=== PATIENT | male | born 1975 | race Caucasian/White ===

== ENCOUNTER → 2018-06-08 14:05 | Outpatient (CLI) | payer BC, SELFPAY ==
[2018-06-08 15:46] LABS: Absolute Lymphocyte Count 1.01 X10^3/ul (0.83-4.51); Absolute Neutrophil Count 5.2 X10^3/uL (2.0-7.7); Basophil# 0.02 X10^3/uL; Basophil% 0.3 % (0-1); Eosinophil# 0.12 X10^3/uL; Eosinophils% 1.7 % (0-5); Hemoglobin 14.5 g/dl (13.0-16.5); Lymphocyte # 1.01 X10^3/ul (4.0); Lymphocyte % 14.7 % (19-41); Mean Corp Hgb Conc 33.7 g/gl (32-36); Mean Corpuscular Hgb 30.4 pg (27.0-32.0); Mean Corpuscular Volume 90.1 fL (80-94); Mean Platelet Vol. 10.1 fl (6.2-12.0); Monocyte# 0.46 X10^3/uL; Monocyte% 6.7 % (0-10); Neutrophil # 5.24 X10^3/uL (2.7-7.7); Neutrophil % 76.5 % (47-70); Platelet Count 159 K/mm3 (150-450); RBC Distribution Width CV 13.2 % (11.6-14.6); Red Blood Count 4.77 M/mm3 (4.6-6.2); White Blood Count 6.9 K/mm3 (4.4-11.0)
[2018-06-08 15:47] LABS: POSITIVE COUNT NO; POSITIVE DIFFERENTIAL NO; POSITIVE MORPHOLOGY NO
[2018-06-08 15:56] LABS: ALB/GLOB Ratio 0.9 RATIO (0.9-2.4); AST(SGOT) 29 U/L (15-37); Alanine Aminotransfer ALT/SGPT 55 U/L (16-61); Albumin, Serum 3.7 g/dL (3.2-5.0); Alkaline Phosphatase 58 U/L (45-117); Anion Gap 12 (5-15); BUN 18 mg/dL (7-18); BUN/Creat Ratio 14.1 RATIO (10-20); CPK Total, Creatine Kinase 98 U/L (39-308); Calcium,Total 8.7 mg/dL (8.5-10.1); Chloride 102 mmol/L (98-107); Creatinine, Serum 1.28 mg/dL (0.70-1.30); EST Glomerular Filtration Rate 65 mL/min (>60); Est Glom Filt Rate - Afr Amer 78 mL/min (>60); Globulin 4.1 g/dL (2.2-4.2); Glucose 107 mg/dL (74-106); Potassium 3.8 mmol/L (3.5-5.1); Protein, Total 7.8 g/dL (6.4-8.2); Sodium Level 140 mmol/L (136-145)
== END ==
PROVIDERS: Family Provider Family Medicine; PCP Family Medicine; Visit Provider Family Medicine
DX: M79.1 Myalgia (principal)
CPT/HCPCS: 36415; 80053; 82550; 85025; 86140

== ENCOUNTER 2018-09-09 10:59 | Emergency (ER) | payer BC, SELFPAY ==
[2018-09-09] VITALS (10 sets, daily range): BP systolic 115–150; BP diastolic 72–123; PULSE 59–148; RESP 11–20; TEMP 36.5; O2SAT 96–100; BMI 33.7; BMI 34.2
[2018-09-09] MEDS: dilTIAZem 25 MG/5 ML Vial IV BOLUS (11:13)
[2018-09-09 11:42] LABS: Absolute Lymphocyte Count 2.47 X10^3/ul (0.83-4.51); Absolute Neutrophil Count 3.2 X10^3/uL (2.0-7.7); Basophil# 0.03 X10^3/uL; Basophil% 0.5 % (0-1); Eosinophil# 0.42 X10^3/uL; Eosinophils% 6.3 % (0-5); Hematocrit 44.4 % (40-54); Hemoglobin 14.7 g/dl (13.0-16.5); Lymphocyte # 2.47 X10^3/ul (4.0); Lymphocyte % 37.2 % (19-41); Mean Corp Hgb Conc 33.1 g/gl (32-36); Mean Corpuscular Volume 90.6 fL (80-94); Mean Platelet Vol. 9.6 fl (6.2-12.0); Monocyte# 0.49 X10^3/uL; Monocyte% 7.4 % (0-10); Neutrophil # 3.23 X10^3/uL (2.7-7.7); Neutrophil % 48.6 % (47-70); Platelet Count 195 K/mm3 (150-450); RBC Distribution Width CV 13.7 % (11.6-14.6); RBC Distribution Width SD 45.4 fl (35.1-43.9); White Blood Count 6.6 K/mm3 (4.4-11.0)
[2018-09-09 11:44] LABS: POSITIVE COUNT NO; POSITIVE DIFFERENTIAL NO; POSITIVE MORPHOLOGY NO
[2018-09-09 11:48] LABS: International Normalized Ratio 0.9; Prothrombin Time (Protime)PT. 12.3 SECONDS (11.7-14.9)
--- NOTE | 2018-09-09 11:48 | EKG12_ITS ---
Test Reason : CP Blood Pressure : / mmHG Vent. Rate : 129 BPM Atrial Rate : 113 BPM P-R Int : 000 ms QRS Dur : 096 ms QT Int : 324 ms P-R-T Axes : 000 035 -52 degrees QTc Int : 474 ms Atrial fibrillation with rapid ventricular response Nonspecific ST and T wave abnormality Abnormal ECG Confirmed by DIAZ PETERSON, SHARRI ([id number]), supervising editor trailer AZALEA ARIZA ([id number] on 09/12/2018 10:26:28 AM Referred By: NIURKA/GWEN Confirmed By:SHARRI PERALES MD
[2018-09-09 11:49] LABS: Partial Thromboplast Time 25.1 Seconds (24.1-36.2)
[2018-09-09 11:59] LABS: Anion Gap 13 (5-15); BUN 21 mg/dL (7-18); BUN/Creat Ratio 19.8 RATIO (10-20); Calcium,Total 8.7 mg/dL (8.5-10.1); Chloride 103 mmol/L (98-107); Creatinine, Serum 1.06 mg/dL (0.70-1.30); EST Glomerular Filtration Rate 80 mL/min (>60); Est Glom Filt Rate - Afr Amer 97 mL/min (>60); Estimated Creatinine Clearance 110.91 ml/min; Glucose 85 mg/dL (74-106); Potassium 3.6 mmol/L (3.5-5.1); Sodium Level 138 mmol/L (136-145)
[2018-09-09] MEDS: Enoxaparin 120 MG/0.8 ML Syringe SC (12:53)
[2018-09-09] MEDS: fentaNYL 100 MCG/2 ML Ampul 50 MCG IV (13:58)
[2018-09-09] MEDS: Propofol 200 MG/20 ML Vial IV BOLUS (14:00)
--- NOTE | 2018-09-09 14:07 | ED.RN ---
1401 - 100mg propofol given slowly by dr. cheatham. 1403 - 70mg propofol given slowing by dr. cheatham.
--- NOTE | 2018-09-09 14:44 | ED.VISSUMM ---
- ER Visit Summary Date of Service: 09/09/18 Chief Complaint: Palpitations History of Present Illness: The patient is a 43 M who presents with palpitations that began today while he was at his office working. Patient states he felt his heart going to an irregular rhythm. Patient describes as a fluttering. Patient states nothing has helped. Patient took 50 mg of metoprolol prior to arrival with no improvement. Patient admits to some shortness of breath with walking. Patient admits to some nausea but denies any vomiting. Patient denies any diaphoresis. Patient denies any cough or fever. Patient denies any lightheadedness. Patient states he had a history of atrial fibrillation in the past and had to be cardioverted for that. Physical Examination: Vital signs are stable except for a tachycardia of 148 and elevated blood pressure 150/111. Patient is afebrile. Patient is in no acute distress. Oral mucosa is pink and moist. Neck is supple. Trachea is midline. No JVD noted. Heart was irregularly irregular with no murmurs. Lungs are clear and equal bilaterally. There is good respiratory effort noted. Abdomen is soft and nontender. Cranial nerves II through XII are intact. There are no focal motor or sensory deficits noted. The remaining physical exam is within normal limits. Test Results: EKG showed atrial fibrillation with a rate of 129. There are nonspecific ST-T wave changes. EKG from his office was faxed over and was essentially unchanged. CBC, metabolic profile, and troponin were obtained and were all essentially within normal limits. Emergency Department Course and Treatment: Patient was given Cardizem 25 mg bolus. Patient's heart rate improved to 110 but remained in atrial fibrillation. Case was discussed with Dr. Pérez. He recommended giving the patient Lovenox and waiting 1 hour before cardioversion. Patient was given 120 mg of Lovenox. Patient remained in atrial fibrillation. Patient was consented for cardioversion. Patient was advised of the risks and benefits of cardioversion. Patient understood and was agreeable to have cardioversion done. Patient was given 50 mcg of fentanyl and 170 mg of propofol. Patient was sedated. Patient was cardioverted with 200 J of synchronized cardioversion. Patient converted to a normal sinus rhythm. 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 Patient felt better on reevaluation. Dr. Pérez was in to see the patient. He recommended placing the patient on Eliquis 5 mg twice daily for 1 month. Patient has samples of this in his office. He will take these as prescribed. Patient was instructed to follow-up with Dr. Pérez or Dr. Travis in 1-2 weeks as needed. Patient understood and was agreeable with the plan. All questions were answered. Disposition: Discharged home Impression: 1. Atrial fibrillation with rapid ventricular response 2. Electrical cardioversion 3. Procedural sedation This note was generated with [employer] dictation software. It may contain incorrect words, spelling, and punctuation that were not noted in review of the chart prior to signing ED Disposition - Plan for ED Patient: Disposition: Home or Assisted Living Chief Complaint: Palpitations Diagnosis: Paroxysmal atrial fibrillation Instructions: ED Afib Referrals: Nash Callahan MD [Primary Care Provider] - Additional Instructions: Take Eliquis 5 mg twice daily for 1 month
== END 2018-09-09 14:53 | disposition home or self-care (01) ==
PROVIDERS: Emergency Provider Emergency Medicine; Family Provider Family Medicine; PCP Family Medicine
DX: I48.0 Paroxysmal atrial fibrillation (principal); R03.0 Elevated blood-pressure reading, without diagnosis of hypertension; Z79.82 Long term (current) use of aspirin; Z79.899 Other long term (current) drug therapy
CPT/HCPCS: 92960; 36591; 80048; 84484; 85025; 85610; 85730; 93005; 96372; 96374; 96375; 99285; J7030; A4216

== ENCOUNTER → 2018-12-08 08:18 | Outpatient (CLI) | payer BC, SELFPAY ==
[2018-12-06 14:12] VITALS: BMI 33.7
[2018-12-08 10:55] LABS: AST(SGOT) 30 U/L (15-37); Alanine Aminotransfer ALT/SGPT 48 U/L (16-61); Albumin, Serum 3.7 g/dL (3.2-5.0); Alkaline Phosphatase 54 U/L (45-117); Anion Gap 10 (5-15); BUN 16 mg/dL (7-18); BUN/Creat Ratio 17.1 RATIO (10-20); Bilirubin, Direct 0.23 mg/dL (0.00-0.30); CPK Total, Creatine Kinase 190 U/L (39-308); Calcium,Total 8.4 mg/dL (8.5-10.1); Chloride 110 mmol/L (98-107); Cholesterol 192 mg/dL (200); Creatinine, Serum 0.94 mg/dL (0.70-1.30); EST Glomerular Filtration Rate 92 mL/min (>60); Est Glom Filt Rate - Afr Amer 112 mL/min (>60); Globulin 3.8 g/dL (2.2-4.2); Glucose 95 mg/dL (74-106); High Density Lipoprotein 72 mg/dL; Potassium 4.3 mmol/L (3.5-5.1); Protein, Total 7.5 g/dL (6.4-8.2); Sodium Level 143 mmol/L (136-145); T4 Total, Thyroxin 6.5 ug/dL (4.5-12.1); Thyroid Stim Hormone (TSH) 2.37 uIU/mL (0.358-3.74); Triglycerides 185 mg/dL; Very Low Density Lipoprotein 37 mg/dL (5-40)
[2018-12-09 20:07] LABS: Endomysial Antibody IgA Negative (Negative)
[2018-12-10 09:29] LABS: Immunoglobulin A 322 mg/dL (90-386); t-Transglutaminase IgA <2 U/mL (0-3)
[2018-12-11 13:56] LABS: Testosterone, Free 3.91 ng/dL (5.00-21.00)
[2018-12-12 15:21] LABS: Testosterone, % Free 2.06 % (1.50-4.20); Testosterone, Total 190 ng/dL (264-916)
== END ==
PROVIDERS: Internal Medicine Cardiovascular Disease; Family Provider Family Medicine; PCP Family Medicine; Referring Provider Family Medicine; Visit Provider Family Medicine
DX: I48.0 Paroxysmal atrial fibrillation (principal); R19.7 Diarrhea, unspecified
CPT/HCPCS: 36415; 80053; 80061; 82248; 82550; 82784; 83516; 83735; 84402; 84403; 84436; 84443; 86255

== ENCOUNTER → 2018-12-13 06:59 | Outpatient (CLI) | payer BC, SELFPAY ==
[2018-12-06 14:12] VITALS: BMI 33.7
--- NOTE | 2018-12-13 07:00 | ECHOD_ITS ---
Reason For Study: Paroxysal A. fib Procedure This was a 2D Doppler, Color Flow transthoracic echocardiogram. The exam was of adequate technical quality. Exam performed in department. Left Ventricle Normal LV size. Left ventricular systolic function is normal. The estimated ejection fraction is 60 %. The global longitudinal strain = -20 % (normal). No evidence for diastolic dysfunction. No regional wall motion abnormalities noted. Right Ventricle Normal RV size. Normal systolic function. Atria Borderline to mildly enlarged left atrium. Normal right atrium. No doppler evidence for ASD. Mitral Valve There is no mitral annular calcification. Normal mitral valve. Mild (1+) mitral valve insufficiency. Tricuspid Valve Normal tricuspid valve. Trivial tricuspid valve insufficiency. Right ventricular systolic pressure estimated to be 25 mmHg. Aortic Valve Trisinus/trileaflet aortic valve. Normal aortic valve. Pulmonic Valve The pulmonic valve is not well visualized. Great Vessels Normal sized aortic root. Pericardium/Pleural No pericardial effusion. MMode/2D Measurements & Calculations LVIDd: 5.2 cm IVSd: 1.2 cm Ao root diam: 3.8 cm LVIDs: 3.7 cm LVPWd: 1.1 cm RVDd: 3.9 cm FS: 29.0 % LAV(MOD-bp): 98.2 ml LA A4 area: 24.0 cm2 LA dimension(2D): 3.5 cm LAV(MOD-bp) Indexed: 37.2 ml/m2 LAV(MOD-sp2): 125.0 ml LAV(MOD-sp4): 74.7 ml RA A4 area: 18.4 cm2 Doppler Measurements & Calculations MV E max floyd: 83.5 cm/sec Lat Peak E' Floyd: 12.9 cm/sec Med Peak E' Floyd: 11.4 cm/sec MV A max floyd: 48.0 cm/sec E/E' lat: 6.5 E/E' med: 7.3 MV E/A: 1.7 Ao V2 max: 103.4 cm/sec LV V1 max: 85.6 cm/sec PA V2 max: 102.9 cm/sec Ao max P.3 mmHg LV V1 max P.9 mmHg TR max floyd: 235.5 cm/sec TR max P.2 mmHg Interpretation Summary Left ventricular systolic function is normal. The estimated ejection fraction is 60 %. The global longitudinal strain = -20 % (normal). Borderline to mildly enlarged left atrium. Mild (1+) mitral valve insufficiency. Trivial tricuspid valve insufficiency. Right ventricular systolic pressure estimated to be 25 mmHg. No evidence for diastolic dysfunction. Ordering Physician: Dago Travis Referring Physician: Nash Callahan MD Performed By: Madelyn Rizvi RDCS
== END ==
PROVIDERS: Family Provider Family Medicine; PCP Family Medicine; Referring Provider Internal Medicine Cardiovascular Disease; Visit Provider Internal Medicine Cardiovascular Disease
DX: I48.0 Paroxysmal atrial fibrillation (principal)
CPT/HCPCS: 93306

== ENCOUNTER → 2018-12-19 14:33 | Outpatient (CLI) | payer BC, SELFPAY ==
[2018-12-06 14:12] VITALS: BMI 33.7
[2018-12-19 18:02] LABS: PSA,Total - Annual Screen 0.55 ng/mL (0.00-4.00)
== END ==
PROVIDERS: Family Provider Family Medicine; PCP Family Medicine; Referring Provider Family Medicine; Visit Provider Family Medicine
DX: R79.89 Other specified abnormal findings of blood chemistry (principal)
CPT/HCPCS: 36415; 84153; 84402; 84403; G0103

== ENCOUNTER → 2019-03-06 10:34 | Outpatient (CLI) | payer BC, SELFPAY ==
[2018-12-06 14:12] VITALS: BMI 33.7
[2019-03-06 12:32] LABS: Absolute Lymphocyte Count 2.24 X10^3/ul (0.83-4.51); Absolute Neutrophil Count 5.2 X10^3/uL (2.0-7.7); Basophil# 0.02 X10^3/uL; Basophil% 0.2 % (0-1); Eosinophil# 0.24 X10^3/uL; Eosinophils% 2.8 % (0-5); Hemoglobin 17.3 g/dl (13.0-16.5); Lymphocyte # 2.24 X10^3/ul (4.0); Mean Corp Hgb Conc 33.9 g/gl (32-36); Mean Corpuscular Volume 91.4 fL (80-94); Monocyte# 0.89 X10^3/uL; Monocyte% 10.3 % (0-10); Neutrophil # 5.23 X10^3/uL (2.7-7.7); Neutrophil % 60.7 % (47-70); Platelet Count 205 K/mm3 (150-450); RBC Distribution Width CV 13.9 % (11.6-14.6); RBC Distribution Width SD 47.1 fl (35.1-43.9); Red Blood Count 5.58 M/mm3 (4.6-6.2); White Blood Count 8.6 K/mm3 (4.4-11.0)
[2019-03-06 12:35] LABS: POSITIVE COUNT NO; POSITIVE DIFFERENTIAL NO; POSITIVE MORPHOLOGY NO
[2019-03-06 13:18] LABS: ALB/GLOB Ratio 0.9 RATIO (0.9-2.4); AST(SGOT) 24 U/L (15-37); Alanine Aminotransfer ALT/SGPT 33 U/L (16-61); Albumin, Serum 3.7 g/dL (3.2-5.0); Alkaline Phosphatase 57 U/L (45-117); Anion Gap 8 (5-15); BUN 11 mg/dL (7-18); BUN/Creat Ratio 10.1 RATIO (10-20); Calcium,Total 8.6 mg/dL (8.5-10.1); Chloride 105 mmol/L (98-107); Cholesterol 176 mg/dL (200); Creatinine, Serum 1.09 mg/dL (0.70-1.30); EST Glomerular Filtration Rate 78 mL/min (>60); Est Glom Filt Rate - Afr Amer 94 mL/min (>60); Globulin 4.2 g/dL (2.2-4.2); Glucose 90 mg/dL (74-106); High Density Lipoprotein 62 mg/dL; Potassium 4.5 mmol/L (3.5-5.1); Protein, Total 7.9 g/dL (6.4-8.2); Sodium Level 138 mmol/L (136-145); Triglycerides 233 mg/dL; Very Low Density Lipoprotein 47 mg/dL (5-40)
== END ==
PROVIDERS: Family Provider Family Medicine; PCP Family Medicine; Visit Provider Family Medicine
DX: I48.0 Paroxysmal atrial fibrillation (principal); E78.00 Pure hypercholesterolemia, unspecified; R79.89 Other specified abnormal findings of blood chemistry
CPT/HCPCS: 36415; 80053; 80061; 84403; 85025

== ENCOUNTER 2019-04-12 03:10 | Inpatient (IN) | payer BC, SELFPAY ==
[2018-12-06 14:12] VITALS: BMI 33.7
[2019-04-12] VITALS (8 sets, daily range): BP systolic 135–141; BP diastolic 85–95; PULSE 77–85; RESP 18; TEMP 36.4–37.4; O2SAT 95–98; BMI 35.9; BMI 36.0
--- NOTE | 2019-04-12 03:30 | CT_ITS ---
STUDY: CT ABDOMEN AND PELVIS WITHOUT CONTRAST REASON FOR EXAM: Unknown, 43 years old. Small bowel obstruction RADIATION DOSAGE (If Supplied By Facility): CTDIvol = ( 21.09 ) mGy, DLP = ( 1248.70 ) mGycm TECHNIQUE: Transaxial images were obtained from the dome of the diaphragm to the symphysis pubis without oral contrast, and without intravenous contrast. Sagittal and coronal images were reconstructed. Individualized dose optimization techniques were used for this CT. COMPARISON: None. FINDINGS: The visualized lung bases are unremarkable. The visualized portions of the heart are within normal limits. Normal liver. Normal gallbladder and extrahepatic biliary system. Normal spleen. Normal pancreas. Normal bilateral adrenal glands. Normal right kidney. Normal left kidney. Normal visualized stomach. There are multiple dilated fluid-filled loops of small bowel with focal transition point in the right lower quadrant, series 2 image 106.. The colon is decompressed. The appendix is nonvisualized. No evidence for pneumatosis or intra-abdominal free air. Normal abdominal aorta. Normal inferior vena cava. Normal retroperitoneum. Normal urinary bladder. Normal abdominal wall. Normal osseous structures. CT/Abdomen/Pelvis without Cont IMPRESSION: Dilated small bowel loops measuring up to 4.9 cm in diameter. There is focal transition point within the right lower quadrant involving the distal ileum. There is a short segment of distal ileum to the level of the terminal ileum that demonstrates circumferential bowel wall thickening and is decompressed, this may be infectious inflammatory in etiology. Findings consistent with distal small bowel obstruction. This is may be partial due to possible residual oral contrast within the terminal ileum and cecum that demonstrated small amount of high density material. Correlate with prior imaging and oral contrast administration. Electronically Signed: Jonathon Mendez, at 4:34 EDT Tel , Service support ,
[2019-04-12 05:09] LABS: ALB/GLOB Ratio 0.8 RATIO (0.9-2.4); AST(SGOT) 26 U/L (15-37); Alanine Aminotransfer ALT/SGPT 33 U/L (16-61); Albumin, Serum 3.4 g/dL (3.2-5.0); Alkaline Phosphatase 64 U/L (45-117); Anion Gap 12 (5-15); BUN 7 mg/dL (7-18); BUN/Creat Ratio 6.4 RATIO (10-20); Calcium,Total 8.6 mg/dL (8.5-10.1); Chloride 104 mmol/L (98-107); Creatinine, Serum 1.09 mg/dL (0.70-1.30); EST Glomerular Filtration Rate 78 mL/min (>60); Est Glom Filt Rate - Afr Amer 95 mL/min (>60); Globulin 4.4 g/dL (2.2-4.2); Glucose 103 mg/dL (74-106); Potassium 3.5 mmol/L (3.5-5.1); Protein, Total 7.8 g/dL (6.4-8.2); Sodium Level 140 mmol/L (136-145)
[2019-04-12 05:11] LABS: Absolute Lymphocyte Count 0.98 X10^3/ul (0.83-4.51); Absolute Neutrophil Count 2.8 X10^3/uL (2.0-7.7); Basophil# 0.02 X10^3/uL; Basophil% 0.4 % (0-1); Eosinophil# 0.16 X10^3/uL; Eosinophils% 3.3 % (0-5); Hematocrit 50.8 % (40-54); Hemoglobin 17.6 g/dl (13.0-16.5); Lymphocyte # 0.98 X10^3/ul (4.0); Lymphocyte % 19.9 % (19-41); Mean Corp Hgb Conc 34.6 g/gl (32-36); Mean Corpuscular Hgb 30.1 pg (27.0-32.0); Mean Corpuscular Volume 86.8 fL (80-94); Mean Platelet Vol. 9.5 fl (6.2-12.0); Monocyte# 1.01 X10^3/uL; Monocyte% 20.5 % (0-10); Neutrophil # 2.75 X10^3/uL (2.7-7.7); Neutrophil % 55.9 % (47-70); Platelet Count 180 K/mm3 (150-450); RBC Distribution Width CV 13.9 % (11.6-14.6); RBC Distribution Width SD 44.4 fl (35.1-43.9); Red Blood Count 5.85 M/mm3 (4.6-6.2); White Blood Count 4.9 K/mm3 (4.4-11.0)
[2019-04-12 05:12] LABS: POSITIVE COUNT NO; POSITIVE DIFFERENTIAL NO; POSITIVE MORPHOLOGY NO; Partial Thromboplast Time 29.3 Seconds (24.1-36.2); Prothrombin Time (Protime)PT. 13.3 SECONDS (11.7-14.9)
--- NOTE | 2019-04-12 05:12 | PCM.HP.STD ---
Problem List (1) SBO (small bowel obstruction) Status: Acute (2) Essential hypertension Status: Chronic (3) Paroxysmal atrial fibrillation Status: Chronic (4) Hyperlipidemia Status: Chronic Qualifiers: Hyperlipidemia type: unspecified (5) GERD (gastroesophageal reflux disease) Status: Chronic Qualifiers: Esophagitis presence: esophagitis presence not specified Qualified Code(s): K21.9 - Gastro-esophageal reflux disease without esophagitis (6) IBS (irritable bowel syndrome) Status: Chronic Qualifiers: Irritable bowel syndrome type: unspecified Qualified Code(s): K58.9 - Irritable bowel syndrome without diarrhea History of Present Illness Date of Admission: 04/12/19 Chief Complaint: Abdominal pain The patient is a 43 y/o M w/ PMHx: PAF, CHEY on CPAP q HS, GERD, HTN, HLD, Hx Carcinoid Tumor Appendix s/p Appendectomy, Hx Ruptured Peritonitis s/p R hemicolectomy, Hx Prior SBO who presents to the [facility] ED on 02/10/19 w/ history of recent evaluation at [facility] in [place], [place] following onset notable severe, 10/10 primarily L sided abdominal pain with nausea and emesis as well as distention with diagnosis SBO w/ conservative treatment w/ some improvement with transition to clears with then onset recurrent sharp, 10/10 L sided, lower quadrant awakening him from sleep at 2:15 am on day of ED presentation with no nausea or emesis. He notes bowel movements since resumption of bowel function have been number and watery but he notes he has been limited to clears. He did reach out to his surgeon, Dr. Horn and there had been plan of 04/12/19 SBFT study for further evaluation prior to his current acute presentation. ED evaluation including CT A/P with noted recurrent SBO. Dr. Horn was contacted and requested placement NGT which will be performed in the ED prior to transition to SC. 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 Family history of hypertension Z82.49 Fatigue R53.83 History of small bowel obstruction Z87.19 CHEY (obstructive sleep apnea) G47.33 History of Carcinoid Tumor (Inactive) Hx SBO (Inactive) Z87.19 Allergies MUSHROOMS Adverse Reaction (Uncoded 12/06/18 14:06) Other Home Medications: Ambulatory Orders Medication Instructions Recorded aspirin 81 mg tablet,delayed 81 mg PO QDAY 11/19/17 release cholecalciferol (vitamin D3) 2,000 2,000 unit PO QDAY cap 11/19/17 unit capsule vitamin B complex and vit C no.3 1 cap PO QDAY 11/19/17 15 mg-10 mg-50 mg-5 mg-300 mg capsule vitamin E (dl, acetate) 1,000 unit 1,000 unit PO QDAY 11/19/17 capsule bupropion HCl XL 300 mg 24 hr 300 mg PO QAM 11/23/17 tablet, extended release rosuvastatin 20 mg tablet 20 mg PO QDAY #30 tab 05/24/18 diltiazem CD 120 mg 120 mg PO DAILY #30 cap 09/15/18 capsule,extended release 24 hr flecainide 100 mg tablet 300 mg PO ONCE PRN #30 tab 09/22/18 Surgical History: Surgical History (Last Reviewed 12/06/18 @ 14:08 by Renee Byrd) H/O right hemicolectomy Z98.890, Z90.49 Hx of appendectomy Z98.890, Z90.49 Surgical History: - - History of carcinoid tumor/appendix removal, R crissy-colectomy following ruptured peritonitis. Psychiatric History: No pertinent psych hx Lives: Spouse/ Significant Other, With Family Smoking Status: Never smoker - Notes only occasional cigarette while in college. Tobacco Use: Non-smoker Alcohol: Occasional Drugs: None - *Family History Maternal Family History: Family History (Last Reviewed 12/06/18 @ 14:08 by Renee Byrd) Sister Hypertension History Items: Heart Disease - History of rheumatic heart disease in mother., - - History of cerebellar ataxia in his mother. Paternal Family History: Family History (Last Reviewed 12/06/18 @ 14:08 by Renee Byrd) Sister Hypertension History Items: - - Patient notes that his father is healthy, no medical issues including HD, DM, cancer. Review of Systems Comment: Admission Review of Systems: CONSTITUTIONAL: No weight loss, fever, chills, + weakness or fatigue. HEENT: Eyes: No visual loss, blurred vision, double vision or yellow sclerae. Ears, Nose, Throat: No hearing loss, sneezing, congestion, runny nose or sore throat. SKIN: No rash or itching, lesions, wounds. CARDIOVASCULAR: No chest pain, chest pressure or chest discomfort, palpitations, edema, orthopnea, syncopal events. RESPIRATORY: No shortness of breath, cough or sputum, wheezing, hemoptysis. GASTROINTESTINAL: + anorexia, nausea, vomiting, diarrhea, abdominal pain, No melena, BRBPR. GENITOURINARY: No dysuria, frequency, urgency or retention. NEUROLOGICAL: No headache, dizziness, syncope, paralysis, ataxia, numbness or tingling in the extremities, focal weakness, change in bowel or bladder control, seizure. MUSCULOSKELETAL: No muscle, back pain, joint pain or stiffness. HEMATOLOGIC: No anemia, bleeding or bruising. LYMPHATICS: No enlarged nodes. No history of splenectomy. PSYCHIATRIC: No history of depression or anxiety. ENDOCRINOLOGIC: No reports of sweating, cold or heat intolerance. No polyuria or polydipsia. ALLERGIES: No history of asthma, hives, eczema or rhinitis. VTE Information - Inpt Only VTE Present on Admission: No VTE Mechan Device Prophylaxis: SCD's VTE Pharm Prophylaxis ordered?: Yes Patient Problems: Active and Suspected Problems (Last Reviewed 12/06/18 @ 14:08 by Renee Byrd) SBO (small bowel obstruction) (Acute) Subjective: Seated upright in the ED bed, fatigued, uncomfortable appearing. Objective: Admission VS: T 99.0, BP 153/98, HR 77, 19, 98% RA Physical Examination: General: awake, alert, oriented x 3 and cooperative, seated upright in the ED bed, uncomfortable appearing, fatigued. Skin: normal color, turgor, no icterus, cyanosis, some irritation to BL nares. HEENT: AT/NC, EOMI, PERRLA, mildly dry MM, mild irritation to BL nares, no carotid bruits or JVD noted. Lungs: CTA bilaterally, moderate effort, moderate decrease BL bases, no rales, ronchi or wheezing. Heart: Regular rate and rhythm; no gallop, rub audible. Abdomen: soft, TTP, > LLQ, absent BS L side, very distant, high RUQ, difficult to assess HSM secondary to distention and pain. Extremities: no cyanosis, clubbing, or edema. Neurological: patient awake, alert, oriented x 3; cognitive function intact; pupils equally reactive to light and accomodation; cranial nerves II-XII grossly normal, moving all 4 extremities, no focal deficits, strength severely globally decreased secondary to acute presentation. Psychiatric: affect appears fatigued, no acute evidence of depressive or anxiety feelings. - Physical Exam Body Mass Index (BMI) 33.7 Laboratory Tests Past 24 Hrs 04/12/19 04/12/19 04/12/19 03:15 03:15 03:15 WBC Pending RBC Pending Hgb Pending Hct Pending MCV Pending MCH Pending MCHC Pending RDW Pending RDW Differential Pending Plt Count Pending Neut % (Auto) Pending Absolute Neuts (auto) Pending Total Counted Pending PT 13.3 INR 1.0 APTT 29.3 Sodium 140 Potassium 3.5 Chloride 104 Carbon Dioxide 24.0 Anion Gap 12 BUN 7 Creatinine 1.09 Est GFR (MDRD) Af Amer 95 Est GFR (MDRD) Non-Af 78 BUN/Creatinine Ratio 6.4 L Glucose 103 Lactic Acid Calcium 8.6 Total Bilirubin 0.90 AST 26 ALT 33 Alkaline Phosphatase 64 Total Protein 7.8 Albumin 3.4 Globulin 4.4 H Albumin/Globulin Ratio 0.8 L 04/12/19 05:00 WBC RBC Hgb Hct MCV MCH MCHC RDW RDW Differential Plt Count Neut % (Auto) Absolute Neuts (auto) Total Counted PT INR APTT Sodium Potassium Chloride Carbon Dioxide Anion Gap BUN Creatinine Est GFR (MDRD) Af Amer Est GFR (MDRD) Non-Af BUN/Creatinine Ratio Glucose Lactic Acid Pending Calcium Total Bilirubin AST ALT Alkaline Phosphatase Total Protein Albumin Globulin Albumin/Globulin Ratio Assessment/Plan All Active Problems (Last Reviewed 12/06/18 @ 14:08 by Renee Byrd) SBO (small bowel obstruction) (Acute) The patient is a 43 y/o M w/ PMHx: PAF, CHEY on CPAP q HS, HTN, HLD, GERD, Hx Carcinoid Tumor Appendix s/p Appendectomy, Hx Ruptured Peritonitis s/p R hemicolectomy, Hx Prior SBO who presents to the [facility] ED on 02/10/19 w/ history of recent OSH evaluation for SBO, improved transiently w/ recurrent onset sharp, 10/10 L sided, lower abdominal quadrant awakening him from sleep at 2:15 am. (1) Abdominal pain w/ Recurrent SBO w/ recent pSBO at OSH: Will admit to [facility], maintain on IVFs, ED to place NGT and will continue NGT to suction, strict I&Os, IV pain/anti-emetics PRN, serial KUB as needed to montior bowel function, PPI IV, maintain NPO on bowel rest. General surgery Dr. Horn consulted, pending. Recent OSH admission records requested and CT A/P being uploaded also. (2) Hx Carcinoid Tumor Appendix: s/p Appendectomy, recent CT A/P at OSH being uploaded, per report no evidence of concerning masses/lesions. (3) Hx Peritonitis, Ruptured: s/p R hemicolectomy, complicates presentation, likely adhesions with history of frequent SBO following but last since current presentation ~ 20 years prior. (4) PAF: History of PAF, s/p prior cardioversion, postulated secondary to CHEY, will temporarily hold patient diltiazem regimen. (5) Hypertension: Holding patient oral diltiazem, PRN IV Hydralazine in interim. (6) Hyperlipidemia: Holding statin therapy. (7) CHEY: Holding CPAP given impending NGT placement. (8) GERD: IV PPI. (9) DVT Prophylaxis: SCDs, lovenox. Code Visit Inpatient E&M: 00395 Init Hosp L2
--- NOTE | 2019-04-12 05:22 | ED.VISSUMM ---
- ER Visit Summary Date of Service: 04/12/19 Chief Complaint: Abdominal pain History of Present Illness: The patient is a 43 M who presents for left lower quadrant abdominal pain. Onset was today. Patient recently was admitted 4 days ago at an outside hospital for a small bowel obstruction. Patient was discharged yesterday and stated at that time he had a partially obstructed bowel still. He has not been passing any flatus but was having diarrhea up until 3 hours prior to presentation. Patient has nausea but denies any vomiting. No fever. Pain is currently severe. Patient has history of carcinoid tumor of the appendix, is status post appendectomy and right hemicolectomy, and has had multiple small bowel obstructions since. Physical Examination: Vital signs: afebrile, hemodynamically stable, no hypoxia on room air General: well nourished, well developed, in no distress Skin: warm, dry, no rash, no pallor HEENT: normocephalic and atraumatic; PERRL, EOMI, moist mucous membranes Cardiovascular: regular rate and rhythm without murmurs, no peripheral edema, 2+ pulses all distal extremities Respiratory: No increased work of breathing, lungs are clear to auscultation bilaterally, no rales, rhonchi or wheezing Abdominal: Abdomen is distended, bowel sounds are quiet, abdomen is tender, no guarding or rebound MSK: Moves all extremities, no deformities, normal strength Neuro: Awake and alert, oriented ?4. No facial droop, sensation and motor function intact and symmetric Test Results: Abnormal Lab Results 04/12/19 04/12/19 04/12/19 03:15 03:15 03:15 WBC 4.9 RBC 5.85 Hgb 17.6 H Hct 50.8 MCV 86.8 MCH 30.1 MCHC 34.6 RDW 13.9 RDW Differential 44.4 H Plt Count 180 MPV 9.5 Immature Gran % (Auto) 0.000 Neut % (Auto) 55.9 Lymph % (Auto) 19.9 [place] % (Auto) 20.5 H Eos % (Auto) 3.3 Baso % (Auto) 0.4 Absolute Neuts (auto) 2.8 Absolute Lymphs (auto) 0.98 Total Counted Not Reportable PT 13.3 INR 1.0 APTT 29.3 Sodium 140 Potassium 3.5 Chloride 104 Carbon Dioxide 24.0 Anion Gap 12 BUN 7 Creatinine 1.09 Est GFR (MDRD) Af Amer 95 Est GFR (MDRD) Non-Af 78 BUN/Creatinine Ratio 6.4 L Glucose 103 Calcium 8.6 Total Bilirubin 0.90 AST 26 ALT 33 Alkaline Phosphatase 64 Total Protein 7.8 Albumin 3.4 Globulin 4.4 H Albumin/Globulin Ratio 0.8 L Emergency Department Course and Treatment: Patient's history and physical exam is concerning for a recurrent bowel obstruction. Patient is having only mild nausea at this time and no vomiting, thus NG tube was not immediately placed. Labs showed no leukocytosis. BMP and hepatic function was within normal limits. CT of the abdomen and pelvis was concerning for a distal mall bowel obstruction. Patient received Dilaudid and Zofran for pain with good control. He was given IV fluid bolus. Patient was discussed with Dr. Land for admission medically. He was discussed with Dr. Horn who will be the surgeon on consult. An NG tube was placed at this time. Lactate is pending. Patient received additional Dilaudid for return of pain. Patient admitted for further management of small bowel obstruction. Treatment Plan: [] Disposition: [] Impression: Small bowel obstruction This note was generated with [employer] dictation software. It may contain incorrect words, spelling, and punctuation that were not noted in review of the chart prior to signing ED Disposition - Plan for ED Patient: Referrals: Nash Callahan MD [Primary Care Provider] -
[2019-04-12 05:35] LABS: Lactic Acid 0.8 mmol/L (0.4-2.0)
--- NOTE | 2019-04-12 06:20 | RAD_ITS ---
STUDY: X-RAY - ABDOMEN/PELVIS REASON FOR EXAM: Male, 43 years old. Nasogastric tube placement. TECHNIQUE: AP portable upright COMPARISON: None. FINDINGS: Gastric tube coils in the stomach. A safety pin projects over the gastric bubble likely external. There are multiple dilated loops of small bowel visualized within the upper abdomen concerning for small bowel obstruction. The visualized liver, spleen and kidneys are grossly normal in size and morphology. Normal soft tissue structures. Normal visualized osseous structures. RAD/Abdomen Single View IMPRESSION: Interval insertion of a gastric tube coiling in the stomach. Electronically Signed: Jonathon Mendez, at 6:48 EDT Tel , Service support ,
[2019-04-12] MEDS: 0.9% Normal Saline 1,000 ML 125 ML IV ×2 (07:22→15:09)
[2019-04-12] MEDS: Ondansetron 4 MG/2 ML Vial IV ×3 (07:23→20:48)
[2019-04-12] MEDS: HYDROmorphone 1 MG/ML Syringe IV ×5 (07:26→23:05)
--- NOTE | 2019-04-12 08:09 | EKGRS_ITS ---
Test Reason : PRE-OP Blood Pressure : / mmHG Vent. Rate : 072 BPM Atrial Rate : 072 BPM P-R Int : 156 ms QRS Dur : 096 ms QT Int : 380 ms P-R-T Axes : 030 -08 -01 degrees QTc Int : 416 ms Normal sinus rhythm Normal ECG Confirmed by LOCO PETERSON, LEONOR ([id number]), senior editor JAYLEN PITTMAN ([id number]) on 04/19/2019 12:43:55 PM Referred By: Sabrina Land Confirmed By:LEONOR ADAN MD
--- NOTE | 2019-04-12 08:16 | CPS ---
Pt is on a CPAP @[facility], family will bring machine in. Pt thinks he has a mask that might be able to get a seal with the NG tube in. R.T. placed 3pm O2 via NC because he desats while sleeping. Informed Beatriz ABRAHAM of this also.
--- NOTE | 2019-04-12 08:33 | NURSING ---
This RN called CT and requested comparison report per Dr. Horn's order. Notified that due to down time was placed in chart. LAB COURIER returned call and this RN notified her that we needed to be sure that Dr. Horn was able to have the report. Report faxed to OR.
[2019-04-12] MEDS: proMETHazine 25 MG/ML Syringe 12.5 MG IV ×3 (09:15→23:05)
--- NOTE | 2019-04-12 10:35 | CON.PCM_ITS ---
Problem List (1) SBO (small bowel obstruction) Status: Acute Reason for Consult Date of Consultation: 04/12/19 Reason for Consultation: Small bowel obstruction History of Present Illness: The patient is a 43 year old M who presented to the ED this morning with a 10/10 pain in his abdomen. Patient was hospitalized over the weekend at [facility] in [place], [place] for severe abdominal pain mostly on the left lower quadrant with associated nausea and vomiting and abdominal distention. CT of the abdomen/pelvis demonstrated partial small bowel obstruction. He was treated with conservative measures and discharged yesterday. He was passing flatus and having bowel movements. He was told to stay on clear liquids. Patient noted last night his pain became more severe again. He took an oxycodone that he was sent home with from [place] which did not help. He noted the pain woke him from sleep. He noted since the pain has increased he has not been passing flatus. Patient notes he had been having more diarrhea. Patient has had a complicated abdominal surgical history which includes appendectomy at the age of 13 due to ruptured appendicitis. 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 Patient's last colonoscopy by Dr. Saab was in 10/1999 findings demonstrated unremarkable colon. Patient has had history of recurrent small bowel obstructions with his last episode being 14 years ago. Patient also has paroxysmal atrial fibrillation. He is maintained on a daily aspirin. 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 Patient notes having a previous cardioversion. Patient denies previous myocardial infarction, stroke or blood clots. Patient denies complications with anesthesia previously. Patient has a history of sleep apnea. 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 Family history of hypertension Z82.49 Fatigue R53.83 History of small bowel obstruction Z87.19 CHEY (obstructive sleep apnea) G47.33 History of Carcinoid Tumor (Inactive) Hx SBO (Inactive) Z87.19 Allergies MUSHROOMS Adverse Reaction (Uncoded 12/06/18 14:06) Other Home Medications: Ambulatory Orders Medication Instructions Recorded aspirin 81 mg tablet,delayed 81 mg PO QDAY 11/19/17 release cholecalciferol (vitamin D3) 2,000 2,000 unit PO QDAY cap 11/19/17 unit capsule vitamin B complex and vit C no.3 1 cap PO QDAY 11/19/17 15 mg-10 mg-50 mg-5 mg-300 mg capsule vitamin E (dl, acetate) 1,000 unit 1,000 unit PO QDAY 11/19/17 capsule bupropion HCl XL 300 mg 24 hr 300 mg PO QAM 11/23/17 tablet, extended release rosuvastatin 20 mg tablet 20 mg PO QDAY #30 tab 05/24/18 diltiazem CD 120 mg 120 mg PO DAILY #30 cap 09/15/18 capsule,extended release 24 hr flecainide 100 mg tablet 300 mg PO ONCE PRN #30 tab 09/22/18 Surgical History: Surgical History (Last Reviewed 04/12/19 @ 11:15 by Katy Elizondo PA-C) H/O right hemicolectomy Z98.890, Z90.49 Hx of appendectomy Z98.890, Z90.49 Surgical History: - - History of carcinoid tumor/appendix removal, R crissy- colectomy following ruptured peritonitis. Psychiatric History: No pertinent psych hx Lives: Spouse/ Significant Other, With Family Smoking Status: Never smoker Tobacco Use: Non-smoker Alcohol: Occasional Drugs: None - *Family History Maternal Family History: Family History (Last Reviewed 04/12/19 @ 11:16 by Katy Elizondo PA-C) Sister Hypertension History Items: Heart Disease - History of rheumatic heart disease in mother., - - History of cerebellar ataxia in his mother. Paternal Family History: Family History (Last Reviewed 04/12/19 @ 11:16 by Katy Elizondo PA-C) Sister Hypertension History Items: - - Patient notes that his father is healthy, no medical issues including HD, DM, cancer. Review of Systems Constitutional: Reports: Anorexia HEENT: Denies: Head Aches, Sinus Congestion, Sinus Drainage Cardiovascular: Denies: Chest Pain, Palpitations Respiratory: Denies: Cough, Shortness of breath at rest, Sputum production Gastrointestinal: Reports: Abdominal Pain, Diarrhea, Nausea, Vomiting Genitourinary: Denies: Dysuria Musculoskeletal: Denies: Joint Pain, Joint Tenderness Skin: Denies: Rash, Wounds Neurological: Denies: Numbness, Tingling, Focal weakness Psychiatric: Denies: Anxiety, Depression, Homicidal Ideations, Suicidal Ideations Hematologic/ Lymphatic: Denies: Easy Bruising, Easy Bleeding Patient Problems: Active and Suspected Problems (Last Reviewed 12/06/18 @ 14:08 by Renee Byrd) SBO (small bowel obstruction) (Acute) - Physical Exam General: Alert, Oriented x3, Cooperative HEENT: Atraumatic, PERRLA, EOMI, Normocephalic Neck: Supple, No JVD, Negative Carotid Bruits Lungs: Clear to auscultation, Normal air movement Cardiovascular: Regular rate, No murmurs Abdomen: Bowel Sounds Not Present, Distended, Obese, Tender - generalized Extremities: No edema, Capillary Refill Less than 3 Seconds Skin: No rashes, No breakdown, - - Long previous incision midline of abdomen Musculoskeletal: No Tenderness to Palpation of Joints or Extremities Neurological: Neuro grossly intact Psych/Mental Status: Normal Affect, Appropriate Vital Signs Temp Pulse Resp BP Pulse Ox 98.5 F 77 18 135/85 H 96 04/12/19 06:55 04/12/19 06:55 04/12/19 06:55 04/12/19 06:55 04/12/19 07:44 Oxygen Delivery Method Room Air Weight: 303 lb 4 oz Body Mass Index (BMI) 35.9 Intake and Output for Last 24 Hours 04/10/19 04/11/19 04/12/19 23:59 23:59 23:59 Intake Total 125 / 125 Output Total 700 / 700 Balance -575 / -575 Laboratory Tests Past 24 Hrs 04/12/19 04/12/19 04/12/19 03:15 03:15 03:15 WBC 4.9 RBC 5.85 Hgb 17.6 H Hct 50.8 MCV 86.8 MCH 30.1 MCHC 34.6 RDW 13.9 RDW Differential 44.4 H Plt Count 180 MPV 9.5 Immature Gran % (Auto) 0.000 Neut % (Auto) 55.9 Lymph % (Auto) 19.9 [place] % (Auto) 20.5 H Eos % (Auto) 3.3 Baso % (Auto) 0.4 Absolute Neuts (auto) 2.8 Absolute Lymphs (auto) 0.98 Total Counted Not Reportable PT 13.3 INR 1.0 APTT 29.3 Sodium 140 Potassium 3.5 Chloride 104 Carbon Dioxide 24.0 Anion Gap 12 BUN 7 Creatinine 1.09 Est GFR (MDRD) Af Amer 95 Est GFR (MDRD) Non-Af 78 BUN/Creatinine Ratio 6.4 L Glucose 103 Lactic Acid Calcium 8.6 Total Bilirubin 0.90 AST 26 ALT 33 Alkaline Phosphatase 64 Total Protein 7.8 Albumin 3.4 Globulin 4.4 H Albumin/Globulin Ratio 0.8 L 04/12/19 05:00 WBC RBC Hgb Hct MCV MCH MCHC RDW RDW Differential Plt Count MPV Immature Gran % (Auto) Neut % (Auto) Lymph % (Auto) [place] % (Auto) Eos % (Auto) Baso % (Auto) Absolute Neuts (auto) Absolute Lymphs (auto) Total Counted PT INR APTT Sodium Potassium Chloride Carbon Dioxide Anion Gap BUN Creatinine Est GFR (MDRD) Af Amer Est GFR (MDRD) Non-Af BUN/Creatinine Ratio Glucose Lactic Acid 0.8 Calcium Total Bilirubin AST ALT Alkaline Phosphatase Total Protein Albumin Globulin Albumin/Globulin Ratio Assessment/Plan All Active Problems (Last Reviewed 12/06/18 @ 14:08 by Renee Byrd) SBO (small bowel obstruction) (Acute) I have been consulted in conjunction with Dr. Horn. Impression: Partial small bowel obstruction with transitional point in the right lower quadrant. Plan: Patient was discussed with Dr. Horn, who has also independently evaluated this patient in the ED. Recommend NG tube placement to control nausea and vomiting and decompress abdomen. Flush NG tube every 4 hours. IV hydration. IV pain/anti-emetics PRN. Consult cardiology for cardiac clearance for possible urgent diagnostic laparoscopy. EKG ordered. Patient has had the opportunity to ask and have questions answered. Patient is aware that surgery times may vary depending on his progression of symptoms. Patient verbally understands and agrees with the plan. Thank you for allowing us to participate in this patient's care. Code Visit Office Visits / Consults: [id number] IP Consult L3
[2019-04-12] MEDS: LORazepam 2 MG/ML Syringe 0.5 MG IV (10:36)
--- NOTE | 2019-04-12 11:15 | CASEMGMT ---
RN SUNITHA Face to Face with patient for initial transition planning/care coordination assessment. RN CM introduced self and role at [facility]. Patient lying in bed, alert and oriented, family at bedside. Patient willing to participate in assessment and is able to answer all questions appropriately. Care providers, pharmacy, and demographics verified. Patient wishes to discharge home, denies need for home health at this time. Patient states he has no further needs or concerns at this time. CM to follow for discharge planning needs that may arise. 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 No previous HHC Disposition Plan: Patient to discharge home with family support and follow-up plans in place. Sara HOFFMAN, RN, CM
[2019-04-12 11:27] LABS: Potassium 3.9 mmol/L (3.5-5.1)
[2019-04-12] MEDS: 0.9% Normal Saline 1,000 ML 500 ML IV (11:44)
--- NOTE | 2019-04-12 16:59 | NURSING ---
consulting intern will be here to place PICC between 1930 and 2029.
--- NOTE | 2019-04-12 17:40 | NURSING ---
pt has not urinated since 600 cc output hours ago. Pt does not feel it necessary to be bladder scanned at this time. Per pt, there is urine in there but he is like a camel and goes a long time before he goes. Will continue to monitor
--- NOTE | 2019-04-12 17:47 | PCM.CONS.C ---
Problem List (1) Paroxysmal atrial fibrillation Status: Chronic (2) Hyperlipidemia Status: Chronic Qualifiers: Hyperlipidemia type: unspecified (3) Essential hypertension Status: Chronic (4) SBO (small bowel obstruction) Status: Acute (5) Preop cardiovascular exam Status: Acute Reason for Consult Date of Consultation: 04/12/19 History of Present Illness: The patient is a 43 year old white male with a past cardiovascular history which is included paroxysmal atrial fibrillation superimposed upon concerns of hyperlipidemia and hypertension who presents for evaluation in the perioperative setting for small bowel obstruction. At the present time from a cardiac standpoint he denies any ongoing cardiovascular symptoms with respect to his history of atrial fibrillation such as palpitations or rapid rates. He has had no near syncope or syncope. He has had no ongoing concerning chest discomfort or difficulty breathing. His main concern has been recent abdominal discomfort. He was in [place], [place], and subsequently evaluated at [facility] [place] in [place], [place]. He was hospitalized for concerns of a small bowel obstruction. He was subsequently released home. However based on ongoing symptoms he presented back to [facility] for further evaluation care. He is currently in the medical surgical unit undergoing evaluation care for small bowel obstruction. He has been receiving analgesic therapy. He does have an NG tube in place. He is being considered for general surgery for adhesion release. He did have an ECG today. He was noted to be in sinus rhythm. He had no acute ECG changes. [] Past Medical History Allergies/Adverse Reactions: Allergies MUSHROOMS Adverse Reaction (Uncoded 12/06/18 14:06) Other Home Medications: Ambulatory Orders Medication Instructions Recorded aspirin 81 mg tablet,delayed 81 mg PO QDAY 11/19/17 release cholecalciferol (vitamin D3) 2,000 2,000 unit PO QDAY cap 11/19/17 unit capsule vitamin B complex and vit C no.3 1 cap PO QDAY 11/19/17 15 mg-10 mg-50 mg-5 mg-300 mg capsule vitamin E (dl, acetate) 1,000 unit 1,000 unit PO QDAY 11/19/17 capsule bupropion HCl XL 300 mg 24 hr 300 mg PO QAM 11/23/17 tablet, extended release rosuvastatin 20 mg tablet 20 mg PO QDAY #30 tab 05/24/18 diltiazem CD 120 mg 120 mg PO DAILY #30 cap 09/15/18 capsule,extended release 24 hr flecainide 100 mg tablet 300 mg PO ONCE PRN #30 tab 09/22/18 Past Medical History (Chronic Problems): Chronic Problems (Last Reviewed 04/12/19 @ 11:15 by Katy Elizondo PA-C) Essential hypertension (Chronic) Paroxysmal atrial fibrillation (Chronic) Hyperlipidemia (Chronic) GERD (gastroesophageal reflux disease) (Chronic) IBS (irritable bowel syndrome) (Chronic) Surgical History: - - History of carcinoid tumor/appendix removal, R crissy-colectomy following ruptured peritonitis. Psychiatric History: No pertinent psych hx - *Family History Maternal Family History: Family History (Last Reviewed 04/12/19 @ 11:16 by Katy Elizondo PA-C) Sister Hypertension History Items: Heart Disease - History of rheumatic heart disease in mother., - - History of cerebellar ataxia in his mother. Paternal Family History: Family History (Last Reviewed 04/12/19 @ 11:16 by Katy Elizondo PA-C) Sister Hypertension History Items: - - Patient notes that his father is healthy, no medical issues including HD, DM, cancer. Lives: Spouse/ Significant Other, With Family Smoking Status: Never smoker Tobacco Use: Non-smoker Alcohol: Occasional Drugs: None Review of Systems - Review of Systems General: Denies: Fever, Night Sweats, Fatigue Cardiovascular: Denies: Chest Discomfort, Shortness of Breath, Orthopnea, PND, Peripheral Edema, Palpitations, Lightheadedness, Dizziness, Near Syncope, Syncope Respiratory: Denies: Cough, Sputum Production, Hemoptysis Gastrointestinal: Reports: Abdominal Discomfort. Denies: Hematemesis, Hematochezia, Melena Genitourinary: Denies: Dysuria, Hematuria Skin: Denies: Rash Subjectve: This is a 43-year-old white male who appears to be resting reasonably comfortably at the moment and in no acute cardiovascular distress. Objective: Vital Signs Temp Pulse Resp BP Pulse Ox 97.6 F L 84 18 137/95 H 96 04/12/19 15:30 04/12/19 15:30 04/12/19 15:30 04/12/19 15:30 04/12/19 15:30 Oxygen Flow Rate (L/min) 3 Oxygen Delivery Method Nasal Cannula Weight: 303 lb 4.004 oz Body Mass Index (BMI) 35.9 Intake and Output for Last 24 Hours 04/10/19 04/11/19 04/12/19 23:59 23:59 23:59 Intake Total 2757 / 2757 Output Total 2950 / 2950 Balance -193 / -193 General: Awake, Alert, Oriented x 3, Cooperative, No Acute Distress HEENT: Atraumatic, Normocephalic, PERRL, EOMI, Sclera Non Icteric Oral: Moist Mucosa Neck: Supple, Good ROM, No JVD Lungs: Clear to auscultation Cardiovascular: Regular Rhythm, Normal S1, Normal S2 Vascular: No Carotid Bruits Abdomen: Hypoactive Bowel Sounds, Distended Extremities: No Cyanosis, No Clubbing, No edema Neurological: No Focal Motor or Sensory Deficit Psych/Mental Status: Appropriate 04/12/19 03:15: Sodium 140, Potassium 3.5, Chloride 104, Carbon Dioxide 24.0, Anion Gap 12, BUN 7, Creatinine 1.09, Est GFR (MDRD) Af Amer 95, Est GFR (MDRD) Non-Af 78, BUN/Creatinine Ratio 6.4 L, Glucose 103, Calcium 8.6, Total Bilirubin 0.90 04/12/19 03:15: WBC 4.9, RBC 5.85, Hgb 17.6 H, Hct 50.8, MCV 86.8, MCH 30.1, MCHC 34.6, RDW 13.9, RDW Differential 44.4 H, Plt Count 180, MPV 9.5, Immature Gran % (Auto) 0.000, Neut % (Auto) 55.9, Lymph % (Auto) 19.9, [place] % (Auto) 20.5 H, Eos % (Auto) 3.3, Baso % (Auto) 0.4, Absolute Neuts (auto) 2.8, Total Counted Not Reportable 04/12/19 03:15: PT 13.3, INR 1.0, APTT 29.3 04/12/19 05:00: Lactic Acid 0.8 04/12/19 11:14: Potassium 3.9 Rhythm: Sinus rhythm EKG: Sinus rhythm; no acute ECG changes ECHO: 12-13-18 Left ventricle normal with an LVEF 60%; borderline to mildly enlarged left atrium; mild MR; trivial TR; estimated RV systolic pressure of 25 mmHg; no evidence of diastolic dysfunction Stress Test: 02-26-14 EXERCISE MYOCARDIAL PERFUSION STRESS TEST REASON FOR EVALUATION: Evaluation of atrial fibrillation in a 38-year-old. BASELINE INFORMATION: Demonstrated a normal sinus rhythm with a rate of 69 beats per minute. Normal intervals are noted. STRESS TEST: The patient exercised according to the regular Gus protocol for a total duration of 10 minutes and 15 seconds. He completed 1 minute and 15 seconds into stage IV of the Gus protocol. The maximum heart rate attained was 150 beats per minute, which was 83% of maximum predicted heart rate. The maximum workload attained was 12.1 METS. No clinical angina was noted. No atrial fibrillation was noted. At rest, there were no ST or T-wave changes noted to suggest ischemia. At peak exercise, there was approximately 1.1 mm of horizontal to mildly upsloping ST depression noted in V5 and V6 and 1.2 mm of horizontal to mildly upsloping ST depression in leads II, III, and aVF. These rapidly became upsloping during recovery. The resting blood pressure was 128/84 with a peak blood pressure of 140/88. Rate pressure product was 19,400. No clinical angina was noted. No arrhythmias were noted. MYOCARDIAL PERFUSION PROTOCOL: 14.9 mCi of Sestamibi was injected at rest. The patient exercised according to the regular Gus protocol for 10 minutes and 15 seconds attaining 83% of maximum predicted heart rate and a workload of 12.1 METS. At peak exercise, 44.9 mCi of Sestamibi was injected. Stress images were obtained. Stress and resting images were reconstructed and compared in the short axis, vertical long, and horizontal long axes. Gated images were also obtained. PERFUSION SPECT ANALYSIS: Review of the images demonstrated normal uptake of tracer noted in all areas of the myocardium on the stress and resting images with no areas of reversibility noted to suggest ischemia. Normal perfusion is noted in all areas. GATED SPECT ANALYSIS: The gated ejection fraction is noted to be 58% with no evidence of ischemia present. CONCLUSION 1. Normal exercise myocardial perfusion scan at a high workload. 2. Preserved ejection fraction. 3. Excellent functional work capacity. 4. No atrial fibrillation noted. 5. No clinical angina present. Assessment/Plan 1. Paroxysmal atrial fibrillation The present time he appears to be remaining in sinus rhythm. He will continue to be monitored as deemed appropriate. This would include cardiac telemetry monitoring in the perioperative timeframe to evaluate for any obvious recurrence of his atrial dysrhythmia. If his atrial dysrhythmia returns then he will need appropriate medical therapy such as rate control, antiarrhythmic therapy, anticoagulant therapy, all as he is able to receive at that time. 2. Hyperlipidemia He will continue risk factor evaluation care as deemed appropriate. 3. Hypertension His blood pressure will be followed. His medications can be adjusted as needed. 4. Small bowel obstruction He will continue evaluation care per internal medicine and general surgery. 5. Preoperative cardiovascular assessment At the present time it was not felt he required additional cardiac diagnostic studies or therapeutic intervention prior to an upcoming general surgical procedure. He will have monitoring of his heart rate, rhythm, and blood pressure during and following his surgical procedure. An attempt should be made to avoid significant fluctuations in his vital signs as well as his volume status during and after his surgical procedure. If he does have recurrence of his atrial dysrhythmia than he will need further evaluation care as noted above at that time. The above information has been communicated to Drs. Akbar and Karla Horn. This note was generated using a voice recognition system and there may be incorrect words, spelling or punctuation that were not noted when reviewing the office note prior to saving.
--- NOTE | 2019-04-12 19:30 | PCM.HOSP.N ---
Hospitalist Note Patient was seen and examined briefly today, his family was in the room when I talked with him. Patient refused K riders today due to venous irritation from the infusion, I initially asked him if he would consent to a PICC line or midline, initially he said no but then later on consented to having one placed. I talked with general surgery about his care, they were initially concerned that he refused K riders but I informed them that he has agreed to a PICC line today. I also talked briefly with cardiology about his care, I would feel better if the patient was on telemetry and cardiology does not disagree with this. General surgery stated that they would reevaluate the patient early this evening, patient is aware that he may have to go to surgery. He would prefer not to go to another hospital if he requires surgery, he wants to stay here.
--- NOTE | 2019-04-12 19:31 | CPS ---
set up pt home cpap with distilled water
[2019-04-12] MEDS: 0.9% NaCl Peripheral Flush Adult/Peds IV ×3 (20:48→23:05)
--- NOTE | 2019-04-12 21:15 | NURSING ---
it architecture consultant here to insert PICC line
[2019-04-12] MEDS: Potassium Chloride 10mEq/100mL 10 MEQ/100 ML IV.SOLN. 100 MEQ IV BOLUS (22:46)
[2019-04-13] VITALS (16 sets, daily range): BP systolic 105–141; BP diastolic 74–90; PULSE 67–98; RESP 16–20; TEMP 36.4–37.3; O2SAT 92–98; BMI 35.8
[2019-04-13] MEDS: Potassium Chloride 10mEq/100mL 10 MEQ/100 ML IV.SOLN. 100 MEQ IV BOLUS ×3 (00:07→02:05)
[2019-04-13] MEDS: HYDROmorphone 1 MG/ML Syringe IV ×4 (03:39→23:59)
[2019-04-13] MEDS: 0.9% NaCl Peripheral Flush Adult/Peds IV ×8 (03:39→23:59)
[2019-04-13] MEDS: proMETHazine 25 MG/ML Syringe 12.5 MG IV ×3 (03:39→23:59)
--- NOTE | 2019-04-13 06:07 | PCM.PN.SRG ---
Patient Problems: Active and Suspected Problems (Last Reviewed 04/12/19 @ 11:15 by Katy Elizondo PA-C) SBO (small bowel obstruction) (Acute) Preop cardiovascular exam (Acute) Subjective: Pt had one episode of diarrhea Still c/o pain 01/25 requiring dilaudid NGT is still significant volume PICC line placed last night - Physical Exam General: Alert, Cooperative, No apparent distress Abdomen: Bowel Sounds Not Present, Distended, - - minimal diffuse tenderness Extremities: No Calf Tenderness Vital Signs Temp Pulse Resp BP Pulse Ox 98.4 F 72 16 132/80 H 98 04/13/19 03:00 04/13/19 03:59 04/13/19 03:00 04/13/19 03:00 04/13/19 03:00 Oxygen Flow Rate (L/min) 3 Oxygen Delivery Method Nasal Cannula Weight: 303 lb 4.004 oz Body Mass Index (BMI) 35.9 Intake and Output for Last 24 Hours 04/11/19 04/12/19 04/13/19 23:59 23:59 23:59 Intake Total 2882 / 2882 2404 / 2404 Output Total 2950 / 2950 1525 / 1525 Balance -68 / -68 879 / 879 Laboratory Tests Past 24 Hrs 04/12/19 11:14 Potassium 3.9 Medical Necessity - Tobacco Use Smoking Status: Never smoker Tobacco Use: Non-smoker Assessment/Plan All Active Problems (Last Reviewed 04/12/19 @ 11:15 by Katy Elizondo PA-C) SBO (small bowel obstruction) (Acute) Preop cardiovascular exam (Acute) Discussion with pt re: options I believe he has failed non operative management Propose laparoscopy for inspection but I fully anticipate laparotomy Pt is aware of technique, benefit, risks, complications, alternatives Labs pending Will add on to surgery later today
[2019-04-13 06:25] LABS: Absolute Lymphocyte Count 1.24 X10^3/ul (0.83-4.51); Absolute Neutrophil Count 2.7 X10^3/uL (2.0-7.7); Basophil# 0.03 X10^3/uL; Basophil% 0.6 % (0-1); Eosinophil# 0.15 X10^3/uL; Eosinophils% 2.8 % (0-5); Hematocrit 45.9 % (40-54); Hemoglobin 15.5 g/dl (13.0-16.5); Lymphocyte # 1.24 X10^3/ul (4.0); Lymphocyte % 23.1 % (19-41); Mean Corp Hgb Conc 33.8 g/gl (32-36); Mean Corpuscular Hgb 30.2 pg (27.0-32.0); Mean Corpuscular Volume 89.3 fL (80-94); Mean Platelet Vol. 9.7 fl (6.2-12.0); Monocyte# 1.23 X10^3/uL; Monocyte% 22.9 % (0-10); Neutrophil # 2.71 X10^3/uL (2.7-7.7); Neutrophil % 50.4 % (47-70); Platelet Count 175 K/mm3 (150-450); RBC Distribution Width CV 13.5 % (11.6-14.6); RBC Distribution Width SD 44.4 fl (35.1-43.9); Red Blood Count 5.14 M/mm3 (4.6-6.2); White Blood Count 5.4 K/mm3 (4.4-11.0)
[2019-04-13 06:30] LABS: Anion Gap 8 (5-15); BUN 7 mg/dL (7-18); BUN/Creat Ratio 6.7 RATIO (10-20); Calcium,Total 7.9 mg/dL (8.5-10.1); Chloride 106 mmol/L (98-107); Creatinine, Serum 1.05 mg/dL (0.70-1.30); EST Glomerular Filtration Rate 81 mL/min (>60); Est Glom Filt Rate - Afr Amer 98 mL/min (>60); Estimated Creatinine Clearance 111.96 ml/min; Glucose 99 mg/dL (74-106); Magnesium 2.1 mg/dL (1.6-2.6); Sodium Level 140 mmol/L (136-145)
[2019-04-13 06:43] LABS: POSITIVE COUNT NO; POSITIVE DIFFERENTIAL NO; POSITIVE MORPHOLOGY NO
--- NOTE | 2019-04-13 09:53 | PCM.PN.CARD ---
Subjectve: The patient is more awake and alert today. He states his abdomen feels less distended and less painful. He has had no other concerning symptoms of palpitations, chest discomfort, or difficulty breathing. Objective: Vital Signs Temp Pulse Resp BP Pulse Ox 99.1 F 82 18 140/87 H 96 04/13/19 07:49 04/13/19 07:49 04/13/19 07:49 04/13/19 07:49 04/13/19 07:49 Oxygen Flow Rate (L/min) 3 Oxygen Delivery Method Nasal Cannula Weight: 303 lb 4.004 oz Body Mass Index (BMI) 35.9 Intake and Output for Last 24 Hours 04/11/19 04/12/19 04/13/19 23:59 23:59 23:59 Intake Total 2882 / 2882 2404 / 2404 Output Total 2950 / 2950 1525 / 1525 Balance -68 / -68 879 / 879 General: Awake, Alert, Oriented x 3, Cooperative, No Acute Distress HEENT: Atraumatic, Normocephalic, PERRL, EOMI, Sclera Non Icteric Oral: Moist Mucosa Neck: Supple, Good ROM, No JVD Lungs: Clear to auscultation Cardiovascular: Regular Rhythm, Normal S1, Normal S2 Abdomen: Hypoactive Bowel Sounds Extremities: No edema Neurological: No Focal Motor or Sensory Deficit Psych/Mental Status: Appropriate 04/12/19 11:14: Potassium 3.9 04/13/19 06:00: WBC 5.4, RBC 5.14, Hgb 15.5, Hct 45.9, MCV 89.3, MCH 30.2, MCHC 33.8, RDW 13.5, RDW Differential 44.4 H, Plt Count 175, MPV 9.7, Immature Gran % (Auto) 0.200, Neut % (Auto) 50.4, Lymph % (Auto) 23.1, [place] % (Auto) 22.9 H, Eos % (Auto) 2.8, Baso % (Auto) 0.6, Absolute Neuts (auto) 2.7, Total Counted Not Reportable 04/13/19 06:00: Sodium 140, Potassium 4.0, Chloride 106, Carbon Dioxide 26.0, Anion Gap 8, BUN 7, Creatinine 1.05, Est GFR (MDRD) Af Amer 98, Est GFR (MDRD) Non-Af 81, BUN/Creatinine Ratio 6.7 L, Glucose 99, Calcium 7.9 L, Magnesium 2.1 Rhythm: Sinus rhythm Medical Necessity - Tobacco Use Smoking Status: Never smoker Tobacco Use: Non-smoker Assessment/Plan 1. Paroxysmal atrial fibrillation The present time he appears to be remaining in sinus rhythm. 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 If his atrial dysrhythmia returns then he will need appropriate medical therapy such as rate control, antiarrhythmic therapy, anticoagulant therapy, all as he is able to receive at that time. 2. Hyperlipidemia He will continue risk factor evaluation care as deemed appropriate. 3. Hypertension His blood pressure will be followed. His medications can be adjusted as needed. 4. Small bowel obstruction He will continue evaluation care per internal medicine and general surgery. He is tentatively scheduled for general surgery this afternoon. 5. Preoperative cardiovascular assessment At the present time it was not felt he required additional cardiac diagnostic studies or therapeutic intervention prior to an upcoming general surgical procedure. He will have monitoring of his heart rate, rhythm, and blood pressure during and following his surgical procedure. An attempt should be made to avoid significant fluctuations in his vital signs as well as his volume status during and after his surgical procedure. If he does have recurrence of his atrial dysrhythmia than he will need further evaluation care as noted above at that time. This note was generated using a voice recognition system and there may be incorrect words, spelling or punctuation that were not noted when reviewing the office note prior to saving.
[2019-04-13] MEDS: Ondansetron 4 MG/2 ML Vial IV (12:45)
--- NOTE | 2019-04-13 16:40 | PN_ITS ---
Patient Problems: Active and Suspected Problems (Last Reviewed 04/12/19 @ 11:15 by Katy Elizondo PA-C) SBO (small bowel obstruction) (Acute) Preop cardiovascular exam (Acute) Subjective: Bre today, he is going to be taken to surgery for planned lysis of adhesions and treatment of small bowel obstruction. Patient has no complaints of any chest pain or shortness of breath today. Patient's white blood cell count remains normal, potassium was 4 today. - Physical Exam General: Alert, Oriented x3, Cooperative, No apparent distress, Well developed, Well nourished HEENT: Atraumatic, PERRLA, EOMI, Normocephalic Oral: Moist Mucosa Neck: Supple, Trachea Midline, Thyroid Normal Size and Texture Lungs: Clear to auscultation, Normal air movement, No rhonchi, No wheeze, No rales, Diminished, Rales Cardiovascular: Regular rate, Regular Rhythm, Normal S1, Normal S2, No murmurs, No Ectopic Activity Abdomen: Hypoactive Bowel Sounds, Distended Extremities: No edema, Capillary Refill Less than 3 Seconds Skin: No rashes, No breakdown Musculoskeletal: No Tenderness to Palpation of Joints or Extremities Neurological: Cranial nerves II-XII grossly intact, Neuro grossly intact, Sensory exam intact to light touch and pain, Coordination normal Psych/Mental Status: Normal Affect, Appropriate, Alert and oriented to time, place, person, mood and affect Vital Signs Temp Pulse Resp BP Pulse Ox 98.7 F 94 18 141/90 H 95 04/13/19 12:03 04/13/19 12:03 04/13/19 12:03 04/13/19 12:03 04/13/19 12:03 Oxygen Flow Rate (L/min) 3 Oxygen Delivery Method Nasal Cannula Weight: 137.55 kg Body Mass Index (BMI) 35.8 Intake and Output for Last 24 Hours 04/11/19 04/12/19 04/13/19 23:59 23:59 23:59 Intake Total 2882 / 2882 2404 / 2404 Output Total 2950 / 2950 1525 / 1525 Balance -68 / -68 879 / 879 Laboratory Tests Past 24 Hrs 04/13/19 04/13/19 06:00 06:00 WBC 5.4 RBC 5.14 Hgb 15.5 Hct 45.9 MCV 89.3 MCH 30.2 MCHC 33.8 RDW 13.5 RDW Differential 44.4 H Plt Count 175 MPV 9.7 Immature Gran % (Auto) 0.200 Neut % (Auto) 50.4 Lymph % (Auto) 23.1 [place] % (Auto) 22.9 H Eos % (Auto) 2.8 Baso % (Auto) 0.6 Absolute Neuts (auto) 2.7 Absolute Lymphs (auto) 1.24 Total Counted Not Reportable Sodium 140 Potassium 4.0 Chloride 106 Carbon Dioxide 26.0 Anion Gap 8 BUN 7 Creatinine 1.05 Estim Creat Clear Calc 111.96 Est GFR (MDRD) Af Amer 98 Est GFR (MDRD) Non-Af 81 BUN/Creatinine Ratio 6.7 L Glucose 99 Calcium 7.9 L Magnesium 2.1 Medical Necessity - Tobacco Use Smoking Status: Never smoker Tobacco Use: Non-smoker Assessment/Plan All Active Problems (Last Reviewed 04/12/19 @ 11:15 by Katy Elizondo PA-C) SBO (small bowel obstruction) (Acute) Preop cardiovascular exam (Acute) #1 small bowel obstruction-probably secondary to adhesions, again patient will go to surgery today #2 paroxysmal atrial fibrillation-presently in sinus #3 essential hypertension #4 hyperlipidemia Code Visit Inpatient E&M: 56446 Subs Hosp L2
[2019-04-13] MEDS: BUPIVACAINE LIPOSOME/PF 20 ML VIAL OPERA.SITE (17:45)
[2019-04-13] MEDS: Bupivacaine 0.25% 30 ML Vial (17:45)
--- NOTE | 2019-04-13 18:07 | OP.PCM_ITS ---
Problem List (1) SBO (small bowel obstruction) Status: Acute Report of Operation Date of Procedure: 04/13/19 Pre-Operative Diagnosis: Persistent non-resolving small bowel obstruction Post-Operative Diagnosis: Extensive intra-abdominal adhesions with suspected adhesive small bowel obstruction Surgery/Procedure Performed:: Laparoscopy with conversion to hand-assisted laparoscopy with lysis of adhesions with conversion to laparotomy with extensive lysis of adhesions and mobilization of bowel with release of small bowel obstruction Description of Surgical Findings:: Timeout informed consent was obtained. 43-year-old gentleman taken out from placement table underwent general endotracheal intubation anesthesia. Cefotetan 2 g given intravenous preoperatively the M sterilely prepped draped. Ioban draping was used left upper quadrant I initially attempted to place a 5 under Visiport but could not get clean access so I then made a transverse incision sharp dissection carried down through subcu tissue and direct access was gained through the peritoneum. And is on catheter was inserted. The abdomen was carefully inspected and there was no evidence of any bowel injury at that site. 500 trochars were placed in the right mid abdomen left mid abdomen in the epigastric area there were adhesions of omentum to the anterior abdominal wall these were sharply lysed the adhesions in the suprapubic pelvis which were sharply lysed and there were dense adhesions of omentum in the right lower quadrant. There were multiple loops of distended small bowel. No point was there evidence of nondistended small bowel. The sigmoid colon even was distended. I then after multiple attempts to try to identify potential source try to elevate the small bowel and it appeared to loop and was tightly adherent to the retroperitoneum at that point I converted and made a 7 cm suprapubic incision placed a hand port and tried to release it with a HandPort but again unfortunately the patient's body habitus and the dilatation of the bowel that was not possible so I had a convertible laparotomy. Dr. Copeland then assisted. The terminal fluid of the small bowel was densely adherent to the retroperitoneal intensity here to the right lower quadrant. Careful and tedious sharp and blunt dissection was used to gradually elevate the terminal ileum. A couple minimal serosal tears were secured with simple and running suture of 4-0 silk. There was absolutely no spillage. The end and ileocolonic anastomosis was identified this appeared to be widely patent. The transverse colon was palpated the descending and sigmoid colon palpated no focal masses could be palpated. All of that bowel was interestingly distended but the small bowel was more distended than the large bowel. There were adhesions to the retroperitoneum and adhesions in the right lower quadrant with kinking of the small bowel but there was not a huge caliber change to distinctly identify one focal area of the of definitive stenosis. There were certainly dense adhesions causing acute angulation of the bowel and these were completely released and the bowel was noted to be viable was completely inspected from the ligament of Treitz all the way down to the ileocolonic anastomosis. No injuries. The bowel was then placed back within the abdomen a fish device was used the midline wound was closed with running #1 Prolene. The left upper quadrant incision was closed with [id number] suture of 0 Vicryl using a GraNee needle and then the external oblique was closed with a running 0 Vicryl. Skin edges were approximated with interrupted or running septic or 4-0 Monocryl in addition the midline wound was closed with interrupted 3-0 Vicryl subdermal stitches. Steri-Strips Telfa ABDs OpSite and tape dressings applied. Sponge and instrument and needle counts reported surgical correct. Specimen none. Blood loss 100 cc. Drains none. It is of additional note during the laparoscopic part of the procedure a b ilateral tap block was performed. Exparel mixed with 60 cc of 0.25% Marcaine with addition of 50 cc of saline was used under direct laparoscopic visualization bilaterally injecting in the transversus/oblique plane. No local was injected directly at the incision site and within the subcutaneous tissues of the incisions. All of the local was utilized. Patient was taken to recovery area in satisfactory edition no apparent complications Jeffery Horn M.D., F.A.C.S. shipping coordinator: Autumn Copeland Type of Anesthesia:: General Anesthesiologist: Junito Dunbar
--- NOTE | 2019-04-13 19:43 | PN.CARD_ITS ---
Subjectve: The patient is now status post his surgical procedure and in the recovery room. He is awake and alert. He denies any acute cardiovascular complaints. His cardiac rhythm has remained sinus rhythm. Objective: Vital Signs Temp Pulse Resp BP Pulse Ox 97.6 F L 85 16 114/74 92 04/13/19 19:41 04/13/19 19:41 04/13/19 19:41 04/13/19 19:41 04/13/19 19:41 Oxygen Flow Rate (L/min) 4 Oxygen Delivery Method Nasal Cannula Weight: 303 lb 3.933 oz Body Mass Index (BMI) 35.8 Intake and Output for Last 24 Hours 04/11/19 04/12/19 04/13/19 23:59 23:59 23:59 Intake Total 2882 / 2882 4904 / 4904 Output Total 2950 / 2950 1525 / 1525 Balance -68 / -68 3379 / 3379 General: Awake, Alert, Oriented x 3, Cooperative, No Acute Distress Lungs: Clear to auscultation Cardiovascular: Regular Rhythm, Normal S1, Normal S2 Abdomen: Hypoactive Bowel Sounds Psych/Mental Status: Appropriate 04/13/19 06:00: WBC 5.4, RBC 5.14, Hgb 15.5, Hct 45.9, MCV 89.3, MCH 30.2, MCHC 33.8, RDW 13.5, RDW Differential 44.4 H, Plt Count 175, MPV 9.7, Immature Gran % (Auto) 0.200, Neut % (Auto) 50.4, Lymph % (Auto) 23.1, [place] % (Auto) 22.9 H, Eos % (Auto) 2.8, Baso % (Auto) 0.6, Absolute Neuts (auto) 2.7, Total Counted Not Reportable 04/13/19 06:00: Sodium 140, Potassium 4.0, Chloride 106, Carbon Dioxide 26.0, Anion Gap 8, BUN 7, Creatinine 1.05, Est GFR (MDRD) Af Amer 98, Est GFR (MDRD) Non-Af 81, BUN/Creatinine Ratio 6.7 L, Glucose 99, Calcium 7.9 L, Magnesium 2.1 Rhythm: Sinus rhythm Medical Necessity - Tobacco Use Smoking Status: Never smoker Tobacco Use: Non-smoker Assessment/Plan 1. Paroxysmal atrial fibrillation The present time he appears to be remaining in sinus rhythm. 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 If his atrial dysrhythmia returns then he will need appropriate medical therapy such as rate control, antiarrhythmic therapy, anticoagulant therapy, all as he is able to receive at that time. 2. Hyperlipidemia He will continue risk factor evaluation care as deemed appropriate. 3. Hypertension His blood pressure will be followed. His medications can be adjusted as needed. 4. Small bowel obstruction He is now status post a general surgical procedure. He will be recuperating under the care of internal medicine and general surgery. Thus far, with the surgical procedure, there is been no obvious adverse cardiovascular events. He will continue cardiovascular follow-up and monitoring as noted above. Comment: The patient's case was discussed and reviewed with the patient and Dr. Jeffery Horn. This note was generated using a voice recognition system and there may be incorrect words, spelling or punctuation that were not noted when reviewing the office note prior to saving.
[2019-04-14] VITALS (14 sets, daily range): BP systolic 108–144; BP diastolic 65–77; PULSE 72–96; RESP 16–18; TEMP 36.4–37.3; O2SAT 93–96
[2019-04-14] MEDS: 0.9% NaCl Peripheral Flush Adult/Peds IV ×12 (02:15→21:27)
[2019-04-14] MEDS: HYDROmorphone 1 MG/ML Syringe IV ×11 (02:16→23:27)
[2019-04-14] MEDS: Ondansetron 4 MG/2 ML Vial IV ×3 (03:46→23:32)
--- NOTE | 2019-04-14 04:44 | CPS ---
bled in 4 lpm O2 into pts CPAP circuit.
[2019-04-14] MEDS: proMETHazine 25 MG/ML Syringe 12.5 MG IV ×3 (05:38→21:26)
--- NOTE | 2019-04-14 05:47 | PN.SURG_ITS ---
Patient Problems: Active and Suspected Problems (Last Reviewed 04/12/19 @ 11:15 by Katy Elizondo PA-C) SBO (small bowel obstruction) (Acute) Preop cardiovascular exam (Acute) Subjective: Pt notes dry mouth--taking ice Some difficulty with urination Abdominal discomfort similar to preop - Physical Exam Lungs: Clear to auscultation Abdomen: Bowel Sounds Not Present, Distended Extremities: No Calf Tenderness Vital Signs Temp Pulse Resp BP Pulse Ox 97.8 F 89 16 116/77 93 04/14/19 04:36 04/14/19 04:36 04/14/19 04:36 04/14/19 04:36 04/14/19 04:36 Oxygen Flow Rate (L/min) 4 Oxygen Delivery Method Room Air Weight: 303 lb 3.933 oz Body Mass Index (BMI) 35.8 Intake and Output for Last 24 Hours 04/12/19 04/13/19 04/14/19 23:59 23:59 23:59 Intake Total 2882 / 2882 4904 / 5806 1027 / 1027 Output Total 2950 / 2950 1525 / 2450 925 / 925 Balance -68 / -68 3379 / 3356 102 / 102 Laboratory Tests Past 24 Hrs 04/13/19 04/13/19 06:00 06:00 WBC 5.4 RBC 5.14 Hgb 15.5 Hct 45.9 MCV 89.3 MCH 30.2 MCHC 33.8 RDW 13.5 RDW Differential 44.4 H Plt Count 175 MPV 9.7 Immature Gran % (Auto) 0.200 Neut % (Auto) 50.4 Lymph % (Auto) 23.1 [place] % (Auto) 22.9 H Eos % (Auto) 2.8 Baso % (Auto) 0.6 Absolute Neuts (auto) 2.7 Absolute Lymphs (auto) 1.24 Total Counted Not Reportable Sodium 140 Potassium 4.0 Chloride 106 Carbon Dioxide 26.0 Anion Gap 8 BUN 7 Creatinine 1.05 Estim Creat Clear Calc 111.96 Est GFR (MDRD) Af Amer 98 Est GFR (MDRD) Non-Af 81 BUN/Creatinine Ratio 6.7 L Glucose 99 Calcium 7.9 L Magnesium 2.1 Medical Necessity - Tobacco Use Smoking Status: Never smoker Tobacco Use: Non-smoker Assessment/Plan All Active Problems (Last Reviewed 04/12/19 @ 11:15 by Katy Elizondo PA-C) SBO (small bowel obstruction) (Acute) Preop cardiovascular exam (Acute) Pt has been mobilizing Will check bladder scan if symptoms persist Continue care Pt inquired about TPN but will hold off for now Mobilize and IS
[2019-04-14] MEDS: Enoxaparin 40 MG/0.4 ML Syringe SC (09:12)
[2019-04-14] MEDS: Alteplase 2 MG/2 ML Vial IV ×2 (10:02)
--- NOTE | 2019-04-14 10:03 | PN.CARD_ITS ---
Subjectve: The patient is awake and alert. He has been up and ambulating in the hallways. He denies any chest discomfort or difficulty breathing. He has had no obvious palpitations. Objective: Vital Signs Temp Pulse Resp BP Pulse Ox 97.5 F L 81 16 108/65 96 04/14/19 07:51 04/14/19 09:38 04/14/19 07:51 04/14/19 07:51 04/14/19 07:51 Oxygen Flow Rate (L/min) 4 Oxygen Delivery Method CPAP Weight: 303 lb 3.933 oz Body Mass Index (BMI) 35.8 Intake and Output for Last 24 Hours 04/12/19 04/13/19 04/14/19 23:59 23:59 23:59 Intake Total 2882 / 2882 4904 / 5806 1657 / 1657 Output Total 2950 / 2950 1525 / 2450 1125 / 1125 Balance -68 / -68 3379 / 3356 532 / 532 General: Awake, Alert, Oriented x 3, Cooperative, No Acute Distress HEENT: Atraumatic, Normocephalic, PERRL, EOMI, Sclera Non Icteric Oral: Moist Mucosa Neck: Supple, Good ROM, No JVD Lungs: Clear to auscultation Cardiovascular: Regular Rhythm, Normal S1, Normal S2 Abdomen: Hypoactive Bowel Sounds Extremities: No edema Neurological: No Focal Motor or Sensory Deficit Psych/Mental Status: Appropriate Rhythm: Sinus rhythm Medical Necessity - Tobacco Use Smoking Status: Never smoker Tobacco Use: Non-smoker Assessment/Plan 1. Paroxysmal atrial fibrillation The present time he appears to be remaining in sinus rhythm. He will continue cardiac surveillance system monitor post surgery. If his atrial dysrhythmia returns then he will need appropriate medical therapy such as rate control, antiarrhythmic therapy, anticoagulant therapy, all as he is able to receive at that time. 2. Hyperlipidemia He will continue risk factor evaluation care as deemed appropriate. 3. Hypertension His blood pressure will be followed. His medications can be adjusted as needed. 4. Small bowel obstruction He is now status post a general surgical procedure. He has been up and ambulating in the hallway. Thus far there is been no obvious postoperative adverse cardiovascular events. Comment: The patient's case was discussed and reviewed with the patient and his spouse. This note was generated using a voice recognition system and there may be incorrect words, spelling or punctuation that were not noted when reviewing the office note prior to saving.
[2019-04-14 11:18] LABS: Anion Gap 4 (5-15); BUN 11 mg/dL (7-18); Calcium,Total 8.2 mg/dL (8.5-10.1); Chloride 107 mmol/L (98-107); Creatinine, Serum 1.22 mg/dL (0.70-1.30); EST Glomerular Filtration Rate 68 mL/min (>60); Est Glom Filt Rate - Afr Amer 82 mL/min (>60); Estimated Creatinine Clearance 96.36 ml/min; Glucose 87 mg/dL (74-106); Sodium Level 138 mmol/L (136-145)
[2019-04-14 11:46] LABS: Hematocrit 46.5 % (40-54); Hemoglobin 15.8 g/dl (13.0-16.5); Mean Corpuscular Hgb 30.3 pg (27.0-32.0); Mean Corpuscular Volume 89.3 fL (80-94); Mean Platelet Vol. 9.4 fl (6.2-12.0); Platelet Count 231 K/mm3 (150-450); RBC Distribution Width CV 13.6 % (11.6-14.6); RBC Distribution Width SD 44.4 fl (35.1-43.9); Red Blood Count 5.21 M/mm3 (4.6-6.2); Scan Indicated on CBC? Y/N NO; White Blood Count 10.1 K/mm3 (4.4-11.0)
[2019-04-14] MEDS: LORazepam 2 MG/ML Syringe 0.5 MG IV (13:00)
--- NOTE | 2019-04-14 17:39 | PCM.PN.BLA ---
Progress Note Rectus muscular spasm Urinary retention requiring st. cath 1400cc Taking dilaudid regularly now Dose of ativan as well Continue care Flomax. Encouraged
[2019-04-14] MEDS: Tamsulosin HCl 0.4 MG Capsule PO (18:07)
--- NOTE | 2019-04-14 18:28 | PCM.PROGNOTE ---
Patient Problems: Active and Suspected Problems (Last Reviewed 04/12/19 @ 11:15 by Katy Elizondo PA-C) SBO (small bowel obstruction) (Acute) Preop cardiovascular exam (Acute) Subjective: Patient was seen and examined today, he had some urinary retention today and had to be straight cathed x1. Patient is alert and he states he has been getting up and walking around. He has no complaint of excessive abdominal pain. - Physical Exam General: Alert, Oriented x3, Cooperative, No apparent distress, Well developed HEENT: Atraumatic, PERRLA, EOMI, Normocephalic Oral: Moist Mucosa Neck: Supple, Trachea Midline, Thyroid Normal Size and Texture Lungs: Clear to auscultation, Normal air movement, No rhonchi, No wheeze, No rales, Diminished, Rales Cardiovascular: Regular rate, Regular Rhythm, Normal S1, Normal S2, No murmurs, No Ectopic Activity Abdomen: Soft, - - Patient has mild abdominal distention with only sporadic bowel sounds. Extremities: No clubbing, No cyanosis, No edema, Capillary Refill Less than 3 Seconds Skin: No rashes, No breakdown Musculoskeletal: No Tenderness to Palpation of Joints or Extremities Neurological: Cranial nerves II-XII grossly intact, Neuro grossly intact, Sensory exam intact to light touch and pain, Coordination normal Psych/Mental Status: Normal Affect, Appropriate, Alert and oriented to time, place, person, mood and affect Vital Signs Temp Pulse Resp BP Pulse Ox 97.7 F L 78 18 119/69 96 04/14/19 15:09 04/14/19 16:42 04/14/19 15:09 04/14/19 15:09 04/14/19 15:21 Oxygen Flow Rate (L/min) 4 Oxygen Delivery Method CPAP Weight: 137.55 kg Body Mass Index (BMI) 35.8 Intake and Output for Last 24 Hours 04/12/19 04/13/19 04/14/19 23:59 23:59 23:59 Intake Total 2882 / 2882 4904 / 5806 2862 / 2862 Output Total 2950 / 2950 1525 / 2450 4175 / 4175 Balance -68 / -68 3379 / 3356 -1313 / -1313 Laboratory Tests Past 24 Hrs 04/14/19 04/14/19 04/14/19 10:50 10:50 11:30 WBC Cancelled 10.1 Corrected WBC Cancelled RBC Cancelled 5.21 Hgb Cancelled 15.8 Hct Cancelled 46.5 MCV Cancelled 89.3 MCH Cancelled 30.3 MCHC Cancelled 34.0 RDW Cancelled 13.6 RDW Differential Cancelled 44.4 H Plt Count Cancelled 231 MPV Cancelled 9.[address] Review Cancelled Sodium 138 Potassium 4.0 Chloride 107 Carbon Dioxide 27.0 Anion Gap 4 L BUN 11 Creatinine 1.22 Estim Creat Clear Calc 96.36 Est GFR (MDRD) Af Amer 82 Est GFR (MDRD) Non-Af 68 BUN/Creatinine Ratio 9.0 L Glucose 87 Calcium 8.2 L Medical Necessity - Tobacco Use Smoking Status: Never smoker Tobacco Use: Non-smoker Assessment/Plan All Active Problems (Last Reviewed 04/12/19 @ 11:15 by Katy Elizondo PA-C) SBO (small bowel obstruction) (Acute) Preop cardiovascular exam (Acute) #1 small bowel obstruction-probably secondary to adhesions, postop day #1 #2 paroxysmal atrial fibrillation-presently in sinus, continue to monitor for now, his care was discussed with cardiology #3 essential hypertension #4 hyperlipidemia Code Visit Inpatient E&M: 49748 Subs Hosp L2
[2019-04-15] VITALS (7 sets, daily range): BP systolic 141–146; BP diastolic 84–93; PULSE 75–98; RESP 18; TEMP 36.9–37.3; O2SAT 90–95
[2019-04-15] MEDS: HYDROmorphone 1 MG/ML Syringe IV ×8 (01:22→22:04)
[2019-04-15] MEDS: proMETHazine 25 MG/ML Syringe 12.5 MG IV ×3 (03:32→19:44)
[2019-04-15] MEDS: Ondansetron 4 MG/2 ML Vial IV ×3 (05:45→22:04)
[2019-04-15] MEDS: 0.9% NaCl Peripheral Flush Adult/Peds IV ×2 (05:50→11:52)
--- NOTE | 2019-04-15 06:23 | PCM.PN.SRG ---
Patient Problems: Active and Suspected Problems (Last Reviewed 04/12/19 @ 11:15 by Katy Elizondo PA-C) SBO (small bowel obstruction) (Acute) Preop cardiovascular exam (Acute) Subjective: More comfortable night but still voiding very small amounts and most recent bladder scan >500cc. Pt is not wanting a repeat st cath Pt requiring absolutely routine administration of dilaudid No flatus NGT output difficult to measure b/o amt of ice chip consumption Incentive spirometer up to 1900cc - Physical Exam General: Alert, - - comfortable Abdomen: Bowel Sounds Not Present, Distended, Tender Vital Signs Temp Pulse Resp BP Pulse Ox 99.2 F H 98 18 144/65 H 93 04/14/19 21:25 04/15/19 01:36 04/14/19 21:25 04/14/19 21:25 04/14/19 21:25 Oxygen Flow Rate (L/min) 4 Oxygen Delivery Method Room Air Weight: 303 lb 3.933 oz Body Mass Index (BMI) 35.8 Intake and Output for Last 24 Hours 04/13/19 04/14/19 04/15/19 23:59 23:59 23:59 Intake Total 4904 / 5806 3503 / 3503 Output Total 1525 / 2450 4685 / 4685 200 / 200 Balance 3379 / 3356 -1182 / -1182 -200 / -200 Laboratory Tests Past 24 Hrs 04/14/19 04/14/19 04/14/19 10:50 10:50 11:30 WBC Cancelled 10.1 Corrected WBC Cancelled RBC Cancelled 5.21 Hgb Cancelled 15.8 Hct Cancelled 46.5 MCV Cancelled 89.3 MCH Cancelled 30.3 MCHC Cancelled 34.0 RDW Cancelled 13.6 RDW Differential Cancelled 44.4 H Plt Count Cancelled 231 MPV Cancelled 9.[address] Review Cancelled Sodium 138 Potassium 4.0 Chloride 107 Carbon Dioxide 27.0 Anion Gap 4 L BUN 11 Creatinine 1.22 Estim Creat Clear Calc 96.36 Est GFR (MDRD) Af Amer 82 Est GFR (MDRD) Non-Af 68 BUN/Creatinine Ratio 9.0 L Glucose 87 Calcium 8.2 L Medical Necessity - Tobacco Use Smoking Status: Never smoker Tobacco Use: Non-smoker Assessment/Plan All Active Problems (Last Reviewed 04/12/19 @ 11:15 by Katy Elizondo PA-C) SBO (small bowel obstruction) (Acute) Preop cardiovascular exam (Acute) Difficult situation because pt has significant pain yesterday afternoon, likely rectus spasm, and is requiring narcotics which is likely complicating continued ileus and urinary retention Continue with mobilization and recommended to pt repeat st cath of bladder scan shows increased residuals Will check labs including Mg level Encouraged to moderate narcotics--prn toradol now offered Pt started on flomax yesterday as well Continue care
--- NOTE | 2019-04-15 06:43 | NURSING ---
charge nurse in this morning to draw pts labs, picc line is flushing but no blood return. last night nurse was able to flush and get blood return on line. [employer] shift supervisor in pts room to do cathflow.
[2019-04-15] MEDS: Alteplase 2 MG/2 ML Vial IV ×2 (06:44)
[2019-04-15] MEDS: Enoxaparin 40 MG/0.4 ML Syringe SC (09:12)
[2019-04-15 09:33] LABS: Absolute Lymphocyte Count 1.86 X10^3/ul (0.83-4.51); Absolute Neutrophil Count 5.9 X10^3/uL (2.0-7.7); Basophil# 0.07 X10^3/uL; Basophil% 0.7 % (0-1); Eosinophil# 0.23 X10^3/uL; Eosinophils% 2.4 % (0-5); Hemoglobin 14.5 g/dl (13.0-16.5); Lymphocyte # 1.86 X10^3/ul (4.0); Lymphocyte % 19.7 % (19-41); Mean Corp Hgb Conc 33.7 g/gl (32-36); Mean Corpuscular Hgb 30.1 pg (27.0-32.0); Mean Corpuscular Volume 89.4 fL (80-94); Monocyte# 1.31 X10^3/uL; Monocyte% 13.9 % (0-10); Neutrophil # 5.94 X10^3/uL (2.7-7.7); Platelet Count 207 K/mm3 (150-450); RBC Distribution Width CV 13.7 % (11.6-14.6); RBC Distribution Width SD 44.9 fl (35.1-43.9); Red Blood Count 4.81 M/mm3 (4.6-6.2); White Blood Count 9.4 K/mm3 (4.4-11.0)
[2019-04-15 09:35] LABS: Differential Indicated SCAN CRITERIA MET; POSITIVE COUNT NO; POSITIVE MORPHOLOGY YES
[2019-04-15 09:53] LABS: Anion Gap 10 (5-15); BUN 12 mg/dL (7-18); BUN/Creat Ratio 10.7 RATIO (10-20); Calcium,Total 8.2 mg/dL (8.5-10.1); Chloride 105 mmol/L (98-107); Creatinine, Serum 1.12 mg/dL (0.70-1.30); EST Glomerular Filtration Rate 75 mL/min (>60); Est Glom Filt Rate - Afr Amer 91 mL/min (>60); Estimated Creatinine Clearance 104.97 ml/min; Glucose 75 mg/dL (74-106); Potassium 3.8 mmol/L (3.5-5.1); Sodium Level 140 mmol/L (136-145)
[2019-04-15 10:22] LABS: Atypical Lymphocyte 1+ %
[2019-04-15] MEDS: Ketorolac 15 MG/ML Vial IV (11:05)
--- NOTE | 2019-04-15 12:49 | PN.CARD_ITS ---
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 He has been up and ambulating. He has denied any chest discomfort or difficulty breathing. He has denied any obvious palpitations. He is still had abdominal discomfort and is required nonsteroidal anti-inflammatory therapy as well as narcotic analgesic therapy. He is also been noted to have bladder retention and underwent straight cath for approximately 1400 cc. He continues with an NG tube in place. He is feeling better overall at this time. Objective: Vital Signs Temp Pulse Resp BP Pulse Ox 98.6 F 90 18 143/84 H 95 04/15/19 09:38 04/15/19 09:38 04/15/19 09:38 04/15/19 09:38 04/15/19 09:38 Oxygen Flow Rate (L/min) 2 Oxygen Delivery Method Nasal Cannula Weight: 303 lb 3.933 oz Body Mass Index (BMI) 35.8 Intake and Output for Last 24 Hours 04/13/19 04/14/19 04/15/19 23:59 23:59 23:59 Intake Total 4904 / 5806 3503 / 3503 1096 / 1096 Output Total 1525 / 2450 4685 / 4685 1250 / 1250 Balance 3379 / 3356 -1182 / -1182 -154 / -154 General: Awake, Alert, Oriented x 3, Cooperative, No Acute Distress HEENT: Atraumatic, Normocephalic, PERRL, EOMI, Sclera Non Icteric Oral: Moist Mucosa Neck: Supple, Good ROM, No JVD Lungs: Clear to auscultation Cardiovascular: Regular Rhythm, Normal S1, Normal S2 Abdomen: Hypoactive Bowel Sounds Extremities: No edema Neurological: No Focal Motor or Sensory Deficit Psych/Mental Status: Appropriate 04/15/19 09:04: WBC 9.4, RBC 4.81, Hgb 14.5, Hct 43.0, MCV 89.4, MCH 30.1, MCHC 33.7, RDW 13.7, RDW Differential 44.9 H, Plt Count 207, MPV 9.0, Immature Gran % (Auto) 0.300, Neut % (Auto) 63.0, Lymph % (Auto) 19.7, [place] % (Auto) 13.9 H, Eos % (Auto) 2.4, Baso % (Auto) 0.7, Absolute Neuts (auto) 5.9, Total Counted Not Reportable 04/15/19 09:04: Sodium 140, Potassium 3.8, Chloride 105, Carbon Dioxide 25.0, Anion Gap 10, BUN 12, Creatinine 1.12, Est GFR (MDRD) Af Amer 91, Est GFR (MDRD) Non-Af 75, BUN/Creatinine Ratio 10.7, Glucose 75, Calcium 8.2 L, Magnesium 2.0 Rhythm: Sinus rhythm Medical Necessity - Tobacco Use Smoking Status: Never smoker Tobacco Use: Non-smoker Assessment/Plan 1. Paroxysmal atrial fibrillation The present time he appears to be remaining in sinus rhythm. He will continue cardiac air sampling and monitoring post surgery. 2. Hyperlipidemia He will continue risk factor evaluation care as deemed appropriate. 3. Hypertension His blood pressure will be followed. His medications can be adjusted as needed. 4. Small bowel obstruction He is now status post a general surgical procedure. He has been up and ambulating in the hallway. Thus far there is been no obvious postoperative adverse cardiovascular events. Comment: The patient's case was discussed and reviewed with the patient and Dr. Akbar. This note was generated using a voice recognition system and there may be incorrect words, spelling or punctuation that were not noted when reviewing the office note prior to saving.
[2019-04-15] MEDS: Tamsulosin HCl 0.4 MG Capsule PO (17:24)
--- NOTE | 2019-04-15 17:29 | PCM.PROGNOTE ---
Patient Problems: Active and Suspected Problems (Last Reviewed 04/12/19 @ 11:15 by Katy Elizondo PA-C) SBO (small bowel obstruction) (Acute) Preop cardiovascular exam (Acute) Subjective: Patient was seen and examined today, I told him I stopped his telemetry and he seemed okay with this. Patient has not had any significant arrhythmias. Patient has some bowel sounds on auscultation today. - Physical Exam General: Alert, Oriented x3, Cooperative, No apparent distress, Well developed HEENT: Atraumatic, PERRLA, EOMI, Normocephalic Oral: Moist Mucosa Neck: Supple, No JVD, Trachea Midline, Thyroid Normal Size and Texture Lungs: Clear to auscultation, Normal air movement, No rhonchi, No wheeze, No rales, Diminished, Rales Cardiovascular: Regular rate, Regular Rhythm, Normal S1, Normal S2, No murmurs, No Ectopic Activity, PMI Normal, No rub noted Abdomen: Bowel Sounds Present, Soft, Hypoactive Bowel Sounds Extremities: No clubbing, No cyanosis, No edema, Capillary Refill Less than 3 Seconds Skin: No rashes, No breakdown Musculoskeletal: No Tenderness to Palpation of Joints or Extremities Neurological: Cranial nerves II-XII grossly intact, Neuro grossly intact, Sensory exam intact to light touch and pain, Coordination normal Psych/Mental Status: Normal Affect, Appropriate, Alert and oriented to time, place, person, mood and affect Vital Signs Temp Pulse Resp BP Pulse Ox 98.4 F 75 18 146/87 H 93 04/15/19 14:24 04/15/19 14:24 04/15/19 14:24 04/15/19 14:24 04/15/19 14:24 Oxygen Flow Rate (L/min) 2 Oxygen Delivery Method Room Air Weight: 137.55 kg Body Mass Index (BMI) 35.8 Intake and Output for Last 24 Hours 04/13/19 04/14/19 04/15/19 23:59 23:59 23:59 Intake Total 4904 / 5806 3503 / 3503 1126 / 1126 Output Total 1525 / 2450 4685 / 4685 1250 / 1250 Balance 3379 / 3356 -1182 / -1182 -124 / -124 Laboratory Tests Past 24 Hrs 04/15/19 04/15/19 09:04 09:04 WBC 9.4 RBC 4.81 Hgb 14.5 Hct 43.0 MCV 89.4 MCH 30.1 MCHC 33.7 RDW 13.7 RDW Differential 44.9 H Plt Count 207 MPV 9.0 Immature Gran % (Auto) 0.300 Neut % (Auto) 63.0 Lymph % (Auto) 19.7 [place] % (Auto) 13.9 H Eos % (Auto) 2.4 Baso % (Auto) 0.7 Absolute Neuts (auto) 5.9 Absolute Lymphs (auto) 1.86 Total Counted Not Reportable Atypical Lymphocytes 1+ Sodium 140 Potassium 3.8 Chloride 105 Carbon Dioxide 25.0 Anion Gap 10 BUN 12 Creatinine 1.12 Estim Creat Clear Calc 104.97 Est GFR (MDRD) Af Amer 91 Est GFR (MDRD) Non-Af 75 BUN/Creatinine Ratio 10.7 Glucose 75 Calcium 8.2 L Magnesium 2.0 Medical Necessity - Tobacco Use Smoking Status: Never smoker Tobacco Use: Non-smoker Assessment/Plan All Active Problems (Last Reviewed 04/12/19 @ 11:15 by Katy Elizondo PA-C) SBO (small bowel obstruction) (Acute) Preop cardiovascular exam (Acute) #1 small bowel obstruction-probably secondary to adhesions, postop day #2 #2 paroxysmal atrial fibrillation-presently in sinus, again, I stopped the patient's telemetry today and 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 #3 essential hypertension #4 hyperlipidemia Code Visit Inpatient E&M: 08495 Subs Hosp L2
--- NOTE | 2019-04-15 19:30 | NURSING ---
Pt up ambulating in hallway at this time.
--- NOTE | 2019-04-16 00:52 | NURSING ---
Pt up ambulating at this time in hallway, alissa present.
[2019-04-16] MEDS: HYDROmorphone 1 MG/ML Syringe IV ×7 (01:10→21:32)
[2019-04-16] MEDS: proMETHazine 25 MG/ML Syringe 12.5 MG IV ×3 (01:11→18:32)
[2019-04-16 01:45] VITALS: BP 131/83; PULSE 89; RESP 18; TEMP 37.2; O2SAT 94
[2019-04-16 06:44] VITALS: O2SAT 91
--- NOTE | 2019-04-16 07:34 | PCM.PN.SRG ---
Patient Problems: Active and Suspected Problems (Last Reviewed 04/12/19 @ 11:15 by Katy Elizondo PA-C) SBO (small bowel obstruction) (Acute) Preop cardiovascular exam (Acute) Subjective: Patient still taking Dilaudid for pain as the Toradol did not do anything for him he is trying to space out a little longer but every 3 hours. Patient still denies any flatus or bowel function but does state that he feels some gurgling. He is taking a bit of ice chips so unable to get adequate NG output, ambulating the halls - Physical Exam General: Alert, Oriented x3, Cooperative, No apparent distress HEENT: Atraumatic Lungs: Normal air movement Cardiovascular: Regular rate Abdomen: Bowel Sounds Present, Soft, Distended - Moderate, Tender - Tender to palpation near incisions, incisions healing well clean dry and intact with Steri's Extremities: No clubbing, No cyanosis, No edema Neurological: Cranial nerves II-XII grossly intact Psych/Mental Status: Normal Affect Vital Signs Temp Pulse Resp BP Pulse Ox 99.0 F 89 18 131/83 H 91 04/16/19 01:45 04/16/19 01:45 04/16/19 01:45 04/16/19 01:45 04/16/19 06:44 Oxygen Flow Rate (L/min) 2 Oxygen Delivery Method Room Air Weight: 303 lb 3.933 oz Body Mass Index (BMI) 35.8 Intake and Output for Last 24 Hours 04/14/19 04/15/19 04/16/19 23:59 23:59 23:59 Intake Total 3503 / 3503 1919 / 1919 1829 / 1829 Output Total 4685 / 4685 2850 / 2850 1275 / 1275 Balance -1182 / -1182 -931 / -931 554 / 554 Laboratory Tests Past 24 Hrs 04/15/19 04/15/19 09:04 09:04 WBC 9.4 RBC 4.81 Hgb 14.5 Hct 43.0 MCV 89.4 MCH 30.1 MCHC 33.7 RDW 13.7 RDW Differential 44.9 H Plt Count 207 MPV 9.0 Immature Gran % (Auto) 0.300 Neut % (Auto) 63.0 Lymph % (Auto) 19.7 [place] % (Auto) 13.9 H Eos % (Auto) 2.4 Baso % (Auto) 0.7 Absolute Neuts (auto) 5.9 Absolute Lymphs (auto) 1.86 Total Counted Not Reportable Atypical Lymphocytes 1+ Sodium 140 Potassium 3.8 Chloride 105 Carbon Dioxide 25.0 Anion Gap 10 BUN 12 Creatinine 1.12 Estim Creat Clear Calc 104.97 Est GFR (MDRD) Af Amer 91 Est GFR (MDRD) Non-Af 75 BUN/Creatinine Ratio 10.7 Glucose 75 Calcium 8.2 L Magnesium 2.0 Medical Necessity - Tobacco Use Smoking Status: Never smoker Tobacco Use: Non-smoker Assessment/Plan All Active Problems (Last Reviewed 04/12/19 @ 11:15 by Katy Elizonod PA-C) SBO (small bowel obstruction) (Acute) Preop cardiovascular exam (Acute) Encourage continued trying to wean off narcotics Continue ambulation Await bowel function. Autumn Copeland M.D. Pager: [phone] [facility] [address] [place] [address], [facility], [address] [place] [address] Office: [phone]
[2019-04-16 09:53] VITALS: BP 156/97; PULSE 75; RESP 18; TEMP 36.9; O2SAT 98
[2019-04-16] MEDS: Enoxaparin 40 MG/0.4 ML Syringe SC (10:05)
--- NOTE | 2019-04-16 10:45 | PN.CARD_ITS ---
Subjectve: The patient is awake and alert. He has been up and ambulating. He is hopeful to have his NG tube removed later today and begin a clear liquid diet. He denies any obvious palpitations or chest discomfort or difficulty breathing. Objective: Vital Signs Temp Pulse Resp BP Pulse Ox 98.4 F 75 18 156/97 H 98 04/16/19 09:53 04/16/19 09:53 04/16/19 09:53 04/16/19 09:53 04/16/19 09:53 Oxygen Flow Rate (L/min) 2 Oxygen Delivery Method Room Air Weight: 303 lb 3.933 oz Body Mass Index (BMI) 35.8 Intake and Output for Last 24 Hours 04/14/19 04/15/19 04/16/19 23:59 23:59 23:59 Intake Total 3503 / 3503 9 / 1919 1829 / 1829 Output Total 4685 / 4685 2850 / 2850 1275 / 1275 Balance -1182 / -1182 -931 / -931 554 / 554 General: Awake, Alert, Oriented x 3, Cooperative, No Acute Distress HEENT: Atraumatic, Normocephalic, PERRL Oral: Moist Mucosa Neck: Supple, Good ROM, No JVD Lungs: Clear to auscultation Cardiovascular: Regular Rhythm, Normal S1, Normal S2 Abdomen: Hypoactive Bowel Sounds Extremities: No edema Neurological: No Focal Motor or Sensory Deficit Psych/Mental Status: Appropriate Medical Necessity - Tobacco Use Smoking Status: Never smoker Tobacco Use: Non-smoker Assessment/Plan 1. Paroxysmal atrial fibrillation The present time he appears to be remaining in sinus rhythm. When he is able to resume oral medical therapy would be reasonable to resume his oral diltiazem CD 120 mg daily. 2. Hyperlipidemia He will continue risk factor evaluation care as deemed appropriate. 3. Hypertension Again, when he is able to resume oral medication it would be reasonable to resume his oral diltiazem CD 120 mg p.o. daily. This may assist with his blood pressure control which is been intermittently elevated potentially secondary to his underlying abdominal surgery/discomfort. 4. Small bowel obstruction He is now status post a general surgical procedure. He has been up and ambu lating in the hallway. Thus far there is been no obvious postoperative adverse cardiovascular events. Comment: The patient's case was discussed and reviewed with the patient. This note was generated using a voice recognition system and there may be incorrect words, spelling or punctuation that were not noted when reviewing the office note prior to saving.
[2019-04-16 15:40] VITALS: BP 164/62; PULSE 80; RESP 18; TEMP 37.1; O2SAT 98
[2019-04-16] MEDS: Tamsulosin HCl 0.4 MG Capsule PO (17:30)
--- NOTE | 2019-04-16 18:29 | PCM.PROGNOTE ---
Patient Problems: Active and Suspected Problems (Last Reviewed 04/12/19 @ 11:15 by Katy Elizondo PA-C) SBO (small bowel obstruction) (Acute) Preop cardiovascular exam (Acute) Subjective: Patient was seen and examined today, he has been walking in the [place] throughout the whole day. Patient is still using Dilaudid for pain. Patient has no complaints of any nausea. - Physical Exam General: Alert, Oriented x3, Cooperative, No apparent distress, Well developed HEENT: Atraumatic, PERRLA, EOMI, Normocephalic Oral: Moist Mucosa Neck: Supple, No JVD Lungs: Clear to auscultation, Normal air movement, No rhonchi, No wheeze, No rales Cardiovascular: Regular rate, Regular Rhythm, Normal S1, Normal S2, No murmurs, No Ectopic Activity Abdomen: Bowel Sounds Present, Soft, Hypoactive Bowel Sounds Extremities: No clubbing, No cyanosis, No edema, Capillary Refill Less than 3 Seconds Skin: No rashes, No breakdown Musculoskeletal: No Tenderness to Palpation of Joints or Extremities Neurological: Cranial nerves II-XII grossly intact, Neuro grossly intact, Sensory exam intact to light touch and pain, Coordination normal Psych/Mental Status: Normal Affect, Appropriate, Alert and oriented to time, place, person, mood and affect Vital Signs Temp Pulse Resp BP Pulse Ox 98.8 F 80 18 164/62 H 98 04/16/19 15:40 04/16/19 15:40 04/16/19 15:40 04/16/19 15:40 04/16/19 15:40 Oxygen Flow Rate (L/min) 2 Oxygen Delivery Method Room Air Weight: 137.55 kg Body Mass Index (BMI) 35.8 Intake and Output for Last 24 Hours 04/14/19 04/15/19 04/16/19 23:59 23:59 23:59 Intake Total 3503 / 3503 1919 / 1919 3365 / 3365 Output Total 4685 / 4685 2850 / 2850 2975 / 2975 Balance -1182 / -1182 -931 / -931 390 / 390 Medical Necessity - Tobacco Use Smoking Status: Never smoker Tobacco Use: Non-smoker Assessment/Plan All Active Problems (Last Reviewed 04/12/19 @ 11:15 by Katy Elizondo PA-C) SBO (small bowel obstruction) (Acute) Preop cardiovascular exam (Acute) #1 small bowel obstruction-secondary to adhesions, postop day #3, continue present care per surgery #2 paroxysmal atrial fibrillation-presently in sinus. #3 essential hypertension #4 hyperlipidemia Code Visit Inpatient E&M: 77525 Subs Hosp L2
[2019-04-16] MEDS: 0.9% NaCl Peripheral Flush Adult/Peds IV (18:34)
[2019-04-16 20:10] VITALS: BP 153/89; PULSE 71; RESP 16; TEMP 36.8; O2SAT 97
--- NOTE | 2019-04-16 21:01 | NURSING ---
Pt up ambulating in hallway with daughter at this time.
[2019-04-16] MEDS: Ondansetron 4 MG/2 ML Vial IV (21:34)
[2019-04-17] VITALS (13 sets, daily range): BP systolic 136–163; BP diastolic 91–109; PULSE 70–96; RESP 16–18; TEMP 36.8–37.3; O2SAT 90–98
--- NOTE | 2019-04-17 00:42 | NURSING ---
Pt up in hallway ambulating at this time, at pt's side.
[2019-04-17] MEDS: HYDROmorphone 1 MG/ML Syringe IV ×2 (01:12→04:24)
[2019-04-17] MEDS: proMETHazine 25 MG/ML Syringe 12.5 MG IV ×2 (01:13→08:43)
--- NOTE | 2019-04-17 04:02 | NURSING ---
Pt up ambulating in hallway at this time with .
[2019-04-17] MEDS: Ondansetron 4 MG/2 ML Vial IV (04:25)
[2019-04-17] MEDS: 0.9% NaCl Peripheral Flush Adult/Peds IV ×7 (05:18→20:50)
--- NOTE | 2019-04-17 06:20 | PCM.PN.SRG ---
Patient Problems: Active and Suspected Problems (Last Reviewed 04/12/19 @ 11:15 by Katy Elizondo PA-C) SBO (small bowel obstruction) (Acute) Preop cardiovascular exam (Acute) Subjective: More comfortable, ambulating better, no flatus, cutting back on narcotics but still using - Physical Exam General: Alert, Oriented x3 Lungs: Clear to auscultation, Normal air movement Abdomen: Soft, Hypoactive Bowel Sounds, Distended, - - incision red at steri strips Extremities: - - right forearm basilic vein, firm cord, sl tender Vital Signs Temp Pulse Resp BP Pulse Ox 98.6 F 81 18 136/94 H 90 04/17/19 01:25 04/17/19 01:25 04/17/19 01:25 04/17/19 01:25 04/17/19 01:25 Oxygen Flow Rate (L/min) 2 Oxygen Delivery Method Room Air Weight: 303 lb 3.933 oz Body Mass Index (BMI) 35.8 Intake and Output for Last 24 Hours 04/15/19 04/16/19 04/17/19 23:59 23:59 23:59 Intake Total 2044 / 2044 3740 / 3740 1330 / 1330 Output Total 2850 / 2850 2975 / 2975 1000 / 1000 Balance -806 / -806 765 / 765 330 / 330 Laboratory Tests Past 24 Hrs 04/17/19 04/17/19 05:15 05:15 WBC Pending RBC Pending Hgb Pending Hct Pending MCV Pending MCH Pending MCHC Pending RDW Pending RDW Differential Pending Plt Count Pending Neut % (Auto) Pending Absolute Neuts (auto) Pending Total Counted Pending Sodium Pending Potassium Pending Chloride Pending Carbon Dioxide Pending Anion Gap Pending BUN Pending Creatinine Pending Est GFR (MDRD) Af Amer Pending Est GFR (MDRD) Non-Af Pending BUN/Creatinine Ratio Pending Glucose Pending Calcium Pending Magnesium Pending Medical Necessity - Tobacco Use Smoking Status: Never smoker Tobacco Use: Non-smoker Assessment/Plan All Active Problems (Last Reviewed 04/12/19 @ 11:15 by Katy Elizondo PA-C) SBO (small bowel obstruction) (Acute) Preop cardiovascular exam (Acute) Will taper IVF Will intermittent clamp ngt Will remove steri's, possible tension and pre blistering Will encourage cessation of narcotics Will treat right forearm superficial thrombophlebitis related to IV site with moist warm heat and start 325mg ASA daily
[2019-04-17 07:00] LABS: Absolute Lymphocyte Count 1.46 X10^3/ul (0.83-4.51); Absolute Neutrophil Count 4.3 X10^3/uL (2.0-7.7); Anion Gap 7 (5-15); BUN 7 mg/dL (7-18); BUN/Creat Ratio 7.7 RATIO (10-20); Basophil# 0.02 X10^3/uL; Basophil% 0.3 % (0-1); Calcium,Total 8.2 mg/dL (8.5-10.1); Chloride 104 mmol/L (98-107); Creatinine, Serum 0.91 mg/dL (0.70-1.30); EST Glomerular Filtration Rate 95 mL/min (>60); Eosinophil# 0.25 X10^3/uL; Eosinophils% 3.6 % (0-5); Est Glom Filt Rate - Afr Amer 115 mL/min (>60); Estimated Creatinine Clearance 129.19 ml/min; Glucose 89 mg/dL (74-106); Hematocrit 42.9 % (40-54); Hemoglobin 14.6 g/dl (13.0-16.5); Lymphocyte # 1.46 X10^3/ul (4.0); Lymphocyte % 20.9 % (19-41); Magnesium 1.9 mg/dL (1.6-2.6); Mean Corpuscular Hgb 29.6 pg (27.0-32.0); Mean Corpuscular Volume 86.8 fL (80-94); Mean Platelet Vol. 9.1 fl (6.2-12.0); Monocyte# 0.96 X10^3/uL; Monocyte% 13.7 % (0-10); Neutrophil # 4.27 X10^3/uL (2.7-7.7); Neutrophil % 61.1 % (47-70); Platelet Count 244 K/mm3 (150-450); Potassium 3.7 mmol/L (3.5-5.1); RBC Distribution Width CV 13.3 % (11.6-14.6); RBC Distribution Width SD 41.3 fl (35.1-43.9); Red Blood Count 4.94 M/mm3 (4.6-6.2); Sodium Level 138 mmol/L (136-145)
[2019-04-17 07:18] LABS: Differential Indicated SCAN CRITERIA MET; POSITIVE COUNT NO; POSITIVE DIFFERENTIAL NO; POSITIVE MORPHOLOGY YES
[2019-04-17 07:35] LABS: Differential Comment SCANNED
--- NOTE | 2019-04-17 08:46 | NURSING ---
MEDICATED FOR NAUSEA. NG BACK TO LIWS, PT REQUESTING MOTRIN OR SOMETHING WHEN CLAMPED AGAIN.
--- NOTE | 2019-04-17 09:34 | PN_ITS ---
Patient Problems: Active and Suspected Problems (Last Reviewed 04/12/19 @ 11:15 by Katy Elizondo PA-C) SBO (small bowel obstruction) (Acute) Preop cardiovascular exam (Acute) Subjective: Patient is a 43-year-old male who presented with abdominal pain. Patient was found to have persistent non-resolving small bowel obstruction General surgery consulted patient underwent Laparoscopy with conversion to hand-assisted laparoscopy with lysis of adhesions with conversion to laparotomy with extensive lysis of adhesions and mobilization of bowel with release of small bowel obstruction on 04/13/[address] Jeffery Horn. Objective: GENERAL: Patient appears to be in some discomfort HEENT: Atraumatic; EYES; Anicteric, Normal Conjunctiva NECK; supple, normal thyroid, RESPIRATORY: Diminished to auscultation bilaterally, CARDIOVASCULAR: Regular S1 S2, GI: Bowel sounds not appreciated : No Renal angle tenderness; EXTREMITIES: No edema, no clubbing, MUSCULOSKELETAL: No Joint Tenderness NEURO: Awake; no lateralizing signs. SKIN: No Rash PSYCH; Normal affect Vitals/I&O's: Vital Signs Temp Pulse Resp BP Pulse Ox 98.2 F 81 16 141/99 H 95 04/17/19 08:00 04/17/19 08:00 04/17/19 08:00 04/17/19 08:00 04/17/19 08:00 Oxygen Flow Rate (L/min) 2 Oxygen Delivery Method Room Air Weight: 137.55 kg Body Mass Index (BMI) 35.8 Intake and Output for Last 24 Hours 04/15/19 04/16/19 04/17/19 23:59 23:59 23:59 Intake Total 2043 / 2044 3740 / 3740 1966 / 1966 Output Total 2850 / 2850 2975 / 2975 1900 / 1900 Balance -806 / -806 765 / 765 67 / 67 Laboratory Results 04/17/19 05:15: WBC 7.0, RBC 4.94, Hgb 14.6, Hct 42.9, MCV 86.8, MCH 29.6, MCHC 34.0, RDW 13.3, RDW Differential 41.3, Plt Count 244, MPV 9.1, Immature Gran % (Auto) 0.400, Neut % (Auto) 61.1, Lymph % (Auto) 20.9, [place] % (Auto) 13.7 H, Eos % (Auto) 3.6, Baso % (Auto) 0.3, Absolute Neuts (auto) 4.3, Absolute Lymphs (auto) 1.46, Total Counted Not Reportable, Differential Comment SCANNED 04/17/19 05:15: Sodium 138, Potassium 3.7, Chloride 104, Carbon Dioxide 27.0, Anion Gap 7, BUN 7, Creatinine 0.91, Estim Creat Clear Calc 129.19, Est GFR (MDRD) Af Amer 115, Est GFR (MDRD) Non-Af 95, BUN/Creatinine Ratio 7.7 L, Glucose 89, Calcium 8.2 L, Magnesium 1.9 Current Medications Acetaminophen (Tylenol) 650 mg RECTAL Q4H PRN PRN PRN Reason: fever, pain Albuterol Sulfate (Ventolin Aerosols) 2.5 mg INHALATION Q2H PRN PRN PRN Reason: dyspnea, wheezing Aspirin (Ecotrin) 325 mg PO DAILY@0800 [facility] Dextrose (D50w Syringe) 0 gm IV X1 PRN; Protocol PRN Reason: Hypoglycemia Enoxaparin Sodium (Lovenox) 40 mg SC DAILY@1000 OBINNA Last Admin: 04/16/19 10:05 Dose: 40 mg Documented by: Glucagon () 1 mg IM .X1 PRN PRN Reason: Hypoglycemia Hydralazine HCl (Apresoline Iv) 10 mg IV Q4H PRN PRN PRN Reason: SBP > 160 Hydromorphone HCl (Dilaudid Inj) 0.5 - 1 mg IV Q2H PRN PRN PRN Reason: SEVERE PAIN (6-10/10) Last Admin: 04/17/19 04:24 Dose: 0.5 mg Documented by: Pantoprazole Sodium 40 mg/ (Sodium Chloride) 110 mls @ 330 mls/hr IV Q12 [facility] Last Admin: 04/16/19 21:42 Dose: 330 mls/hr Documented by: Potassium Chloride/Dextrose/Sod Cl (Kcl 20meq In D5.45ns 1000ml) 1,000 mls @ 50 mls/hr IV .Q20H [facility] Last Admin: 04/17/19 08:32 Dose: 50 mls/hr Documented by: Ketorolac Tromethamine (Toradol) 15 mg IV Q8H PRN PRN PRN Reason: PAIN Stop: 04/19/19 17:42 Last Admin: 04/15/19 11:05 Dose: 15 mg Documented by: Lidocaine HCl (Xylocaine Viscous) 5 ml PO Q3H PRN PRN Reason: sore throat, irritation w/ NGT Lorazepam (Ativan) 0.5 mg IV Q4H PRN PRN PRN Reason: ANXIETY Last Admin: 04/14/19 13:00 Dose: 0.5 mg Documented by: Neomycin/Polymyxin/Bacitracin (Neosporin) 1 applic TOPICAL TID PRN PRN; Protocol PRN Reason: WOUND CARE Ondansetron HCl (Zofran) 4 mg IV Q6H PRN PRN PRN Reason: NAUSEA/VOMITING Last Admin: 04/17/19 04:25 Dose: 4 mg Documented by: Phenol/Menthol (Chloraseptic (Bkc)) 5 spray MM Q2H PRN PRN PRN Reason: SORE THROAT Promethazine HCl (Phenergan) 12.5 mg IV Q4H PRN PRN PRN Reason: NAUSEA/VOMITING Last Admin: 04/17/19 08:43 Dose: 12.5 mg Documented by: Sodium Chloride () 5 - 15 ml IV UD PRN PRN Reason: SALINE FLUSH Last Admin: 04/17/19 08:43 Dose: 10 ml Documented by: Tamsulosin HCl (Flomax) 0.4 mg PO DAILY@1730 [facility]INNA Last Admin: 04/16/19 17:30 Dose: 0.4 mg Documented by: Medical Necessity - Tobacco Use Smoking Status: Never smoker Tobacco Use: Non-smoker Assessment/Plan All Active Problems (Last Reviewed 04/12/19 @ 11:15 by Katy Elizondo PA-C) SBO (small bowel obstruction) (Acute) Preop cardiovascular exam (Acute) Patient is a 43-year-old male who presented with abdominal pain. Patient was found to have persistent non-resolving small bowel obstruction General surgery consulted patient underwent Laparoscopy with conversion to hand-assisted laparoscopy with lysis of adhesions with conversion to laparotomy with extensive lysis of adhesions and mobilization of bowel with release of small bowel obstruction on 04/13/[address] Jeffery Horn. 1. Acute persistent non-resolving small bowel obstruction General surgery consulted patient underwent Laparoscopy with conversion to hand-assisted laparoscopy with lysis of adhesions with conversion to laparotomy with extensive lysis of adhesions and mobilization of bowel with release of small bowel obstruction on 04/13/[address] Jeffery Horn. 2. Paroxysmal atrial fibrillation currently in sinus rhythm. Patient was on flecainide prior to admission 3. Hypertension-blood pressure controlled, 4. History of carcinoid tumor status post resection 5. Dyslipidemia patient was on Crestor prior to admission 6. BMI of 35.8 weight loss advised 7. DVT prophylaxis SC Lovenox Active Medications Acetaminophen (Tylenol) 650 mg RECTAL Q4H PRN PRN PRN Reason: fever, pain Albuterol Sulfate (Ventolin Aerosols) 2.5 mg INHALATION Q2H PRN PRN PRN Reason: dyspnea, wheezing Aspirin (Ecotrin) 325 mg PO DAILY@0800 [facility] Dextrose (D50w Syringe) 0 gm IV X1 PRN; Protocol PRN Reason: Hypoglycemia Enoxaparin Sodium (Lovenox) 40 mg SC DAILY@1000 [facility]NA Last Admin: 04/16/19 10:05 Dose: 40 mg Documented by: Glucagon () 1 mg IM .X1 PRN PRN Reason: Hypoglycemia Hydralazine HCl (Apresoline Iv) 10 mg IV Q4H PRN PRN PRN Reason: SBP > 160 Hydromorphone HCl (Dilaudid Inj) 0.5 - 1 mg IV Q2H PRN PRN PRN Reason: SEVERE PAIN (-07/27) Last Admin: 04/17/19 04:24 Dose: 0.5 mg Documented by: Pantoprazole Sodium 40 mg/ (Sodium Chloride) 110 mls @ 330 mls/hr IV Q12 [facility] Last Admin: 04/16/19 21:42 Dose: 330 mls/hr Documented by: Potassium Chloride/Dextrose/Sod Cl (Kcl 20meq In D5.45ns 1000ml) 1,000 mls @ 50 mls/hr IV .Q20H [facility] Last Admin: 04/17/19 08:32 Dose: 50 mls/hr Documented by: Ketorolac Tromethamine (Toradol) 15 mg IV Q8H PRN PRN PRN Reason: PAIN Stop: 04/19/19 17:42 Last Admin: 04/15/19 11:05 Dose: 15 mg Documented by: Lidocaine HCl (Xylocaine Viscous) 5 ml PO Q3H PRN PRN Reason: sore throat, irritation w/ NGT Lorazepam (Ativan) 0.5 mg IV Q4H PRN PRN PRN Reason: ANXIETY Last Admin: 04/14/19 13:00 Dose: 0.5 mg Documented by: Neomycin/Polymyxin/Bacitracin (Neosporin) 1 applic TOPICAL TID PRN PRN; Protocol PRN Reason: WOUND CARE Ondansetron HCl (Zofran) 4 mg IV Q6H PRN PRN PRN Reason: NAUSEA/VOMITING Last Admin: 04/17/19 04:25 Dose: 4 mg Documented by: Phenol/Menthol (Chloraseptic (Bkc)) 5 spray MM Q2H PRN PRN PRN Reason: SORE THROAT Promethazine HCl (Phenergan) 12.5 mg IV Q4H PRN PRN PRN Reason: NAUSEA/VOMITING Last Admin: 04/17/19 08:43 Dose: 12.5 mg Documented by: Sodium Chloride () 5 - 15 ml IV UD PRN PRN Reason: SALINE FLUSH Last Admin: 04/17/19 08:43 Dose: 10 ml Documented by: Tamsulosin HCl (Flomax) 0.4 mg PO DAILY@1730 [facility] Last Admin: 04/16/19 17:30 Dose: 0.4 mg Documented by: Code Visit Inpatient E&M: 57687 Subs Hosp L2
--- NOTE | 2019-04-17 10:18 | PCM.PN.CARD ---
Subjectve: The patient remains with the NG tube in place. He is taking ice chips. He has been up and ambulating. He has no complaints of palpitations or other chest discomfort or difficulty breathing. Objective: Vital Signs Temp Pulse Resp BP Pulse Ox 98.2 F 81 16 141/99 H 95 04/17/19 08:00 04/17/19 08:00 04/17/19 08:00 04/17/19 08:00 04/17/19 08:00 Oxygen Flow Rate (L/min) 2 Oxygen Delivery Method Room Air Weight: 303 lb 3.933 oz Body Mass Index (BMI) 35.8 Intake and Output for Last 24 Hours 04/15/19 04/16/19 04/17/19 23:59 23:59 23:59 Intake Total 2043 / 2043 3740 / 3740 1966 / 1966 Output Total 2850 / 2850 2975 / 2975 1900 / 1900 Balance -806 / -806 765 / 765 / 67 General: Awake, Alert, Oriented x 3, Cooperative, No Acute Distress HEENT: Atraumatic, Normocephalic, PERRL, EOMI, Sclera Non Icteric Oral: Moist Mucosa Neck: Supple, Good ROM, No JVD Lungs: Clear to auscultation Cardiovascular: Regular Rhythm, Normal S1, Normal S2 Vascular: No Carotid Bruits Abdomen: Hypoactive Bowel Sounds Extremities: No edema Neurological: No Focal Motor or Sensory Deficit Psych/Mental Status: Appropriate 04/17/19 05:15: WBC 7.0, RBC 4.94, Hgb 14.6, Hct 42.9, MCV 86.8, MCH 29.6, MCHC 34.0, RDW 13.3, RDW Differential 41.3, Plt Count 244, MPV 9.1, Immature Gran % (Auto) 0.400, Neut % (Auto) 61.1, Lymph % (Auto) 20.9, [place] % (Auto) 13.7 H, Eos % (Auto) 3.6, Baso % (Auto) 0.3, Absolute Neuts (auto) 4.3, Total Counted Not Reportable 04/17/19 05:15: Sodium 138, Potassium 3.7, Chloride 104, Carbon Dioxide 27.0, Anion Gap 7, BUN 7, Creatinine 0.91, Est GFR (MDRD) Af Amer 115, Est GFR (MDRD) Non-Af 95, BUN/Creatinine Ratio 7.7 L, Glucose 89, Calcium 8.2 L, Magnesium 1.9 Medical Necessity - Tobacco Use Smoking Status: Never smoker Tobacco Use: Non-smoker Assessment/Plan 1. Paroxysmal atrial fibrillation The present time he appears to be remaining in sinus rhythm. When he is able to resume oral medical therapy would be reasonable to resume his oral diltiazem CD 120 mg daily. 2. Hyperlipidemia He will continue risk factor evaluation care as deemed appropriate. 3. Hypertension The patient's blood pressures have been somewhat elevated. As he is still not taking oral agents that may be reasonable to use alternative agents such as IV agents to assist in his blood pressure control. At the present time he will be placed on enalapril at 0.625 mg IV every 6 hours. He will be placed back on cardiac telemetry based upon receiving this IV antihypertensive regimen. 4. Small bowel obstruction He is now status post a general surgical procedure. He has been up and ambulating in the hallway. Thus far there is been no obvious postoperative adverse cardiovascular events. Comment: The patient's case was discussed and reviewed with the patient. This note was generated using a voice recognition system and there may be incorrect words, spelling or punctuation that were not noted when reviewing the office note prior to saving.
[2019-04-17] MEDS: Aspirin E.C. 325 MG Tablet PO (10:26)
[2019-04-17] MEDS: Enoxaparin 40 MG/0.4 ML Syringe SC (10:26)
[2019-04-17] MEDS: Ketorolac 30 MG/ML Syringe IV ×2 (10:27→20:49)
[2019-04-17] MEDS: Enalaprilat 1.25 MG/ML Vial 0.625 MG IV ×3 (13:15→23:45)
[2019-04-17] MEDS: Tamsulosin HCl 0.4 MG Capsule PO (17:52)
[2019-04-17] MEDS: hydrALAZINE 20 MG/ML Vial 10 MG IV ×2 (20:49→22:37)
[2019-04-18] VITALS (8 sets, daily range): BP systolic 138–148; BP diastolic 83–103; PULSE 73–94; RESP 16; TEMP 36.3–37.1; O2SAT 95–98
[2019-04-18] MEDS: Enalaprilat 1.25 MG/ML Vial 0.625 MG IV (05:52)
--- NOTE | 2019-04-18 06:13 | PCM.PN.SRG ---
Patient Problems: Active and Suspected Problems (Last Reviewed 04/12/19 @ 11:15 by Katy Elizondo PA-C) SBO (small bowel obstruction) (Acute) Preop cardiovascular exam (Acute) Subjective: Stool, flatus, much more comfortable, fatigued - Physical Exam Lungs: Clear to auscultation Abdomen: Bowel Sounds Present, Soft, Non Tender - wound clean Vital Signs Temp Pulse Resp BP Pulse Ox 98.8 F 73 16 142/93 H 96 04/18/19 02:00 04/18/19 04:12 04/18/19 02:00 04/18/19 05:50 04/18/19 02:00 Oxygen Flow Rate (L/min) 2 Oxygen Delivery Method Room Air Weight: 303 lb 3.933 oz Body Mass Index (BMI) 35.8 Intake and Output for Last 24 Hours 04/16/19 04/17/19 04/18/19 23:59 23:59 23:59 Intake Total 3740 / 3740 2989 / 3589 1437 / 1437 Output Total 2975 / 2975 2900 / 3300 400 / 400 Balance 765 / 765 89 / 289 1037 / 1037 Laboratory Tests Past 24 Hrs 04/17/19 04/17/19 05:15 05:15 WBC 7.0 RBC 4.94 Hgb 14.6 Hct 42.9 MCV 86.8 MCH 29.6 MCHC 34.0 RDW 13.3 RDW Differential 41.3 Plt Count 244 MPV 9.1 Immature Gran % (Auto) 0.400 Neut % (Auto) 61.1 Lymph % (Auto) 20.9 [place] % (Auto) 13.7 H Eos % (Auto) 3.6 Baso % (Auto) 0.3 Absolute Neuts (auto) 4.3 Absolute Lymphs (auto) 1.46 Total Counted Not Reportable Differential Comment SCANNED Sodium 138 Potassium 3.7 Chloride 104 Carbon Dioxide 27.0 Anion Gap 7 BUN 7 Creatinine 0.91 Estim Creat Clear Calc 129.19 Est GFR (MDRD) Af Amer 115 Est GFR (MDRD) Non-Af 95 BUN/Creatinine Ratio 7.7 L Glucose 89 Calcium 8.2 L Magnesium 1.9 Medical Necessity - Tobacco Use Smoking Status: Never smoker Tobacco Use: Non-smoker Assessment/Plan All Active Problems (Last Reviewed 04/12/19 @ 11:15 by Katy Elizondo PA-C) SBO (small bowel obstruction) (Acute) Preop cardiovascular exam (Acute) Advance diet Possible discharge today
--- NOTE | 2019-04-18 07:36 | PCM.PN.HOSP ---
Patient Problems: Active and Suspected Problems (Last Reviewed 04/12/19 @ 11:15 by Katy Elizondo PA-C) SBO (small bowel obstruction) (Acute) Preop cardiovascular exam (Acute) Subjective: Patient did experience loose bowel movement during the night. Plan is for patient to start clear liquids. Pain is much more tolerable compared to the day prior. Objective: GENERAL: Cooperative HEENT: Atraumatic; EYES; Anicteric, Normal Conjunctiva NECK; supple, normal thyroid, RESPIRATORY: Diminished to auscultation bilaterally, CARDIOVASCULAR: Regular S1 S2, GI: Nondistended : No Renal angle tenderness; EXTREMITIES: No edema, no clubbing, MUSCULOSKELETAL: No Joint Tenderness NEURO: Awake; no lateralizing signs. SKIN: No Rash PSYCH; Normal affect Vitals/I&O's: Vital Signs Temp Pulse Resp BP Pulse Ox 98.8 F 73 16 142/93 H 96 04/18/19 02:00 04/18/19 04:12 04/18/19 02:00 04/18/19 05:50 04/18/19 02:00 Oxygen Flow Rate (L/min) 2 Oxygen Delivery Method Room Air Weight: 137.55 kg Body Mass Index (BMI) 35.8 Intake and Output for Last 24 Hours 04/16/19 04/17/19 04/18/19 23:59 23:59 23:59 Intake Total 3740 / 3740 2989 / 3589 1437 / 1437 Output Total 2975 / 2975 2900 / 3300 400 / 400 Balance 765 / 765 89 / 289 1037 / 1037 Current Medications Acetaminophen (Tylenol) 650 mg RECTAL Q4H PRN PRN PRN Reason: fever, pain Albuterol Sulfate (Ventolin Aerosols) 2.5 mg INHALATION Q2H PRN PRN PRN Reason: dyspnea, wheezing Aspirin (Ecotrin) 325 mg PO DAILY@0800 [facility] Last Admin: 04/17/19 10:26 Dose: 325 mg Documented by: Dextrose (D50w Syringe) 0 gm IV X1 PRN; Protocol PRN Reason: Hypoglycemia Enalaprilat (Vasotec) 0.625 mg IV Q6 [facility] Last Admin: 04/18/19 05:52 Dose: 0.625 mg Documented by: Enoxaparin Sodium (Lovenox) 40 mg SC DAILY@1000 [facility] Last Admin: 04/17/19 10:26 Dose: 40 mg Documented by: Glucagon () 1 mg IM .X1 PRN PRN Reason: Hypoglycemia Hydralazine HCl (Apresoline Iv) 10 mg IV Q4H PRN PRN PRN Reason: SBP > 160 Last Admin: 04/17/19 20:49 Dose: 10 mg Documented by: Hydromorphone HCl (Dilaudid Inj) 0.5 - 1 mg IV Q2H PRN PRN PRN Reason: SEVERE PAIN (6-10/10) Last Admin: 04/17/19 04:24 Dose: 0.5 mg Documented by: Ketorolac Tromethamine (Toradol) 30 mg IV Q6H PRN PRN PRN Reason: PAIN Stop: 04/22/19 09:56 Last Admin: 04/17/19 20:49 Dose: 15 mg Documented by: Lidocaine HCl (Xylocaine Viscous) 5 ml PO Q3H PRN PRN Reason: sore throat, irritation w/ NGT Lorazepam (Ativan) 0.5 mg IV Q4H PRN PRN PRN Reason: ANXIETY Last Admin: 04/14/19 13:00 Dose: 0.5 mg Documented by: Neomycin/Polymyxin/Bacitracin (Neosporin) 1 applic TOPICAL TID PRN PRN; Protocol PRN Reason: WOUND CARE Ondansetron HCl (Zofran) 4 mg IV Q6H PRN PRN PRN Reason: NAUSEA/VOMITING Last Admin: 04/17/19 04:25 Dose: 4 mg Documented by: Pantoprazole Sodium (Protonix) 40 mg PO DAILY [facility] Phenol/Menthol (Chloraseptic (Bkc)) 5 spray MM Q2H PRN PRN PRN Reason: SORE THROAT Promethazine HCl (Phenergan) 12.5 mg IV Q4H PRN PRN PRN Reason: NAUSEA/VOMITING Last Admin: 04/17/19 08:43 Dose: 12.5 mg Documented by: Sodium Chloride () 5 - 15 ml IV UD PRN PRN Reason: SALINE FLUSH Last Admin: 04/17/19 20:50 Dose: 15 ml Documented by: Tamsulosin HCl (Flomax) 0.4 mg PO DAILY@1730 [facility] Last Admin: 04/17/19 17:52 Dose: 0.4 mg Documented by: Medical Necessity - Tobacco Use Smoking Status: Never smoker Tobacco Use: Non-smoker Assessment/Plan All Active Problems (Last Reviewed 04/12/19 @ 11:15 by Katy Elizondo PA-C) SBO (small bowel obstruction) (Acute) Preop cardiovascular exam (Acute) Patient is a 43-year-old male who presented with abdominal pain. Patient was found to have persistent non-resolving small bowel obstruction General surgery consulted patient underwent Laparoscopy with conversion to hand-assisted laparoscopy with lysis of adhesions with conversion to laparotomy with extensive lysis of adhesions and mobilization of bowel with release of small bowel obstruction on 04/13/[address] Jeffery Horn. 1. Acute persistent non-resolving small bowel obstruction General surgery consulted patient underwent Laparoscopy with conversion to hand-assisted laparoscopy with lysis of adhesions with conversion to laparotomy with extensive lysis of adhesions and mobilization of bowel with release of small bowel obstruction on 04/13/[address] Jeffery Horn. ~04/18/19 patient had loose bowel movement during the evening. Plan is for patient to be started on clear liquids and advanced as tolerated 2. Paroxysmal atrial fibrillation currently in sinus rhythm. Patient was on Cardizem and flecainide when needed 3. Hypertension-blood pressure controlled, 4. History of carcinoid tumor status post resection 5. Dyslipidemia patient was on Crestor prior to admission 6. BMI of 35.8 weight loss advised 7. DVT prophylaxis SC Lovenox A Code Visit Inpatient E&M: 56503 Subs Hosp L2
[2019-04-18] MEDS: Pantoprazole Sodium 40 MG Tablet PO (09:26)
[2019-04-18] MEDS: Enoxaparin 40 MG/0.4 ML Syringe SC (09:26)
[2019-04-18] MEDS: Aspirin E.C. 325 MG Tablet PO (09:26)
--- NOTE | 2019-04-18 09:38 | CASEMGMT ---
JARAD CM in to follow-up with patient. Patient states that he is doing better. Possible plan for discharge today. Patient states that his plan is to discharge home and denies further needs. JARAD HELTON to continue to follow this patient and plan for a safe discharge.
[2019-04-18] MEDS: dilTIAZem CD 120 MG Capsule PO (10:46)
--- NOTE | 2019-04-18 13:19 | PCM.PN.CARD ---
Subjectve: The patient is awake and alert. He is now without his NG tube. He is taking oral supplements. He has been up and ambulating. He has no new complaints from a cardiac standpoint at this time. Objective: Vital Signs Temp Pulse Resp BP Pulse Ox 97.6 F L 93 16 148/103 H 96 04/18/19 12:11 04/18/19 12:11 04/18/19 12:11 04/18/19 12:11 04/18/19 12:11 Oxygen Flow Rate (L/min) 2 Oxygen Delivery Method Room Air Weight: 303 lb 3.933 oz Body Mass Index (BMI) 35.8 Intake and Output for Last 24 Hours 04/16/19 04/17/19 04/18/19 23:59 23:59 23:59 Intake Total 3740 / 3740 2989 / 3589 1437 / 1437 Output Total 2975 / 2975 2900 / 3300 400 / 400 Balance 765 / 765 89 / 289 1037 / 1037 General: Awake, Alert, Oriented x 3, Cooperative, No Acute Distress HEENT: Atraumatic, Normocephalic, PERRL, EOMI, Sclera Non Icteric Oral: Moist Mucosa, Dry Mucosa Neck: Good ROM, No JVD Lungs: Clear to auscultation Cardiovascular: Regular Rhythm, Normal S1, Normal S2 Abdomen: Bowel Sounds Present Extremities: No edema Neurological: No Focal Motor or Sensory Deficit Psych/Mental Status: Appropriate Rhythm: Sinus rhythm Medical Necessity - Tobacco Use Smoking Status: Never smoker Tobacco Use: Non-smoker Assessment/Plan 1. Paroxysmal atrial fibrillation The present time he appears to be remaining in sinus rhythm. Has resume medical management with his oral diltiazem therapy at 120 mg p.o. daily. 2. Hyperlipidemia He will continue risk factor evaluation care as deemed appropriate. 3. Hypertension His blood pressure has remained elevated. He will continue his oral diltiazem therapy. He will also be started on oral LOVE inhibitor therapy with lisinopril 10 mg p.o. daily. 4. Small bowel obstruction He is now status post a general surgical procedure. He has been up and ambulating in the hallway. His NG tube is removed. He is taking oral intake. According to the [facility] medical staff he may be able to be released home later today for continued outpatient follow-up. Comment: The patient's case was discussed and reviewed with the patient. This note was generated using a voice recognition system and there may be incorrect words, spelling or punctuation that were not noted when reviewing the office note prior to saving.
[2019-04-18] MEDS: Lisinopril 10 MG Tablet PO (13:41)
--- NOTE | 2019-04-18 16:22 | PCM.DC ---
- Discharge Diagnoses Current Active Problems: Current Active and Chronic Problems (Last Reviewed 04/12/19 @ 11:15 by Katy Elizondo PA-C) SBO (small bowel obstruction) (Acute) Preop cardiovascular exam (Acute) You will use the following diet at home:: No restrictions Discharge Activity: Return to Normal Activity Allergies/Adverse Reactions: Allergies MUSHROOMS Adverse Reaction (Uncoded 12/06/18 14:06) Other Medications to take at Discharge aspirin 81 mg tablet,delayed release 81 mg PO QDAY 11/19/17 cholecalciferol (vitamin D3) 2,000 unit capsule 2,000 unit PO QDAY cap 11/19/17 vitamin B complex and vit C no.3 15 mg-10 mg-50 mg-5 mg-300 mg capsule 1 cap PO QDAY 11/19/17 vitamin E (dl, acetate) 1,000 unit capsule 1,000 unit PO QDAY 11/19/17 bupropion HCl XL 300 mg 24 hr tablet, extended release 300 mg PO QAM 11/23/17 rosuvastatin 20 mg tablet 20 mg PO QDAY #30 tab 05/24/18 diltiazem CD 120 mg capsule,extended release 24 hr 120 mg PO DAILY #30 cap 09/15/18 flecainide 100 mg tablet 300 mg PO ONCE PRN #30 tab 09/22/18 Lisinopril [Zestril] 10 mg PO DAILY #30 tab 04/18/19 Pantoprazole Sodium [Protonix] 40 mg PO DAILY #30 tab 04/18/19 The following prescriptions were given: Pantoprazole Sodium [Protonix] 40 mg PO DAILY #30 tab Transmission Status: Pending to [id number] Lisinopril [Zestril] 10 mg PO DAILY #30 tab Transmission Status: Pending to [facility] Primary Care Physician: Nash Callahan MD [Primary Care Provider] - Please follow up with your Primary Care Physician in: in 1 week Test Results: Test results from this visit will be discussed in further detail at your follow-up appointment, if applicable. Please Follow Up With: Jeffery Horn MD When: in 1 week call for appointment Proposed Discharge Date: 04/18/19
--- NOTE | 2019-04-18 16:25 | DS.PCM_ITS ---
Discharge Date and Diagnosis - Problem List Patient Problems: Active and Suspected Problems (Last Reviewed 04/12/19 @ 11:15 by Katy Elizondo PA-C) SBO (small bowel obstruction) (Acute) Preop cardiovascular exam (Acute) Date of Admission: 04/12/19 Date of Discharge: 04/18/19 - Primary Discharge Diagnosis Active and Suspected Problems (Last Reviewed 04/12/19 @ 11:15 by Katy Elizondo PA-C) SBO (small bowel obstruction) (Acute) Preop cardiovascular exam (Acute) - Secondary Discharge Diagnosis Chronic Problems (Last Reviewed 04/12/19 @ 11:15 by Katy Elizondo PA-C) Essential hypertension (Chronic) Paroxysmal atrial fibrillation (Chronic) Hyperlipidemia (Chronic) GERD (gastroesophageal reflux disease) (Chronic) IBS (irritable bowel syndrome) (Chronic) Hospital Course and Treatment Operations: None Summary of Care Provided: Patient is a 43-year-old male who presented with abdominal pain. Patient was f ound to have persistent non-resolving small bowel obstruction General surgery consulted patient underwent Laparoscopy with conversion to hand-assisted laparoscopy with lysis of adhesions with conversion to laparotomy with extensive lysis of adhesions and mobilization of bowel with release of small bowel obstruction on 04/13/[address] Jeffery Horn. 1. Acute persistent non-resolving small bowel obstruction General surgery consulted patient underwent Laparoscopy with conversion to hand-assisted laparoscopy with lysis of adhesions with conversion to laparotomy with extensive lysis of adhesions and mobilization of bowel with release of small bowel obstruction on 04/13/[address] Jeffery Horn. Patient was started on oral diet once bowel function returned and advance as tolerated. 2. Paroxysmal atrial fibrillation currently in sinus rhythm. Patient was on Cardizem and flecainide when needed 3. Hypertension-blood pressure controlled, prescription was written for lisinopril on discharge 4. History of carcinoid tumor status post resection 5. Dyslipidemia patient was on Crestor prior to admission 6. BMI of 35.8 weight loss advised 7. DVT prophylaxis SC Lovenox Patient Problems: Active and Suspected Problems (Last Reviewed 04/12/19 @ 11:15 by Katy Elizondo PA-C) SBO (small bowel obstruction) (Acute) Preop cardiovascular exam (Acute) - Physical Exam General: Alert HEENT: Atraumatic Neck: Supple Psych/Mental Status: Normal Affect Vital Signs Temp Pulse Resp BP Pulse Ox 97.6 F L 93 16 148/103 H 96 04/18/19 12:11 04/18/19 12:11 04/18/19 12:11 04/18/19 12:11 04/18/19 12:11 Oxygen Flow Rate (L/min) 2 Oxygen Delivery Method Room Air Weight: 137.55 kg Body Mass Index (BMI) 35.8 Intake and Output for Last 24 Hours 04/16/19 04/17/19 04/18/19 23:59 23:59 23:59 Intake Total 3740 / 3740 2989 / 3589 1437 / 1437 Output Total 2975 / 2975 2900 / 3300 400 / 400 Balance 765 / 765 89 / 289 1037 / 1037 Discharge Diet: No Restrictions Discharge Activity: Return to Normal Activity Home Medications: Medications to take at Discharge aspirin 81 mg tablet,delayed release 81 mg PO QDAY 11/19/17 cholecalciferol (vitamin D3) 2,000 unit capsule 2,000 unit PO QDAY cap 11/19/17 vitamin B complex and vit C no.3 15 mg-10 mg-50 mg-5 mg-300 mg capsule 1 cap PO QDAY 11/19/17 vitamin E (dl, acetate) 1,000 unit capsule 1,000 unit PO QDAY 11/19/17 bupropion HCl XL 300 mg 24 hr tablet, extended release 300 mg PO QAM 11/23/17 rosuvastatin 20 mg tablet 20 mg PO QDAY #30 tab 05/24/18 diltiazem CD 120 mg capsule,extended release 24 hr 120 mg PO DAILY #30 cap 09/15/18 flecainide 100 mg tablet 300 mg PO ONCE PRN #30 tab 09/22/18 Lisinopril [Zestril] 10 mg PO DAILY #30 tab 04/18/19 Pantoprazole Sodium [Protonix] 40 mg PO DAILY #30 tab 04/18/19 Following Prescrptions Were Given to Patient: Pantoprazole Sodium [Protonix] 40 mg PO DAILY #30 tab Transmission Status: Pending to [id number] Lisinopril [Zestril] 10 mg PO DAILY #30 tab Transmission Status: Pending to [id number] Primary Care Physician: Nash Callahan MD [Primary Care Provider] - Please follow up with your Primary Care Physician in: in 1 week Please Follow Up With: Jeffery Horn MD When: in 1 week call for appointment Disposition: Home Minutes spent on discharge:: 35 Patient Condition:: Stable Medical Necessity - Tobacco Use Smoking Status: Never smoker Tobacco Use: Non-smoker Meaningful Use Info Meaningful Use Diagnoses (Choose all that apply): None applicable Code Visit Inpatient E&M: 89273 Disch Hosp
== END 2019-04-18 18:10 | disposition home or self-care (01) | DRG 337 ==
LOC: ED 05:05 → MS3 05:25
PROVIDERS: Hospitalist; Internal Medicine; Physician Assistant; Surgery; Admitting Provider Family Medicine; Emergency Provider Emergency Medicine; Family Provider Family Medicine; PCP Family Medicine; Referring Provider Family Medicine; Visit Provider Internal Medicine
PROC: 0DN80ZZ Release Small Intestine, Open Approach (ICD-10-PCS; CPT 44202; principal; 2019-04-13 13:55)
DX: K56.50 Intestinal adhesions [bands], unspecified as to partial versus complete obstruction (principal); I10 Essential (primary) hypertension; E78.5 Hyperlipidemia, unspecified; R33.9 Retention of urine, unspecified; G47.33 Obstructive sleep apnea (adult) (pediatric); Z53.31 Laparoscopic surgical procedure converted to open procedure; I48.0 Paroxysmal atrial fibrillation; K21.9 Gastro-esophageal reflux disease without esophagitis; K58.9 Irritable bowel syndrome, unspecified
CPT/HCPCS: 36415; 36569; 74018; 74176; 80048; 80053; 83605; 83735; 84132; 85025; 85027; 85610; 85730; 93005; 94640; 96361; 96372; 96374; 96375; 99285; J2997; J7030; A4216; J2405; J3490

== ENCOUNTER → 2019-04-25 11:06 | Outpatient (CLI) | payer BC, SELFPAY ==
[2019-04-21 10:36] VITALS: BMI 35.9
--- NOTE | 2019-04-25 11:14 | RAD_ITS ---
STUDY: X-RAY - ABDOMEN/PELVIS REASON FOR EXAM: Male, 43 years old. Abdominal pain. TECHNIQUE: AP supine and upright views of the abdomen and pelvis. COMPARISON: Comparison is made with prior study dated April 12, 2019. FINDINGS: Normal visualized lung bases. There are dilated loops of the small bowel with air-fluid levels. Gas is seen in the colon. This most likely represent either an early small bowel obstruction or incomplete small bowel obstruction. Follow-up is recommended. There is no demonstrated free abdominal air. The visualized liver, spleen and kidneys are grossly normal in size and morphology. Normal soft tissue structures. Normal visualized osseous structures. RAD/Abd Inc Decub and/or Erect IMPRESSION: Persistent small bowel dilatation with air-fluid levels. Gas is seen in the colon. Follow-up is recommended. Electronically Signed: Espinoza Simms, at 12:20 EDT , Service support ,
[2019-04-25 12:16] LABS: Absolute Lymphocyte Count 1.81 X10^3/ul (0.83-4.51); Absolute Neutrophil Count 7.7 X10^3/uL (2.0-7.7); Basophil# 0.03 X10^3/uL; Basophil% 0.3 % (0-1); Eosinophil# 0.08 X10^3/uL; Eosinophils% 0.7 % (0-5); Hematocrit 53.3 % (40-54); Hemoglobin 18.5 g/dl (13.0-16.5); Lymphocyte # 1.81 X10^3/ul (4.0); Lymphocyte % 16.8 % (19-41); Mean Corp Hgb Conc 34.7 g/gl (32-36); Mean Corpuscular Hgb 30.1 pg (27.0-32.0); Mean Corpuscular Volume 86.8 fL (80-94); Mean Platelet Vol. 10.9 fl (6.2-12.0); Monocyte# 1.12 X10^3/uL; Monocyte% 10.4 % (0-10); Neutrophil # 7.74 X10^3/uL (2.7-7.7); Neutrophil % 71.7 % (47-70); Platelet Count 290 K/mm3 (150-450); RBC Distribution Width CV 13.3 % (11.6-14.6); RBC Distribution Width SD 41.8 fl (35.1-43.9); Red Blood Count 6.14 M/mm3 (4.6-6.2); White Blood Count 10.8 K/mm3 (4.4-11.0)
[2019-04-25 12:30] LABS: ALB/GLOB Ratio 0.7 RATIO (0.9-2.4); AST(SGOT) 26 U/L (15-37); Alanine Aminotransfer ALT/SGPT 58 U/L (16-61); Albumin, Serum 3.8 g/dL (3.2-5.0); Alkaline Phosphatase 81 U/L (45-117); Anion Gap 11 (5-15); BUN 17 mg/dL (7-18); BUN/Creat Ratio 13.1 RATIO (10-20); Calcium,Total 9.6 mg/dL (8.5-10.1); Chloride 101 mmol/L (98-107); EST Glomerular Filtration Rate 63 mL/min (>60); Est Glom Filt Rate - Afr Amer 77 mL/min (>60); Globulin 5.1 g/dL (2.2-4.2); Glucose 122 mg/dL (74-106); Potassium 4.1 mmol/L (3.5-5.1); Protein, Total 8.9 g/dL (6.4-8.2); Sodium Level 134 mmol/L (136-145)
[2019-04-25 13:08] LABS: POSITIVE COUNT NO; POSITIVE DIFFERENTIAL NO; POSITIVE MORPHOLOGY NO
[2019-04-27 09:48] LABS: Pathologist Review Reviewed
== END ==
PROVIDERS: Family Provider Family Medicine; PCP Family Medicine; Referring Provider Surgery; Visit Provider Surgery
DX: R10.9 Unspecified abdominal pain (principal)
CPT/HCPCS: 36415; 74019; 80053; 83735; 85025

== ENCOUNTER → 2019-04-26 09:52 | Outpatient (CLI) | payer BC, SELFPAY ==
[2019-04-21 10:36] VITALS: BMI 35.9
--- NOTE | 2019-04-26 09:54 | RAD_ITS ---
STUDY: GASTROGRAFIN SMALL BOWEL FOLLOW-THROUGH EXAMINATION. REASON FOR EXAM: Male, 43 years old. History of bowel obstruction. Recent bowel surgery. TECHNIQUE: A scout sniper film was obtained. Following this, the patient ingested Gastrografin. A small bowel follow-through examination was then obtained. COMPARISON: None. FINDINGS: On the scout sniper film, there is evidence of a dilated small bowel loops with air-fluid levels. Gas is seen throughout the colon. The patient ingested Gastrografin. There is delayed transit through the small bowel. At 180 minutes, contrast is seen in the right hemicolon. Findings are in keeping with either an incomplete small bowel obstruction or ileus. RAD/Small Bowel Series Only IMPRESSION: Delayed small bowel transit with opacification of the right hemicolon 180 minutes following the ingestion of Gastrografin. Findings are suggestive of either an incomplete bowel obstruction versus ileus. Electronically Signed: Espinoza Simms, at 13:48 EDT , Service support ,
[2019-04-26] MEDS: 0.9% Normal Saline 1,000 ML 999 ML IV ×2 (13:50→14:47)
[2019-04-26 13:55] VITALS: BP 130/95; PULSE 111; RESP 18; BMI 30.3
[2019-04-26 14:44] VITALS: BP 138/88; PULSE 90; RESP 16; O2SAT 97
[2019-04-26 16:00] VITALS: BP 128/90; PULSE 86; RESP 18; TEMP 36.6; O2SAT 99
--- NOTE | 2019-04-26 16:43 | NURSING ---
1605 OKAY TO DISCHARGE PT HOME IF HE CAN TOLERATE DRINKING FLUIDS, TOLERATED WELL, STABLE VITAL SIGNS DISCHARGE WITH AND SON, PT TOLERATED WELL, W/C TO CAR
== END ==
PROVIDERS: Family Provider Family Medicine; PCP Family Medicine; Referring Provider Surgery; Visit Provider Surgery
DX: K56.609 Unspecified intestinal obstruction, unspecified as to partial versus complete obstruction (principal)
CPT/HCPCS: 74250; J7030; A4216

== ENCOUNTER → 2019-06-08 12:27 | Outpatient (CLI) | payer BC, SELFPAY ==
[2019-04-26 13:55] VITALS: BMI 30.3
[2019-06-08 14:19] LABS: Free T3 3.1 pg/mL (2.18-3.98); T4 Free Direct 0.91 ng/dL (0.76-1.46); Thyroid Stim Hormone (TSH) 1.05 uIU/mL (0.358-3.74)
[2019-06-11 15:07] LABS: Testosterone, Free 9.11 ng/dL (5.00-21.00)
[2019-06-12 10:13] LABS: Testosterone, % Free 3.35 % (1.50-4.20); Testosterone, Total 272 ng/dL (264-916)
== END ==
PROVIDERS: Family Provider Family Medicine; PCP Family Medicine; Referring Provider Family Medicine; Visit Provider Family Medicine
DX: I10 Essential (primary) hypertension (principal); R79.89 Other specified abnormal findings of blood chemistry
CPT/HCPCS: 36415; 84402; 84403; 84439; 84443; 84481

== ENCOUNTER → 2019-09-01 10:02 | Outpatient (CLI) | payer BC, SELFPAY ==
[2019-04-26 13:55] VITALS: BMI 30.3
[2019-09-01 12:33] LABS: AST(SGOT) 21 U/L (15-37); Absolute Lymphocyte Count 1.98 X10^3/uL (0.83-4.51); Absolute Neutrophil Count 3.6 X10^3/uL (2.0-7.7); Alanine Aminotransfer ALT/SGPT 37 U/L (16-61); Alkaline Phosphatase 56 U/L (45-117); Anion Gap 7 (5-15); BUN 16 mg/dL (7-18); BUN/Creat Ratio 16.1 RATIO (10-20); Basophil# 0.05 X10^3/uL; Basophil% 0.8 % (0-1); Chloride 107 mmol/L (98-107); Cholesterol 206 mg/dL (200); Creatinine, Serum 0.99 mg/dL (0.70-1.30); EST Glomerular Filtration Rate 86 mL/min (>60); Eosinophils% 3.1 % (0-5); Est Glom Filt Rate - Afr Amer 104 mL/min (>60); Glucose 92 mg/dL (74-106); Hematocrit 47.3 % (40-54); Hemoglobin 15.2 g/dL (13.0-16.5); High Density Lipoprotein 80 mg/dL; Lymphocyte # 1.98 X10^3/ul (4.0); Lymphocyte % 30.8 % (19-41); Mean Corp Hgb Conc 32.1 g/dL (32-36); Mean Corpuscular Hgb 30.9 pg (27.0-32.0); Mean Corpuscular Volume 96.1 fL (80-94); Mean Platelet Vol. 9.9 fl (6.2-12.0); Monocyte# 0.61 X10^3/uL; Monocyte% 9.5 % (0-10); NRBC Flagged by Analyzer 0 % (0-5); Neutrophil # 3.56 X10^3/uL (2.7-7.7); Neutrophil % 55.5 % (47-70); Platelet Count 221 K/mm3 (150-450); Potassium 4.2 mmol/L (3.5-5.1); RBC Distribution Width CV 12.9 % (11.6-14.6); RBC Distribution Width SD 45.3 fl (35.1-43.9); Red Blood Count 4.92 M/mm3 (4.6-6.2); Sodium Level 139 mmol/L (136-145); Triglycerides 189 mg/dL; Very Low Density Lipoprotein 38 mg/dL (5-40); White Blood Count 6.4 K/mm3 (4.4-11.0)
[2019-09-04 12:11] LABS: Testosterone, % Free 2.74 % (1.50-4.20); Testosterone, Free 3.64 ng/dL (5.00-21.00)
[2019-09-04 13:41] LABS: Immunoglobulin A 304 mg/dL (90-386); Testosterone, Total 133 ng/dL (264-916)
== END ==
PROVIDERS: Family Provider Family Medicine; PCP Family Medicine; Referring Provider Family Medicine; Visit Provider Family Medicine
DX: R79.89 Other specified abnormal findings of blood chemistry (principal); E78.00 Pure hypercholesterolemia, unspecified; L73.9 Follicular disorder, unspecified
CPT/HCPCS: 36415; 80053; 80061; 82784; 84402; 84403; 85025

== ENCOUNTER → 2020-02-23 11:53 | Outpatient (CLI) | payer BC, SELFPAY ==
[2019-04-26 13:55] VITALS: BMI 30.3
[2020-02-23 15:31] LABS: Absolute Lymphocyte Count 1.83 X10^3/uL (0.83-4.51); Absolute Neutrophil Count 3.3 X10^3/uL (2.0-7.7); Basophil# 0.05 X10^3/uL; Basophil% 0.8 % (0-1); Eosinophil# 0.23 X10^3/uL; Eosinophils% 3.8 % (0-5); Hematocrit 49.6 % (40-54); Hemoglobin 16.3 g/dL (13.0-16.5); Lymphocyte # 1.83 X10^3/ul (4.0); Lymphocyte % 30.2 % (19-41); Mean Corp Hgb Conc 32.9 g/dL (32-36); Mean Corpuscular Hgb 30.1 pg (27.0-32.0); Mean Corpuscular Volume 91.7 fL (80-94); Mean Platelet Vol. 9.5 fl (6.2-12.0); Monocyte# 0.66 X10^3/uL; Monocyte% 10.9 % (0-10); NRBC Flagged by Analyzer 0 % (0-5); Neutrophil # 3.28 X10^3/uL (2.7-7.7); Neutrophil % 54.1 % (47-70); Platelet Count 197 K/mm3 (150-450); RBC Distribution Width SD 49.9 fl (35.1-43.9); Red Blood Count 5.41 M/mm3 (4.6-6.2); White Blood Count 6.1 K/mm3 (4.4-11.0)
[2020-02-23 16:03] LABS: AST(SGOT) 28 U/L (15-37); Alanine Aminotransfer ALT/SGPT 45 U/L (16-61); Alkaline Phosphatase 46 U/L (45-117); Anion Gap 9 (5-15); BUN 15 mg/dL (7-18); BUN/Creat Ratio 13.8 RATIO (10-20); Calcium,Total 8.9 mg/dL (8.5-10.1); Chloride 102 mmol/L (98-107); Cholesterol 256 mg/dL (200); Creatinine, Serum 1.09 mg/dL (0.70-1.30); EST Glomerular Filtration Rate 77 mL/min (>60); Est Glom Filt Rate - Afr Amer 93 mL/min (>60); Free T3 3.5 pg/mL (2.18-3.98); Globulin 3.9 g/dL (2.2-4.2); Glucose 90 mg/dL (74-106); High Density Lipoprotein 69 mg/dL; PSA,Total- Diagnostic 0.84 ng/mL (0.0-4.0); Potassium 4.4 mmol/L (3.5-5.1); Protein, Total 7.9 g/dL (6.4-8.2); Sodium Level 135 mmol/L (136-145); T4 Free Direct 0.83 ng/dL (0.76-1.46); Thyroid Stim Hormone (TSH) 1.62 uIU/mL (0.358-3.74); Triglycerides 314 mg/dL; Very Low Density Lipoprotein 63 mg/dL (5-40)
[2020-03-01 00:53] LABS: Testosterone, Total 643
== END ==
PROVIDERS: PCP Family Medicine; Visit Provider Family Medicine
DX: E29.1 Testicular hypofunction (principal); E78.00 Pure hypercholesterolemia, unspecified; I48.0 Paroxysmal atrial fibrillation; I10 Essential (primary) hypertension
CPT/HCPCS: 36415; 80053; 80061; 83735; 84153; 84402; 84403; 84439; 84443; 84481; 85025

== ENCOUNTER → 2020-06-12 13:34 | Outpatient (CLI) | payer BC, SELFPAY ==
[2019-04-26 13:55] VITALS: BMI 30.3
--- NOTE | 2020-06-12 13:40 | RAD_ITS ---
STUDY: X-RAY - LUMBOSACRAL SPINE REASON FOR EXAM: Male, 44 years old. RIGHT HIP PAIN DOWN INTO RIGHT LEG TO AT TIMES. LOSS LUMBAR LORDOSIS. FHX SPINAL STENOSIS. NO KNOWN INJURY. TECHNIQUE: 5 view(s) of the lumbosacral spine were obtained including oblique views. COMPARISON: None FINDINGS: Normal lumbar lordosis. There is a minimal dextroscoliosis of the lumbar spine. There is normal alignment of the vertebrae. Normal vertebral bodies and endplates. Normal disc space heights. Normal bilateral sacral ala, sacroiliac joints, and visualized sacrum. Normal visualized soft tissue structures. RAD/L/S Spine w Bend Min 6 Vw IMPRESSION: Minimal degree of dextroscoliosis. Electronically Signed: Espinoza Simms, at 14:09 EDT , Service support ,
--- NOTE | 2020-06-12 13:41 | RAD_ITS ---
STUDY: X-RAY - PELVIS AND RIGHT HIP REASON FOR EXAM: Male, 44 years old. PAIN IN RIGHT HIP GETTING WORSE. NO KNOWN INJURY. TECHNIQUE: 3 views of the pelvis and hip. COMPARISON: None. FINDINGS: There is a non-specific bowel gas pattern. Normal visualized soft tissue structures. Normal bilateral iliac wings, sacroiliac joints and visualized sacrum. Normal bilateral superior and inferior pubic rami. Normal pubic symphysis. Normal bilateral ischial tuberosities. Widening of the femoral neck. Findings are suggestive of a right acetabular impingement. There is osteoarthritic spur formation of the acetabular rim. There is moderate articular joint space narrowing of the hip. RAD/HIP, UNI W/ Pelvis 2-3 Views IMPRESSION: Osteoarthritis of the right hip joint with evidence of femoral acetabular impingement. Electronically Signed: Espinoza Simms, at 14:08 EDT , Service support ,
== END ==
PROVIDERS: PCP Family Medicine; Referring Provider Family Medicine; Visit Provider Family Medicine
DX: M16.11 Unilateral primary osteoarthritis, right hip (principal)
CPT/HCPCS: 72114; 73502

== ENCOUNTER → 2020-07-11 08:01 | Outpatient (CLI) | payer BC, SELFPAY ==
[2019-04-26 13:55] VITALS: BMI 30.3
[2020-07-11 09:53] LABS: Absolute Lymphocyte Count 1.74 X10^3/uL (0.83-4.51); Absolute Neutrophil Count 4.3 X10^3/uL (2.0-7.7); Basophil# 0.06 X10^3/uL; Basophil% 0.8 % (0-1); Eosinophil# 0.33 X10^3/uL; Eosinophils% 4.5 % (0-5); Hematocrit 50.9 % (40-54); Hemoglobin 16.7 g/dL (13.0-16.5); Lymphocyte # 1.74 X10^3/ul (4.0); Lymphocyte % 23.9 % (19-41); Mean Corp Hgb Conc 32.8 g/dL (32-36); Mean Corpuscular Hgb 30.4 pg (27.0-32.0); Mean Corpuscular Volume 92.5 fL (80-94); Mean Platelet Vol. 10.6 fl (6.2-12.0); Monocyte# 0.85 X10^3/uL; Monocyte% 11.7 % (0-10); NRBC Flagged by Analyzer 0 % (0-5); Neutrophil # 4.27 X10^3/uL (2.7-7.7); Neutrophil % 58.8 % (47-70); Platelet Count 209 K/mm3 (150-450); RBC Distribution Width CV 13.5 % (11.6-14.6); White Blood Count 7.3 K/mm3 (4.4-11.0)
[2020-07-11 10:25] LABS: ALB/GLOB Ratio 0.9 RATIO (0.9-2.4); AST(SGOT) 18 U/L (15-37); Alanine Aminotransfer ALT/SGPT 28 U/L (16-61); Albumin, Serum 3.6 g/dL (3.2-5.0); Alkaline Phosphatase 49 U/L (45-117); Anion Gap 7 (5-15); BUN 12 mg/dL (7-18); BUN/Creat Ratio 11.5 RATIO (10-20); Calcium,Total 8.7 mg/dL (8.5-10.1); Chloride 108 mmol/L (98-107); Cholesterol 162 mg/dL (200); Creatinine, Serum 1.04 mg/dL (0.70-1.30); EST Glomerular Filtration Rate 81 mL/min (>60); Est Glom Filt Rate - Afr Amer 98 mL/min (>60); Globulin 3.8 g/dL (2.2-4.2); Glucose 91 mg/dL (74-106); High Density Lipoprotein 53 mg/dL; Magnesium 2.1 mg/dL (1.6-2.6); Potassium 3.8 mmol/L (3.5-5.1); Protein, Total 7.4 g/dL (6.4-8.2); Sodium Level 140 mmol/L (136-145); Thyroid Stim Hormone (TSH) 1.66 uIU/mL (0.358-3.74); Triglycerides 180 mg/dL; Very Low Density Lipoprotein 36 mg/dL (5-40)
[2020-07-15 01:39] LABS: Testosterone, % Free 4.86 % (1.50-4.20); Testosterone, Total > 1500 ng/dL (264-916)
== END ==
PROVIDERS: PCP Family Medicine; Referring Provider Family Medicine; Visit Provider Family Medicine
DX: I48.0 Paroxysmal atrial fibrillation (principal); R79.89 Other specified abnormal findings of blood chemistry
CPT/HCPCS: 36415; 80053; 80061; 83735; 84402; 84403; 84443; 85025

== ENCOUNTER → 2020-08-22 11:58 | Outpatient (CLI) | payer BC, SELFPAY ==
[2019-04-26 13:55] VITALS: BMI 30.3
== END ==
PROVIDERS: PCP Family Medicine; Referring Provider Family Medicine; Visit Provider Family Medicine
DX: R79.89 Other specified abnormal findings of blood chemistry (principal)
CPT/HCPCS: 36415; 84403

== ENCOUNTER → 2021-05-05 | Outpatient (CLI) | payer BC, SELFPAY ==
[2019-04-26 13:55] VITALS: BMI 30.3
== END | disposition home or self-care (01) ==
PROVIDERS: Visit Provider Family Medicine
DX: Z71.84 Encounter for health counseling related to travel (principal)
CPT/HCPCS: 87635; U0005; U0003

== ENCOUNTER → 2021-07-07 | Outpatient (CLI) | payer BC, SELFPAY | END | disposition home or self-care (01) | LOC: LABSPEC 16:30 | PROVIDERS: Visit Provider Family Medicine | DX: Z20.822 Contact with and (suspected) exposure to COVID-19 (principal) | CPT/HCPCS: 87635; U0005; U0003 ==

== ENCOUNTER 2021-07-15 09:27 | Emergency (ER) | payer BC, SELFPAY ==
[2021-07-15] VITALS (10 sets, daily range): BP systolic 104–132; BP diastolic 77–84; PULSE 71–155; RESP 16–18; TEMP 36.6; O2SAT 94–98; BMI 34.8
--- NOTE | 2021-07-15 09:40 | RAD_ITS ---
STUDY: X-RAY CHEST REASON FOR EXAM: Male, 46 years old. Chest pain TECHNIQUE: Single AP portable view of the chest. COMPARISON: Comparison is made with prior study dated 03/04/2014. FINDINGS: EKG electrodes are seen. The lungs are clear and expanded. There is no demonstrated pleural abnormality. Normal size heart. Normal mediastinum and andreas. Normal visualized pulmonary arteries. Normal visualized aortic arch and descending thoracic aorta. There are degenerative changes of the visualized thoracic spine. Normal visualized ribs, clavicles, and shoulders. There is no demonstrated abnormality of the visualized soft tissue structures of the upper abdomen. RAD/Chest 1 View (Portable) IMPRESSION: No acute abnormalities. Electronically Signed: Espinoza Simms MD at 10:38 EDT , Service support ,
--- NOTE | 2021-07-15 09:40 | EKG12_ITS ---
Test Reason : A-FIB Blood Pressure : / mmHG Vent. Rate : 140 BPM Atrial Rate : 308 BPM P-R Int : 000 ms QRS Dur : 092 ms QT Int : 302 ms P-R-T Axes : 079 008 028 degrees QTc Int : 461 ms Atrial flutter with variable A-V block Nonspecific ST abnormality Abnormal ECG Confirmed by LOCO PETERSON, LEONOR ([id number]), material expeditor JULIOCESAR FREEDMAN ([id number]) on 07/17/2021 8:39:50 AM Referred By: JEFFREY Confirmed By:LEONOR ADAN MD
--- NOTE | 2021-07-15 09:41 | EDS_ITS ---
HPI History of Present Illness Chief Complaint: Palpitations Informant: patient and spouse/S.O. Narrative Narrative: Patient is a 46-year-old male with history of proximal atrial fibrillation, hypertension, GERD, hyperlipidemia and IBS presenting from home for palpitations. Patient was driving home from the airport last night around 7 PM when he suddenly felt his heart start to race. He states it felt like he flipped into atrial fibrillation. He notes last night his heart rate was around 170. He took an extra dose of his 240 mg Cardizem and his heart rate went down to 120. When he got home he took 50 mg of Toprol. This morning his heart rate was in the 70s but when he started moving around he started to feel palpitations again. This morning he has had his 240 mg dose of Cardizem as well as 81 mg aspirin. 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 Patient has been cardioverted in the past successfully. He did return from [facility] last night. He notes he has mild intermittent lower extremity edema but it is controlled with compression stockings. He did have an episode of lightheadedness with exertion while on vacation but it resolved quickly with rest. Patient to be that to being out of shape. He denies a history of DVT or PE. He denies any chest pain or shortness of breath. No nausea or vomiting. No other complaints at this time. Prior similar symptoms: Yes [facility] Medical History (Updated 07/15/21 @ 14:[address] Carlota Esparza, DO) Carcinoid tumor of appendix Family history of hypertension Fatigue GERD (gastroesophageal reflux disease) History of Carcinoid Tumor History of small bowel obstruction Hx SBO Hyperlipidemia IBS (irritable bowel syndrome) CHEY (obstructive sleep apnea) Paroxysmal atrial fibrillation Home Medications aspirin 81 mg tablet,delayed release 81 mg PO QDAY 11/19/17 [History Last Taken 04/07/19 08:00 81 mg] vitamin B comp and C no.3 15 mg-10 mg-50 mg-5 mg-300 mg capsule 1 cap PO QDAY 11/19/17 [History Last Taken 04/07/19 08:00 1 cap] vitamin E (dl, acetate) 450 mg (1,000 unit) capsule 1,000 unit PO QDAY 11/19/17 [History Last Taken 04/07/19 08:00 1000 unit] flecainide 100 mg tablet 300 mg PO ONCE PRN #30 tab 09/22/18 [Rx Last Taken Unknown] lisinopril 10 mg PO DAILY #30 tab 04/18/19 [Rx Last Taken Unknown] diltiazem HCl 120 mg capsule,extended release 24 hr 120 mg PO DAILY #90 cap 04/30/19 [Rx Last Taken Unknown] Allergy/AdvReac Type Severity Reaction Status Date / Time MUSHROOMS AdvReac Other Uncoded 07/15/21 09:36 Family History Sister Hypertension Surgical History H/O right hemicolectomy Hx of appendectomy Social History Smoking Status: Never smoker ROS ROS ED Constitutional Constitutional ED: Denies chills, fatigue, fever(s) or weakness Eyes Eyes: Denies blurry vision ENT ENT ED: Denies rhinorrhea or sore throat Cardiovascular Cardiovascular: Reports palpitations and racing heartbeat; Denies chest pain Respiratory/Chest Respiratory/Chest: Denies cough, dyspnea, dyspnea on exertion or sputum Gastrointestinal Gastrointestinal: Denies abdominal pain, nausea or vomiting Genitourinary Genitourinary ED: Denies decreased urination or dysuria Musculoskeletal Musculoskeletal: Denies extremity pain Integumentary Denies new lesions or rash Neurologic Neurologic: Denies headache(s), paresthesias or weakness Psychiatric Psychiatric: Denies anxiety or depression Hematologic/Lymphatic Hematologic/Lymphatic: Denies easy bleeding or easy bruising EXAM Physical Exam Const Vital Signs: 07/15/21 09:31 07/15/21 09:55 07/15/21 10:28 Temperature 97.9 F Temperature Source Temporal Pulse Rate 155 H 98 Pulse Rate [1 (Initial Baseline)] Pulse Rate [6] Respiratory Rate 18 18 Respiratory Rate [1 (Initial Baseline)] Respiratory Rate [6] Blood Pressure 123/84 H 118/79 Blood Pressure [1 (Initial Baseline)] Blood Pressure [6] Blood Pressure Mean 97 92 Pulse Ox 98 95 Oxygen Delivery Method Room Air Room Air Room Air Oxygen Delivery Method [1 (Initial Baseline)] Oxygen Delivery Method [4] Oxygen Delivery Method [5] Oxygen Delivery Method [6] Oxygen Flow Rate (L/min) Oxygen Flow Rate (L/min) [1 (Initial Baseline)] Oxygen Flow Rate (L/min) [4] Oxygen Flow Rate (L/min) [5] Oxygen Flow Rate (L/min) [6] 07/15/21 11:00 07/15/21 12:00 07/15/21 12:30 Temperature Temperature Source Pulse Rate 78 79 76 Pulse Rate [1 (Initial Baseline)] Pulse Rate [6] Respiratory Rate 17 17 16 Respiratory Rate [1 (Initial Baseline)] Respiratory Rate [6] Blood Pressure 132/82 H 112/84 H 112/84 H Blood Pressure [1 (Initial Baseline)] Blood Pressure [6] Blood Pressure Mean 98 93 Pulse Ox 95 96 96 Oxygen Delivery Method Room Air Room Air Room Air Oxygen Delivery Method [1 (Initial Baseline)] Oxygen Delivery Method [4] Oxygen Delivery Method [5] Oxygen Delivery Method [6] Oxygen Flow Rate (L/min) Oxygen Flow Rate (L/min) [1 (Initial Baseline)] Oxygen Flow Rate (L/min) [4] Oxygen Flow Rate (L/min) [5] Oxygen Flow Rate (L/min) [6] 07/15/21 12:51 07/15/21 13:03 07/15/21 13:08 Temperature Temperature Source Pulse Rate 75 77 Pulse Rate [1 (Initial Baseline)] 82 Pulse Rate [6] 84 Respiratory Rate 18 18 Respiratory Rate [1 (Initial Baseline)] 18 Respiratory Rate [6] 18 Blood Pressure 110/79 104/83 H Blood Pressure [1 (Initial Baseline)] 127/77 H Blood Pressure [6] 108/80 Blood Pressure Mean Pulse Ox 96 94 Oxygen Delivery Method Nasal Cannula Room Air Oxygen Delivery Method [1 (Initial Baseline)] Nasal Cannula Oxygen Delivery Method [4] Nasal Cannula Oxygen Delivery Method [5] Nasal Cannula Oxygen Delivery Method [6] Nasal Cannula Oxygen Flow Rate (L/min) 2 Oxygen Flow Rate (L/min) [1 (Initial Baseline)] 2 Oxygen Flow Rate (L/min) [4] 2 Oxygen Flow Rate (L/min) [5] 2 Oxygen Flow Rate (L/min) [6] 2 07/15/21 13:13 Temperature Temperature Source Pulse Rate 71 Pulse Rate [1 (Initial Baseline)] Pulse Rate [6] Respiratory Rate 18 Respiratory Rate [1 (Initial Baseline)] Respiratory Rate [6] Blood Pressure 106/79 Blood Pressure [1 (Initial Baseline)] Blood Pressure [6] Blood Pressure Mean Pulse Ox 95 Oxygen Delivery Method Room Air Oxygen Delivery Method [1 (Initial Baseline)] Oxygen Delivery Method [4] Oxygen Delivery Method [5] Oxygen Delivery Method [6] Oxygen Flow Rate (L/min) Oxygen Flow Rate (L/min) [1 (Initial Baseline)] Oxygen Flow Rate (L/min) [4] Oxygen Flow Rate (L/min) [5] Oxygen Flow Rate (L/min) [6] Positive well nourished and well developed General Appearance ED: well developed HEENT Reports moist mucous membranes Negative for tenderness Eyes Negative for PERRL or EOMs intact bilaterally Neck supple and no JVD Chest Wall inspection of chest normal Resp normal respiratory effort and clear to auscultation bilaterally Resp Narrative: No crackles appreciated Cardio no murmurs Rate: tachycardic Rhythm: abnormal rhythm irregularly irregular GI normal to inspection, nondistended, normoactive bowel sounds Palpation: soft Back/Spine no CVA tenderness Extremity normal to inspection Extremity Narrative: 2+ bilateral DP pulses General Extremety ED: Negative for edema or tenderness General Extremity: Negative for edema Neuro oriented x3 Sensorium / Orientation: alert Motor Exam: Negative for general weakness Psych mental status grossly normal Skin no rashes or lesions noted and no wounds MDM MDM MDM Narrative Medical decision making narrative: Patient valuate with Madiha baker RVR. Prior to receiving Cardizem he converted into atrial flutter with rate control. Work-up largely normal. He is slightly hemoconcentrated with a hemoglobin of 19.2. He is given a liter of IV fluids. I discussed with cardiology who would like to proceed with cardioversion. Patient had sudden onset of symptoms less than 24 hours ago. Patient is a reliable informant. Patient is given a dose of Xarelto in 1 hour afterwards a cardioversion was performed. See procedure note. Siddhartha rogers will start on Eliquis which he has at home and continue his calcium channel isabelle. He is counseled on return precautions. He verbalizes agreement understanding this plan. Lab Data Labs: Laboratory Results - last 24 hr 07/15/21 07/15/21 07/15/21 09:20 09:20 09:20 WBC 9.1 RBC 6.11 Hgb 19.2 H* Hct 55.3 H MCV 90.5 MCH 31.4 MCHC 34.7 RDW Std Deviation 44.7 H RDW Coeff of Justyn 13.4 Plt Count 231 MPV 9.7 Immature Gran % (Auto) 0.200 Neut % (Auto) 64.8 Lymph % (Auto) 21.7 [place] % (Auto) 9.2 Eos % (Auto) 3.4 Baso % (Auto) 0.7 Absolute Neuts (auto) 5.9 Absolute Lymphs (auto) 1.97 Nucleated RBC % 0 Diff Path Review May foll PT 12.6 INR 1.0 D-Dimer Quant (PE/DVT) 0.32 Sodium 140 Potassium 3.9 Chloride 104 Carbon Dioxide 25.0 Anion Gap 11 BUN 15 Creatinine 1.17 Estim Creat Clear Calc 97.31 Est GFR (MDRD) Af Amer 86 Est GFR (MDRD) Non-Af 71 BUN/Creatinine Ratio 12.8 Glucose 125 H Calcium 9.3 Magnesium 2.2 Troponin I High Sens 30 B-Natriuretic Peptide TSH 1.36 07/15/21 09:20 WBC RBC Hgb Hct MCV MCH MCHC RDW Std Deviation RDW Coeff of Justyn Plt Count MPV Immature Gran % (Auto) Neut % (Auto) Lymph % (Auto) [place] % (Auto) Eos % (Auto) Baso % (Auto) Absolute Neuts (auto) Absolute Lymphs (auto) Nucleated RBC % Diff Path Review PT INR D-Dimer Quant (PE/DVT) Sodium Potassium Chloride Carbon Dioxide Anion Gap BUN Creatinine Estim Creat Clear Calc Est GFR (MDRD) Af Amer Est GFR (MDRD) Non-Af BUN/Creatinine Ratio Glucose Calcium Magnesium Troponin I High Sens B-Natriuretic Peptide 137.7 H TSH Radiography Diagnostic Testing: Radiology Impression Chest X-Ray 07/15/21 09:40 IMPRESSION: No acute abnormalities. Electronically Signed: Espinoza Simms MD at 10:38 EDT , Service support , Rhythm Strip Rhythm Strip: A-fib Rate: 140 Ectopy: None EKG Initial EKG: Interpretation: Atrial Fibrillation Comments: Atrial fibrillation with variable AV block at a rate of 140 Normal QRS Normal QTC Normal axis Normal ST segments Compared to prior EKG on 04/12/2019 patient is now in atrial fibrillation #2: Attestation: I personally reviewed and interpreted this EKG as follows: Interpretation: Atrial Flutter Comments: Atrial flutter with variable AV block at a rate of 87 Prior: Changed #3- s/p cardioversion: Attestation: I personally reviewed and interpreted this EKG as follows: Interpretation: Sinus Rhythm Comments: Normal sinus rhythm rate of 72 Normal axis Normal intervals Normal ST segments Prior: Changed Procedures Other Procedures Procedure(s): Cardioversion with procedural sedation Patient placed on continuous telemetry, end-tidal and pulse oximetry. Defibrillation pads placed anterior and posterior chest wall. After timeout and informed consent patient sedated with IV propofol. He is given multiple aliquots with a total 160 mg. Patient synchronized cardioverted with 50 J and has normal sinus rhythm afterwards. Patient tolerated procedure well with no immediate complications. Had mild transient hypoxia relieved with jaw thrust maneuver after procedure. Discharge Plan Triage Chief Complaint: Palpitations ED Provider: Carlota Esparza Dx/Rx/DC Orders Clinical Impression: Paroxysmal atrial fibrillation, Atrial fib/flutter, transient, Encounter for cardioversion procedure Instructions: ED AFIB Prescriptions: No Action aspirin 81 mg tablet,delayed release (DR/EC) 81 mg PO QDAY RF: 0 vitamin E (dl, acetate) 1,000 unit capsule 1,000 unit PO QDAY RF: 0 vitamin B comp and C no.3 [B Complex Plus Vitamin C] 92-67-42-5-300 mg capsule 1 cap PO QDAY RF: 0 lisinopril 10 MG tablet 10 mg PO DAILY Qty: 30 RF: 0 flecainide 100 mg tablet 300 mg PO ONCE PRN (Reason: atrial fibrillation) Qty: 30 RF: 3 diltiazem HCl [Cartia XT] 120 mg capsule,extended release 24hr 120 mg PO DAILY Qty: 90 RF: 3 Primary Care Provider: Nash Callahan Referrals: Nash Callahan MD [Primary Care Provider] - Activity Restrictions/Additional Instructions: Resume taking Eliquis. Continue your diltiazem. Follow-up with cardiology. Disposition Disposition: Home, Self Care Discharge Date/Time: 07/15/21 14:17
[2021-07-15] MEDS: 0.9% Normal Saline 1,000 ML 999 ML IV ×2 (10:00→13:09)
[2021-07-15 10:02] LABS: Absolute Lymphocyte Count 1.97 X10^3/uL (0.83-4.51); Absolute Neutrophil Count 5.9 X10^3/uL (2.0-7.7); Basophil# 0.06 X10^3/uL; Basophil% 0.7 % (0-1); Eosinophil# 0.31 X10^3/uL; Eosinophils% 3.4 % (0-5); Hematocrit 55.3 % (40-54); Lymphocyte # 1.97 X10^3/ul (0.83-4.51); Lymphocyte % 21.7 % (19-41); Mean Corp Hgb Conc 34.7 g/dL (32-36); Mean Corpuscular Hgb 31.4 pg (27.0-32.0); Mean Corpuscular Volume 90.5 fL (80-94); Mean Platelet Vol. 9.7 fl (6.2-12.0); Monocyte# 0.84 X10^3/uL; Monocyte% 9.2 % (0-10); NRBC Flagged by Analyzer 0 % (0-5); Neutrophil # 5.89 X10^3/uL (2.7-7.7); Neutrophil % 64.8 % (47-70); Platelet Count 231 K/mm3 (150-450); RBC Distribution Width CV 13.4 % (11.6-14.6); RBC Distribution Width SD 44.7 fl (35.1-43.9); Red Blood Count 6.11 M/mm3 (4.6-6.2); White Blood Count 9.1 K/mm3 (4.4-11.0)
[2021-07-15 10:06] LABS: Differential Indicated SCAN CRITERIA MET; Hemoglobin 19.2 g/dL (13.0-16.5)
[2021-07-15 10:08] LABS: Prothrombin Time (Protime)PT. 12.6 SECONDS (11.7-14.9)
--- NOTE | 2021-07-15 10:15 | EKG12_ITS ---
Test Reason : REPEAT Blood Pressure : / mmHG Vent. Rate : 087 BPM Atrial Rate : 308 BPM P-R Int : 000 ms QRS Dur : 120 ms QT Int : 364 ms P-R-T Axes : 230 -03 -16 degrees QTc Int : 438 ms Atrial flutter with variable A-V block Abnormal ECG Confirmed by LOCO PETERSON, LEONOR ([id number]), editorial writer JULIOCESAR FREEDMAN ([id number]) on 07/17/2021 8:40:11 AM Referred By: JEFFREY Confirmed By:LEONOR ADAN MD
[2021-07-15 10:19] LABS: Anion Gap 11 (5-15); BUN 15 mg/dL (7-18); BUN/Creat Ratio 12.8 RATIO (10-20); Calcium,Total 9.3 mg/dL (8.5-10.1); Chloride 104 mmol/L (98-107); Creatinine, Serum 1.17 mg/dL (0.70-1.30); D-Dimer Quantitative (DVT/PE) 0.32 FEU/ug/m (0.27-0.49); EST Glomerular Filtration Rate 71 mL/min (>60); Est Glom Filt Rate - Afr Amer 86 mL/min (>60); Estimated Creatinine Clearance 97.31 ml/min; Glucose 125 mg/dL (74-106); Magnesium 2.2 mg/dL (1.6-2.6); Potassium 3.9 mmol/L (3.5-5.1); Sodium Level 140 mmol/L (136-145); Thyroid Stim Hormone (TSH) 1.36 uIU/mL (0.358-3.74); Troponin-I HS 30 pg/mL (3.0-78.0)
[2021-07-15 10:25] LABS: BNP,B-Type NATRIURETIC PEPTIDE 137.7 pg/mL (0-100)
[2021-07-15] MEDS: Rivaroxaban 20 MG Tablet PO (11:14)
[2021-07-15] MEDS: Propofol 200 MG/20 ML Vial IV BOLUS (12:53)
--- NOTE | 2021-07-15 13:07 | EKG12_ITS ---
Test Reason : POST-CARDIOVERSION Blood Pressure : / mmHG Vent. Rate : 072 BPM Atrial Rate : 072 BPM P-R Int : 158 ms QRS Dur : 098 ms QT Int : 376 ms P-R-T Axes : 037 006 023 degrees QTc Int : 411 ms Normal sinus rhythm Normal ECG Confirmed by LOCO PETERSON, LEONOR ([id number]), publications editor JULIOCESAR FREEDMAN ([id number]) on 07/17/2021 8:42:28 AM Referred By: JEFFREY Confirmed By:LEONOR ADAN MD
--- NOTE | 2021-07-15 17:29 | PCM.CONS.C ---
Assessment & Plan Assessment/Plan (1) Atrial fib/flutter, transient: PLAN: The patient had recurrent atrial fibrillation/flutter. He has now undergone emergency department evaluation. He has now undergone synchronized biphasic DC cardioversion and regain sinus rhythm. He will continue medical therapy which will include rate control therapy with his diltiazem CD as well as the initiation of anticoagulant therapy with apixaban/Eliquis at 5 mg p.o. twice daily for a minimum of approximately 1 month. At that point in time if he has had no obvious recurrence of his PAF then he may be able to discontinue this medication and resume his aspirin therapy. In the interim if he has any obvious recurrent issues/events he will need to notify the office for further evaluation and care. (2) Hyperlipidemia: QUALIFIERS: Hyperlipidemia type: unspecified PLAN: He will continue risk factor evaluation/medical therapy as deemed appropriate. (3) Essential hypertension: PLAN: His blood pressure appears to be reasonably well controlled. He will continue medical management with adjustment of medications as deemed necessary. Addt'l Comments The patient's case was discussed and reviewed in person with the patient as well as Dr. Esparza. This note was generated using a voice recognition system and there may be incorrect words, spelling or punctuation that were not noted when reviewing the office note prior to saving. 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 The patient returned yesterday from a family trip to [place] and noted, as he was driving back from the airport in [place], [place], the recurrence of his atrial fibrillation/flutter. He felt somewhat dizzy. He stopped driving. He states he drank some fluids. He did have his diltiazem therapy with him and proceeded to take his medication. His completed the drive back to [place]. He states that he rested at home through the night, however, early this morning, he still noted concerns of his underlying atrial dysrhythmia. He was hoping to control this with rate control therapy as well as initiation of anticoagulant therapy. However, after he was up and active, his heart rate went up further and he felt somewhat diaphoretic. Thus he elected to present to the emergency department for further evaluation. In the emergency department he was noted to have no ongoing symptoms of concerning chest discomfort or difficulty breathing. There was no report of any near-syncope or syncope. He is sensitive to his atrial dysrhythmia and can tell when it starts and stops. He noted he had been in his atrial dysrhythmia less than 24 hours. He underwent evaluation with a troponin I level which was negative. His ECG demonstrated what appeared to be underlying atrial flutter. A chest x-ray demonstrated no acute cardiopulmonary abnormalities. A D-dimer was negative. TSH level was within normal range. As he has a history of paroxysmal atrial fibrillation and knows when his atrial fibrillation starts and stops and he had been in it less than 24 hours it was elected to proceed with further evaluation and care leading to synchronized biphasic DC cardioversion. Thus he was given Xarelto/rivaroxaban 20 mg p.o. x1. He subsequently underwent synchronized biphasic DC cardioversion under the direction of Dr. Esparza with propofol 180 mg IV push total. Synchronized biphasic DC cardioversion was performed with 50 J x 1 with notation of return to sinus rhythm. He was subsequently awake and alert with no obvious adverse events. [facility] Medical History (Updated 07/15/21 @ 14:[address] Carlota Esparza, DO) Carcinoid tumor of appendix Family history of hypertension Fatigue GERD (gastroesophageal reflux disease) History of Carcinoid Tumor History of small bowel obstruction Hx SBO Hyperlipidemia IBS (irritable bowel syndrome) CHEY (obstructive sleep apnea) Paroxysmal atrial fibrillation Home Medications aspirin 81 mg tablet,delayed release 81 mg PO QDAY 11/19/17 [History Last Taken 04/07/19 08:00 81 mg] vitamin B comp and C no.3 15 mg-10 mg-50 mg-5 mg-300 mg capsule 1 cap PO QDAY 11/19/17 [History Last Taken 04/07/19 08:00 1 cap] vitamin E (dl, acetate) 450 mg (1,000 unit) capsule 1,000 unit PO QDAY 11/19/17 [History Last Taken 04/07/19 08:00 1000 unit] flecainide 100 mg tablet 300 mg PO ONCE PRN #30 tab 09/22/18 [Rx Last Taken Unknown] lisinopril 10 mg PO DAILY #30 tab 04/18/19 [Rx Last Taken Unknown] diltiazem HCl 120 mg capsule,extended release 24 hr 120 mg PO DAILY #90 cap 04/30/19 [Rx Last Taken Unknown] Allergy/AdvReac Type Severity Reaction Status Date / Time MUSHROOMS AdvReac Other Uncoded 07/15/21 09:36 Family History Sister Hypertension Surgical History H/O right hemicolectomy Hx of appendectomy Social History Smoking Status: Never smoker ROS Constitutional Constitutional: Reports as per HPI Eyes Eyes: Reports as per HPI ENT HEENT: Reports as per HPI Cardiovascular Cardiovascular: Reports diaphoresis and palpitations Respiratory/Chest Respiratory/Chest: Reports as per HPI Gastrointestinal Gastrointestinal: Reports as per HPI Genitourinary Genitourinary: Reports as per HPI Musculoskeletal Musculoskeletal: Reports as per HPI Neurologic Neurologic: Reports as per HPI Physical Exam Const alert, oriented x3 and healthy appearing Orientation / Consciousness: awake HEENT normocephalic, head/scalp atraumatic and hearing grossly normal bilaterally Eyes PERRL, EOMs intact bilaterally and conjunctivae normal Neck full ROM, supple and no JVD Resp clear to auscultation bilaterally Cardio Rhythm: abnormal rhythm irregularly irregular Heart Sounds: S1 normal and S2 normal GI normal to inspection, nondistended, normoactive bowel sounds Extremity no pedal edema Skin no rashes or lesions noted Neuro oriented x3, moves all extremities, no focal motor deficits and no sensory deficits noted Psych mental status grossly normal Objective Data Vital Signs: Vital Signs Temp Pulse Resp BP Pulse Ox 97.9 F 71 18 106/79 95 07/15/21 09:31 07/15/21 13:13 07/15/21 13:13 07/15/21 13:13 07/15/21 13:13 Oxygen Flow Rate (L/min) [6] 2 Oxygen Flow Rate (L/min) [5] 2 Oxygen Flow Rate (L/min) [4] 2 Oxygen Flow Rate (L/min) [1 ( 2 Initial Baseline)] Oxygen Flow Rate (L/min) 2 Oxygen Delivery Method [6] Nasal Cannula Oxygen Delivery Method [5] Nasal Cannula Oxygen Delivery Method [4] Nasal Cannula Oxygen Delivery Method [1 ( Nasal Cannula Initial Baseline)] Oxygen Delivery Method Room Air Weight: 294 lb Body Mass Index (BMI) 34.8 Intake & Output: Intake and Output for Last 24 Hours 07/13/21 07/14/21 07/15/21 23:59 23:59 23:59 Intake Total 1999 Balance 1999 Lab / Micro Data Result Diagrams: 07/15/21 09:20 07/15/21 09:20 Labs: Laboratory Results - last 24 hr 07/15/21 09:20: WBC 9.1, RBC 6.11, Hgb 19.2 H*, Hct 55.3 H, MCV 90.5, MCH 31.4, MCHC 34.7, RDW Std Deviation 44.7 H, RDW Coeff of Justyn 13.4, Plt Count 231, MPV 9.7, Immature Gran % (Auto) 0.200, Neut % (Auto) 64.8, Lymph % (Auto) 21.7, [place] % (Auto) 9.2, Eos % (Auto) 3.4, Baso % (Auto) 0.7, Absolute Neuts (auto) 5.9, Absolute Lymphs (auto) 1.97, Nucleated RBC % 0, Diff Path Review February07/15/21 09:20: PT 12.6, INR 1.0, D-Dimer Quant (PE/DVT) 0.32 07/15/21 09:20: Sodium 140, Potassium 3.9, Chloride 104, Carbon Dioxide 25.0, Anion Gap 11, BUN 15, Creatinine 1.17, Estim Creat Clear Calc 97.31, Est GFR (MDRD) Af Amer 86, Est GFR (MDRD) Non-Af 71, BUN/Creatinine Ratio 12.8, Glucose 125 H, Calcium 9.3, Magnesium 2.2, Troponin I High Sens 30, TSH 1.36 07/15/21 09:20: B-Natriuretic Peptide 137.7 H Rhythm Strip Rhythm Strip: A-fib Rate: 140 Ectopy: None Cardiology Labs/Tests 07/15/21 09:20: WBC 9.1, RBC 6.11, Hgb 19.2 H*, Hct 55.3 H, MCV 90.5, MCH 31.4, MCHC 34.7, Plt Count 231, MPV 9.7, Immature Gran % (Auto) 0.200, Neut % (Auto) 64.8, Lymph % (Auto) 21.7, [place] % (Auto) 9.2, Eos % (Auto) 3.4, Baso % (Auto) 0.7, Absolute Neuts (auto) 5.9, Nucleated RBC % 0 07/15/21 09:20: PT 12.6, INR 1.0, D-Dimer Quant (PE/DVT) 0.32 07/15/21 09:20: Sodium 140, Potassium 3.9, Chloride 104, Carbon Dioxide 25.0, Anion Gap 11, BUN 15, Creatinine 1.17, Est GFR (MDRD) Af Amer 86, Est GFR (MDRD) Non-Af 71, BUN/Creatinine Ratio 12.8, Glucose 125 H, Calcium 9.3, Magnesium 2.2 07/15/21 09:20: B-Natriuretic Peptide 137.7 H Rhythm: Atrial flutter EKG: Atrial flutter ECHO: 12-13-2018 Interpretation Summary Left ventricular systolic function is normal. The estimated ejection fraction is 60 %. The global longitudinal strain = -20 % (normal). Borderline to mildly enlarged left atrium. Mild (1+) mitral valve insufficiency. Trivial tricuspid valve insufficiency. Right ventricular systolic pressure estimated to be 25 mmHg. No evidence for diastolic dysfunction. Radiography Diagnostic Testing: Radiology Impression Chest X-Ray 07/15/21 09:40 IMPRESSION: No acute abnormalities. Electronically Signed: Espinoza Simms MD at 10:38 EDT , Service support ,
[2021-07-16 13:31] LABS: Pathologist Review Reviewed
[2021-07-21 11:08] LABS: Testosterone, Free 54.96 ng/dL (5.00-21.00)
[2021-07-21 13:13] LABS: Testosterone, % Free 6.21 % (1.50-4.20); Testosterone, Total 885 ng/dL (264-916)
== END 2021-07-15 14:17 | disposition home or self-care (01) ==
PROVIDERS: Emergency Provider Emergency Medicine; PCP Family Medicine
DX: I48.0 Paroxysmal atrial fibrillation (principal); I48.92 Unspecified atrial flutter; I10 Essential (primary) hypertension; E78.5 Hyperlipidemia, unspecified; Z79.82 Long term (current) use of aspirin; Z79.899 Other long term (current) drug therapy
CPT/HCPCS: 92960; 36591; 71045; 80048; 83735; 83880; 84402; 84403; 84443; 84484; 85025; 85379; 85610; 93005; 96360; 96361; 99285; J7030; A4216

== ENCOUNTER 2021-10-30 08:45 | Emergency (ER) | payer BC, SELFPAY ==
[2021-10-30 08:46] VITALS: BP 137/85; PULSE 74; RESP 16; TEMP 36.4; O2SAT 94; BMI 35.2
--- NOTE | 2021-10-30 08:56 | EKG12_ITS ---
Test Reason : AFIB Blood Pressure : / mmHG Vent. Rate : 073 BPM Atrial Rate : 312 BPM P-R Int : 000 ms QRS Dur : 096 ms QT Int : 360 ms P-R-T Axes : 000 009 024 degrees QTc Int : 396 ms Atrial fibrillation Abnormal ECG Confirmed by LOCO PETERSON, LEONOR ([id number]), editor farm journal JULIOCESAR FREEDMAN ([id number]) on 11/03/2021 11:24:52 AM Referred By: GWEN Confirmed By:LEONOR ADAN MD
--- NOTE | 2021-10-30 09:11 | ED.VIS.CHEST ---
HPI History of Present Illness Chief Complaint: Palpitations Informant: patient Onset/Context/Timing Onset: Today Activity at onset: sudden Timing: Continuous Quality: Positive for - (Irregular and tachycardic) Location: Substernal and Left Chest Worsened By: Nothing Relieved By: Nothing Associated Symptoms: Positive for Diaphoresis, Cough, Lightheadedness and Palpitations; Negative for Nausea, Vomiting, Dyspnea, Fever and Acid Reflux Narrative Narrative: Patient presents with palpitations that began today. Patient states they began at approximately 0530 this morning. Patient has a history of paroxysmal atrial fibrillation and states this feels similar to that. Patient denies any shortness of breath. Patient does admit to some mild diaphoresis. Patient states he took his Cardizem and metoprolol at home with no improvement. Patient states he feels like his rate has improved but he still feels that he is in atrial fibrillation and his heart is irregular. Patient admits to some lightheadedness and a mild chronic cough. Prior Similar Symptoms: Yes and - (With previous episodes of atrial fibrillation) CVD Risk Factors: Positive for Hypertension and Hypercholesterolemia; Negative for Diabetes, Family History 1' </=55 and Smoking PE Risk Factors: Negative for Recent Travel/Surgery, Recent Immobilization, Prior DVT or PE, Cancer and OCP + Smoking + >/=35 [facility] Medical History (Updated 10/30/21 @ 11:[address] Nash Reynolds, ) Carcinoid tumor of appendix Family history of hypertension Fatigue GERD (gastroesophageal reflux disease) History of Carcinoid Tumor History of small bowel obstruction Hx SBO Hyperlipidemia IBS (irritable bowel syndrome) CHEY (obstructive sleep apnea) Paroxysmal atrial fibrillation Home Medications aspirin 81 mg tablet,delayed release 81 mg PO QDAY 11/19/17 [History Last Taken 04/07/19 08:00 81 mg] vitamin B comp and C no.3 15 mg-10 mg-50 mg-5 mg-300 mg capsule 1 cap PO QDAY 11/19/17 [History Last Taken 04/07/19 08:00 1 cap] vitamin E (dl, acetate) 450 mg (1,000 unit) capsule 1,000 unit PO QDAY 11/19/17 [History Last Taken 04/07/19 08:00 1000 unit] flecainide 100 mg tablet 300 mg PO ONCE PRN #30 tab 09/22/18 [Rx Last Taken Unknown] lisinopril 10 mg PO DAILY #30 tab 04/18/19 [Rx Last Taken Unknown] diltiazem HCl 120 mg capsule,extended release 24 hr 120 mg PO DAILY #90 cap 04/30/19 [Rx Last Taken Unknown] Allergy/AdvReac Type Severity Reaction Status Date / Time MUSHROOMS AdvReac Other Uncoded 10/30/21 08:47 Family History Sister Hypertension Surgical History H/O right hemicolectomy Hx of appendectomy Social History Smoking Status: Never smoker ROS ROS ED Constitutional Constitutional ED: Denies chills or fever(s) Eyes Eyes: Denies blurry vision or change in vision ENT ENT ED: Denies rhinorrhea or sore throat Cardiovascular Cardiovascular: Reports chest pain and palpitations Respiratory/Chest Respiratory/Chest: Reports cough; Denies dyspnea Gastrointestinal Gastrointestinal: Reports nausea; Denies abdominal pain or vomiting Genitourinary Genitourinary ED: Denies dysuria or hematuria Musculoskeletal Musculoskeletal: Denies back pain or neck pain Integumentary Denies abscess or rash Neurologic Neurologic: Reports headache(s); Denies weakness Allergic/Immunologic Allergic/Immunologic ED: Denies mouth swelling or urticaria EXAM Physical Exam Const Vital Signs: 10/30/21 08:46 10/30/21 09:59 10/30/21 10:13 Temperature 97.5 F L Temperature Source Temporal Pulse Rate 74 80 Pulse Rate [1 (Initial Baseline)] 79 Pulse Rate [2] 79 Pulse Rate [3] 60 Pulse Rate [4] 59 L Pulse Rate [5] 59 L Respiratory Rate 16 16 Respiratory Rate [1 (Initial Baseline)] 16 Respiratory Rate [2] 16 Respiratory Rate [3] 14 Respiratory Rate [4] 16 Respiratory Rate [5] 16 Blood Pressure 137/85 H Blood Pressure [1 (Initial Baseline)] 152/90 H Blood Pressure [2] 156/122 H Blood Pressure [3] 144/106 H Blood Pressure [4] 138/101 H Blood Pressure [5] 140/97 H Blood Pressure Mean 102 Pulse Ox 94 97 Oxygen Delivery Method Room Air Room Air Oxygen Delivery Method [1 (Initial Baseline)] Nasal Cannula Oxygen Delivery Method [2] Nasal Cannula Oxygen Delivery Method [4] Non-Rebreather Oxygen Delivery Method [5] Nasal Cannula Oxygen Flow Rate (L/min) Oxygen Flow Rate (L/min) [1 (Initial Baseline)] 5 Oxygen Flow Rate (L/min) [2] 5 Oxygen Flow Rate (L/min) [3] 6 Oxygen Flow Rate (L/min) [4] 15 Oxygen Flow Rate (L/min) [5] 3 10/30/21 10:28 10/30/21 10:45 10/30/21 11:17 Temperature Temperature Source Pulse Rate 57 L 57 L 52 L Pulse Rate [1 (Initial Baseline)] Pulse Rate [2] Pulse Rate [3] Pulse Rate [4] Pulse Rate [5] Respiratory Rate 18 18 18 Respiratory Rate [1 (Initial Baseline)] Respiratory Rate [2] Respiratory Rate [3] Respiratory Rate [4] Respiratory Rate [5] Blood Pressure 148/98 H 142/103 H 113/69 Blood Pressure [1 (Initial Baseline)] Blood Pressure [2] Blood Pressure [3] Blood Pressure [4] Blood Pressure [5] Blood Pressure Mean 116 Pulse Ox 94 94 95 Oxygen Delivery Method Nasal Cannula Nasal Cannula Oxygen Delivery Method [1 (Initial Baseline)] Oxygen Delivery Method [2] Oxygen Delivery Method [4] Oxygen Delivery Method [5] Oxygen Flow Rate (L/min) 2 Oxygen Flow Rate (L/min) [1 (Initial Baseline)] Oxygen Flow Rate (L/min) [2] Oxygen Flow Rate (L/min) [3] Oxygen Flow Rate (L/min) [4] Oxygen Flow Rate (L/min) [5] Positive well nourished, well developed and obese General Appearance ED: well developed Nutritional Appearance: obese HEENT normocephalic and atraumatic Eyes PERRL and EOMs intact bilaterally Neck supple and no JVD Resp normal respiratory effort and clear to auscultation bilaterally Effort and Inspection: Negative for respiratory distress Cardio regular rate and no murmurs Rhythm: abnormal rhythm irregularly irregular GI normal to inspection, nondistended, normoactive bowel sounds, soft to palpation, non-tender and non-distended Extremity normal to inspection General Extremety ED: Negative for edema or tenderness General Extremity: Negative for edema Neuro oriented x3, CN's II-XII intact bilaterally and no sensory deficits noted Sensorium / Orientation: awake and alert Motor Exam: strength 5/5 throughout Psych mental status grossly normal Heart Score History: Moderately Suspicious ECG: Normal Age: >45 - <65 years Risk Factors: 1 or 2 Risk Factors Troponin: </= Normal Limit Score: 3 MDM MDM MDM Narrative Medical decision making narrative: EKG was obtained. On my interpretation, it shows atrial fibrillation with a rate of 73. There are no acute ST or T wave changes. CBC and comprehensive metabolic profile were obtained and were within normal limits. High-sensitivity troponin was normal at 30. Patient has had similar episodes in the past and is agreeable to be sedated and cardioverted. Patient had no further questions regarding sedation and cardioversion. Patient was placed on continuous cardiac and pulse oximeter monitors. Patient was placed on oxygen. Patient was given a total of 180 mg of propofol. Patient was completely sedated. Patient was cardioverted with 200 J of synchronized cardioversion. Patient converted to a normal sinus rhythm. Patient did have some mild hypoxia down to 85% after the procedure. This improved with jaw thrust. Patient has a history of sleep apnea. Patient was placed on nonrebreather for a brief amount of time. Patient's oxygen saturation improved to 95%. Patient became more awake and alert and had no further episodes of hypoxia. Dr. Travis was present for the procedure. He recommended giving the patient 5 mg of Eliquis here. Patient was instructed to take 5 mg of Eliquis twice daily for 1 month. Patient states he has this at his office and will start taking it this evening. Repeat EKG was obtained and showed normal sinus rhythm with a rate of 61. There are no acute ST or T wave changes. PA interval, QRS interval, and QTc intervals are all normal. [place] is normal. Patient was instructed to return if worse in any way. Patient understood and was agreeable with the plan. All questions were answered. Lab Data Attestation: I reviewed the patient's lab results. Labs: Laboratory Results - last 24 hr 10/30/21 10/30/21 09:10 09:10 WBC 8.3 RBC 5.85 Hgb 17.7 H Hct 52.2 MCV 89.2 MCH 30.3 MCHC 33.9 RDW Std Deviation 44.4 H RDW Coeff of Justyn 13.5 Plt Count 233 MPV 9.7 Immature Gran % (Auto) 0.200 Neut % (Auto) 67.9 Lymph % (Auto) 18.2 L [place] % (Auto) 9.3 Eos % (Auto) 3.9 Baso % (Auto) 0.5 Absolute Neuts (auto) 5.6 Absolute Lymphs (auto) 1.51 Nucleated RBC % 0 Sodium 140 Potassium 4.0 Chloride 108 H Carbon Dioxide 27.0 Anion Gap 5 BUN 14 Creatinine 1.09 Estim Creat Clear Calc 104.45 Est GFR (MDRD) Af Amer 93 Est GFR (MDRD) Non-Af 77 BUN/Creatinine Ratio 12.8 Glucose 99 Calcium 8.9 Total Bilirubin 1.10 H AST 21 ALT 43 Alkaline Phosphatase 53 Troponin I High Sens 30 Total Protein 7.5 Albumin 3.7 Globulin 3.8 Albumin/Globulin Ratio 1.0 EKG Initial EKG: Interpretation: No Acute Injury Pattern and Atrial Fibrillation (73) Prior EKG tracings: available for review Prior: Changed (The atrial fibrillation is new to previous dated 07/15/21) Follow-up EKG: Attestation: I personally reviewed and interpreted this EKG as follows: Interpretation: Sinus Rhythm (61) and No Acute Injury Pattern Prior: Unchanged Discharge Plan Triage Chief Complaint: Palpitations ED Provider: Nash Reynolds Dx/Rx/DC Orders Clinical Impression: Paroxysmal atrial fibrillation Instructions: ED AFIB Prescriptions: No Action aspirin 81 mg tablet,delayed release (DR/EC) 81 mg PO QDAY RF: 0 vitamin E (dl, acetate) 1,000 unit capsule 1,000 unit PO QDAY RF: 0 vitamin B comp and C no.3 [B Complex Plus Vitamin C] [id number] mg capsule 1 cap PO QDAY RF: 0 lisinopril 10 MG tablet 10 mg PO DAILY Qty: 30 RF: 0 flecainide 100 mg tablet 300 mg PO ONCE PRN (Reason: atrial fibrillation) Qty: 30 RF: 3 diltiazem HCl [Cartia XT] 120 mg capsule,extended release 24hr 120 mg PO DAILY Qty: 90 RF: 3 Primary Care Provider: Nash aCllahan Referrals: Nash Callahan MD [Primary Care Provider] - As Needed Disposition Disposition: Home, Self Care Discharge Date/Time: 10/30/21 11:26
[2021-10-30 09:20] LABS: Absolute Lymphocyte Count 1.51 X10^3/uL (0.83-4.51); Absolute Neutrophil Count 5.6 X10^3/uL (2.0-7.7); Basophil# 0.04 X10^3/uL; Basophil% 0.5 % (0-1); Eosinophil# 0.32 X10^3/uL; Eosinophils% 3.9 % (0-5); Hematocrit 52.2 % (40-54); Hemoglobin 17.7 g/dL (13.0-16.5); Lymphocyte # 1.51 X10^3/ul (0.83-4.51); Lymphocyte % 18.2 % (19-41); Mean Corp Hgb Conc 33.9 g/dL (32-36); Mean Corpuscular Hgb 30.3 pg (27.0-32.0); Mean Corpuscular Volume 89.2 fL (80-94); Mean Platelet Vol. 9.7 fl (6.2-12.0); Monocyte# 0.77 X10^3/uL; Monocyte% 9.3 % (0-10); NRBC Flagged by Analyzer 0 % (0-5); Neutrophil # 5.62 X10^3/uL (2.7-7.7); Neutrophil % 67.9 % (47-70); Platelet Count 233 K/mm3 (150-450); RBC Distribution Width CV 13.5 % (11.6-14.6); RBC Distribution Width SD 44.4 fl (35.1-43.9); Red Blood Count 5.85 M/mm3 (4.6-6.2); White Blood Count 8.3 K/mm3 (4.4-11.0)
[2021-10-30 09:38] LABS: AST(SGOT) 21 U/L (15-37); Alanine Aminotransfer ALT/SGPT 43 U/L (16-61); Albumin, Serum 3.7 g/dL (3.2-5.0); Alkaline Phosphatase 53 U/L (45-117); Anion Gap 5 (5-15); BUN 14 mg/dL (7-18); BUN/Creat Ratio 12.8 RATIO (10-20); Calcium,Total 8.9 mg/dL (8.5-10.1); Chloride 108 mmol/L (98-107); Creatinine, Serum 1.09 mg/dL (0.70-1.30); EST Glomerular Filtration Rate 77 mL/min (>60); Est Glom Filt Rate - Afr Amer 93 mL/min (>60); Estimated Creatinine Clearance 104.45 ml/min; Globulin 3.8 g/dL (2.2-4.2); Glucose 99 mg/dL (74-106); Protein, Total 7.5 g/dL (6.4-8.2); Sodium Level 140 mmol/L (136-145); Troponin-I HS 30 pg/mL (3.0-78.0)
[2021-10-30] MEDS: Propofol 200 MG/20 ML Vial IV BOLUS (09:55)
[2021-10-30 09:59] VITALS: PULSE 80; RESP 16; O2SAT 97
[2021-10-30 10:13] VITALS: BP 138/101; BP 140/97; BP 144/106; BP 152/90; BP 156/122; PULSE 59; PULSE 60; PULSE 79; RESP 14; RESP 16; O2SAT 88; O2SAT 96; O2SAT 98
[2021-10-30 10:28] VITALS: BP 140/97; BP 148/98; PULSE 57; RESP 18; O2SAT 94; O2SAT 95
--- NOTE | 2021-10-30 10:37 | EKG12_ITS ---
Test Reason : CARDIOVERSION Blood Pressure : / mmHG Vent. Rate : 061 BPM Atrial Rate : 061 BPM P-R Int : 162 ms QRS Dur : 106 ms QT Int : 404 ms P-R-T Axes : 023 011 020 degrees QTc Int : 406 ms Normal sinus rhythm Normal ECG Confirmed by LOCO PETERSON, LEONOR ([id number]), magazine editor JULIOCESAR FREEDMAN ([id number]) on 11/03/2021 11:24:40 AM Referred By: BRENDA HIDALGO Confirmed By:LEONOR ADAN MD
[2021-10-30 10:45] VITALS: BP 142/103; PULSE 57; RESP 18; O2SAT 94
[2021-10-30] MEDS: APIXABAN 5 MG TABLET PO (10:51)
[2021-10-30 11:17] VITALS: BP 113/69; PULSE 52; RESP 18; O2SAT 95
--- NOTE | 2021-10-30 17:57 | CON.PCM.CA_ITS ---
Assessment & Plan Assessment/Plan (1) Paroxysmal atrial fibrillation: PLAN: He does have recurrence of his paroxysmal atrial fibrillation. His last event was in June 2021. He has been taking his medications as prescribed. This has included his calcium channel antagonist therapy with diltiazem. In the past he has been on anticoagulant therapy following his synchronized biphasic DC cardioversion events for approximately 1 month. He has not wanted to remain on long-term anticoagulant therapy if at all possi ble. At the present time, status post synchronized biphasic DC cardioversion he has returned to sinus rhythm. He will continue his rate control therapy. He will reinitiate anticoagulant therapy with apixaban/Eliquis at 5 mg p.o. twice daily for a minimum of 1 month. If he has no obvious recurrence of his atrial fibrillation after that he may be able to resume his aspirin therapy. However as he has had recurrence paroxysmal atrial fibrillation and/or flutter events requiring recurrent synchronized biphasic DC cardioversion (beginning in 2013 progressing to 2021) it was thought reasonable that he be considered for EP consultation for recommendations for ongoing medical therapy and/or the possibility of EPS/RFA. This was discussed with him and he was agreeable to this approach. (2) Hyperlipidemia: QUALIFIERS: Hyperlipidemia type: unspecified PLAN: He will continue his lipid-lowering therapy. (3) Essential hypertension: PLAN: He will continue his antihypertensive therapy. (4) CHEY (obstructive sleep apnea): PLAN: He will continue his CHEY/CPAP therapy. Addt'l Comments The patient's case was discussed and reviewed with the patient as well as Dr. Reynolds of the [facility] emergency department staff. This note was generated using a voice recognition system and there may be incorrect words, spelling or punctuation that were not noted when reviewing the office note prior to saving. 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 The patient contacted cardiology earlier this a.m. noting that he awoke in atrial fibrillation. This is despite taking his home medication with his calcium channel antagonist/diltiazem. He did attempt additional rate limiting medication with metoprolol tartrate at 50 mg p.o. x1. His rate did improve. However he remained in atrial fibrillation and he remains symptomatic with respect to his ongoing palpitations. He states he did not feel that he would be able to present himself to the office this day for continued patient care. Thus he presented to the [facility] emergency department for further evaluation. There he was found to be in atrial fibrillation with his ventricular rate appearing to come under better control. He did undergo laboratory profile. His potassium level was noted to be 4.0. However, based upon his ongoing symptoms it was elected to proceed, as it has been in the past, with synchronized biphasic DC cardioversion. This was performed by the [facility] emergency department team with sedation including propofol at 200 mg IV push total and a synchronized biphasic DC cardioversion with 200 J x 1. He subsequently returned to sinus rhythm. He noted resolution of his symptoms after returning to sinus rhythm. During his event he did not report any other concerning chest discomfort suspicious for angina pectoris. There was no episode suspicious for the development of acute CHF or pulmonary edema. He had no loss of consciousness. [facility] Medical History (Updated 10/30/21 @ 18:[address] Dago Travis MD) Carcinoid tumor of appendix Family history of hypertension Fatigue GERD (gastroesophageal reflux disease) History of Carcinoid Tumor History of small bowel obstruction Hx SBO Hyperlipidemia IBS (irritable bowel syndrome) CHEY (obstructive sleep apnea) CHEY (obstructive sleep apnea) Paroxysmal atrial fibrillation Home Medications aspirin 81 mg tablet,delayed release 81 mg PO QDAY 11/19/17 [History Last Taken 04/07/19 08:00 81 mg] vitamin B comp and C no.3 15 mg-10 mg-50 mg-5 mg-300 mg capsule 1 cap PO QDAY 11/19/17 [History Last Taken 04/07/19 08:00 1 cap] vitamin E (dl, acetate) 450 mg (1,000 unit) capsule 1,000 unit PO QDAY 11/19/17 [History Last Taken 04/07/19 08:00 1000 unit] flecainide 100 mg tablet 300 mg PO ONCE PRN #30 tab 09/22/18 [Rx Last Taken Unknown] lisinopril 10 mg PO DAILY #30 tab 04/18/19 [Rx Last Taken Unknown] diltiazem HCl 120 mg capsule,extended release 24 hr 120 mg PO DAILY #90 cap 04/30/19 [Rx Last Taken Unknown] Allergy/AdvReac Type Severity Reaction Status Date / Time MUSHROOMS AdvReac Other Uncoded 10/30/21 08:47 Family History Sister Hypertension Surgical History H/O right hemicolectomy Hx of appendectomy Social History Smoking Status: Never smoker ROS Constitutional Constitutional: Reports as per HPI Eyes Eyes: Reports as per HPI ENT HEENT: Reports as per HPI Cardiovascular Cardiovascular: Reports palpitations Respiratory/Chest Respiratory/Chest: Reports as per HPI Gastrointestinal Gastrointestinal: Reports as per HPI Genitourinary Genitourinary: Reports as per HPI Musculoskeletal Musculoskeletal: Reports as per HPI Physical Exam Const alert, oriented x3 and healthy appearing Orientation / Consciousness: awake HEENT normocephalic, head/scalp atraumatic and hearing grossly normal bilaterally Eyes PERRL, EOMs intact bilaterally and conjunctivae normal Neck full ROM, supple and no JVD Resp clear to auscultation bilaterally Cardio Rhythm: abnormal rhythm irregularly irregular Heart Sounds: S1 normal and S2 normal GI normal to inspection, nondistended, normoactive bowel sounds Extremity no pedal edema Skin no rashes or lesions noted Neuro oriented x3, moves all extremities, no focal motor deficits and no sensory deficits noted Psych mental status grossly normal Risk Stratification Risk Stratification Applicable: No Objective Data Vital Signs: Vital Signs Temp Pulse Resp BP Pulse Ox 97.5 F L 52 L 18 113/69 95 10/30/21 08:46 10/30/21 11:17 10/30/21 11:17 10/30/21 11:17 10/30/21 11:17 Oxygen Flow Rate (L/min) [5] 3 Oxygen Flow Rate (L/min) [4] 15 Oxygen Flow Rate (L/min) [3] 6 Oxygen Flow Rate (L/min) [2] 5 Oxygen Flow Rate (L/min) [1 ( 5 Initial Baseline)] Oxygen Flow Rate (L/min) 2 Oxygen Delivery Method [5] Nasal Cannula Oxygen Delivery Method [4] Non-Rebreather Oxygen Delivery Method [2] Nasal Cannula Oxygen Delivery Method [1 ( Nasal Cannula Initial Baseline)] Oxygen Delivery Method Nasal Cannula Weight: 297 lb 9.985 oz Body Mass Index (BMI) 35.2 Lab / Micro Data Result Diagrams: 10/30/21 09:10 10/30/21 09:10 Labs: Laboratory Results - last 24 hr 10/30/21 09:10: WBC 8.3, RBC 5.85, Hgb 17.7 H, Hct 52.2, MCV 89.2, MCH 30.3, MCHC 33.9, RDW Std Deviation 44.4 H, RDW Coeff of Justyn 13.5, Plt Count 233, MPV 9.7, Immature Gran % (Auto) 0.200, Neut % (Auto) 67.9, Lymph % (Auto) 18.2 L, [place] % (Auto) 9.3, Eos % (Auto) 3.9, Baso % (Auto) 0.5, Absolute Neuts (auto) 5.6, Absolute Lymphs (auto) 1.51, Nucleated RBC % 0 10/30/21 09:10: Sodium 140, Potassium 4.0, Chloride 108 H, Carbon Dioxide 27.0, Anion Gap 5, BUN 14, Creatinine 1.09, Estim Creat Clear Calc 104.45, Est GFR (MDRD) Af Amer 93, Est GFR (MDRD) Non-Af 77, BUN/Creatinine Ratio 12.8, Glucose 99, Calcium 8.9, Total Bilirubin 1.10 H, AST 21, ALT 43, Alkaline Phosphatase 53, Troponin I High Sens 30, Total Protein 7.5, Albumin 3.7, Globulin 3.8, [place] min/Globulin Ratio 1.0 Cardiology Labs/Tests 10/30/21 09:10: WBC 8.3, RBC 5.85, Hgb 17.7 H, Hct 52.2, MCV 89.2, MCH 30.3, MCHC 33.9, Plt Count 233, MPV 9.7, Immature Gran % (Auto) 0.200, Neut % (Auto) 67.9, Lymph % (Auto) 18.2 L, [place] % (Auto) 9.3, Eos % (Auto) 3.9, Baso % (Auto) 0.5, Absolute Neuts (auto) 5.6, Nucleated RBC % 0 10/30/21 09:10: Sodium 140, Potassium 4.0, Chloride 108 H, Carbon Dioxide 27.0, Anion Gap 5, BUN 14, Creatinine 1.09, Est GFR (MDRD) Af Amer 93, Est GFR (MDRD) Non-Af 77, BUN/Creatinine Ratio 12.8, Glucose 99, Calcium 8.9, Total Bilirubin 1.10 H Rhythm: Atrial fibrillation EKG: As noted above ECHO: 12-13-2018 Interpretation Summary Left ventricular systolic function is normal. The estimated ejection fraction is 60 %. The global longitudinal strain = -20 % (normal). Borderline to mildly enlarged left atrium. Mild (1+) mitral valve insufficiency. Trivial tricuspid valve insufficiency. Right ventricular systolic pressure estimated to be 25 mmHg. No evidence for diastolic dysfunction.
== END 2021-10-30 11:26 | disposition home or self-care (01) ==
PROVIDERS: Emergency Provider Emergency Medicine; PCP Family Medicine; Visit Provider Emergency Medicine
DX: I48.0 Paroxysmal atrial fibrillation (principal); G47.33 Obstructive sleep apnea (adult) (pediatric); E66.9 Obesity, unspecified
CPT/HCPCS: 80053; 84484; 85025; 93005; 99152; 99285; J7030; A4216

== ENCOUNTER 2021-11-11 10:34 | Emergency (ER) | payer BC, SELFPAY ==
[2021-11-11 10:35] VITALS: BP 138/83; PULSE 125; RESP 19; TEMP 37.1; O2SAT 98; BMI 35.5
--- NOTE | 2021-11-11 11:06 | EKG12_ITS ---
Test Reason : AFIB Blood Pressure : / mmHG Vent. Rate : 129 BPM Atrial Rate : 084 BPM P-R Int : 000 ms QRS Dur : 096 ms QT Int : 332 ms P-R-T Axes : 000 -01 004 degrees QTc Int : 486 ms Atrial fibrillation Abnormal ECG Confirmed by LOCO PETERSON, LEONOR ([id number]), assignment desk editor JULIOCESAR FREEDMAN ([id number]) on 11/12/2021 9:12:50 AM Referred By: SANDRA Confirmed By:LEONOR ADAN MD
--- NOTE | 2021-11-11 11:08 | EX.ED.DYSGE1 ---
HPI History of Present Illness Chief Complaint: Palpitations Narrative Narrative: Patient awoke a couple hours ago feeling like he is in A. fib again. Has a history of it and was cardioverted this past week here in the emergency department. He has always felt fluttering palpitations in his chest when he has been in it in the past. He was started on Eliquis last week and is referred to EP cardiology at [facility] and still awaiting evaluation. Taking no antidysrhythmic's. 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 Denies any angina, lightheadedness or near syncope, focal neurologic symptoms. He does have some mild dyspnea with exertion but only since the symptoms started a couple hours ago, which he has had with rapid A. fib in the past. [facility] Medical History Carcinoid tumor of appendix Family history of hypertension Fatigue GERD (gastroesophageal reflux disease) History of Carcinoid Tumor History of small bowel obstruction Hx SBO Hyperlipidemia IBS (irritable bowel syndrome) CHEY (obstructive sleep apnea) CHEY (obstructive sleep apnea) Paroxysmal atrial fibrillation Home Medications aspirin 81 mg tablet,delayed release 81 mg PO QDAY 11/19/17 [History Last Taken 04/07/19 08:00 81 mg] vitamin B comp and C no.3 15 mg-10 mg-50 mg-5 mg-300 mg capsule 1 cap PO QDAY 11/19/17 [History Last Taken 04/07/19 08:00 1 cap] vitamin E (dl, acetate) 450 mg (1,000 unit) capsule 1,000 unit PO QDAY 11/19/17 [History Last Taken 04/07/19 08:00 1000 unit] flecainide 100 mg tablet 300 mg PO ONCE PRN #30 tab 09/22/18 [Rx Last Taken Unknown] lisinopril 10 mg PO DAILY #30 tab 04/18/19 [Rx Last Taken Unknown] diltiazem HCl 120 mg capsule,extended release 24 hr 120 mg PO DAILY #90 cap 04/30/19 [Rx Last Taken Unknown] Allergy/AdvReac Type Severity Reaction Status Date / Time MUSHROOMS AdvReac Other Uncoded 11/11/21 10:36 Family History Sister Hypertension Surgical History H/O right hemicolectomy Hx of appendectomy Social History Smoking Status: Never smoker ROS ROS ED Constitutional Constitutional ED: Denies chills or fever(s) Eyes Eyes: Denies change in vision or diplopia ENT ENT ED: Denies rhinorrhea or sore throat Cardiovascular Cardiovascular: Reports as per HPI and palpitations; Denies chest pain or pedal edema Respiratory/Chest Respiratory/Chest: Reports dyspnea on exertion; Denies cough Gastrointestinal Gastrointestinal: Denies abdominal pain, diarrhea, nausea or vomiting Genitourinary Genitourinary ED: Denies dysuria or hematuria Musculoskeletal Musculoskeletal: Denies back pain or neck pain Integumentary Denies abscess or rash Neurologic Neurologic: Denies headache(s), paresthesias or weakness Psychiatric Psychiatric: Denies anxiety or suicidal thoughts EXAM Physical Exam Const Vital Signs: 11/11/21 10:35 11/11/21 10:37 11/11/21 11:41 Temperature 98.7 F Temperature Source Temporal Pulse Rate 125 H 112 H Respiratory Rate 19 H 96 H Respiratory Effort Normal Non-Labored Blood Pressure 138/83 H 147/99 H Blood Pressure Mean 101 115 Pulse Ox 98 13 Oxygen Delivery Method Room Air Nasal Cannula Oxygen Flow Rate (L/min) 2 11/11/21 11:50 11/11/21 12:11 11/11/21 13:05 Temperature Temperature Source Pulse Rate 103 H 85 77 Respiratory Rate 19 H 18 18 Respiratory Effort Blood Pressure 120/80 105/85 H Blood Pressure Mean 91 Pulse Ox 100 98 95 Oxygen Delivery Method Oxygen Flow Rate (L/min) Positive well nourished and well developed General Appearance ED: well developed and NAD HEENT Reports moist mucous membranes normocephalic and atraumatic Eyes PERRL and EOMs intact bilaterally Neck full ROM and supple Resp normal respiratory effort and clear to auscultation bilaterally Cardio no murmurs Rate: tachycardic Rhythm: abnormal rhythm irregularly irregular GI non-tender and non-distended Auscultation: normoactive bowel sounds Palpation: soft Back/Spine no CVA tenderness General Back: other FROM Extremity normal to inspection General Extremety ED: Negative for edema, pulses abnormal or tenderness General Extremity: Negative for edema or pulses abnormal Neuro oriented x3, CN's II-XII intact bilaterally and no sensory deficits noted Sensorium / Orientation: awake and alert Motor Exam: strength 5/5 throughout Skin no rashes or lesions noted and no wounds MDM MDM MDM Narrative Medical decision making narrative: Patient was consented for electrocardioversion, and as we prepared everything along with staff, the patient spontaneously cardioverted in the room prior to giving him any medications. He was observed for another hour and had no recurrence of atrial fibrillation. Repeat EKG is normal and as his old. Discussed with Dr. Travis who saw the patient, they formulated a plan and he will follow-up with EP cardiology at [facility] hopefully soon. EKG Initial EKG: Attestation: I personally reviewed and interpreted this EKG as follows: Interpretation: No Acute Injury Pattern, Atrial Fibrillation and Inverted T-Waves (III only) Prior EKG tracings: available for review Prior: Unchanged Follow-up EKG: Attestation: I personally reviewed and interpreted this EKG as follows: Interpretation: Sinus Rhythm and No Acute Injury Pattern Comments: Unchanged morphology and T waves except for rhythm Discharge Plan Triage Chief Complaint: Palpitations ED Provider: Igor Hadley Dx/Rx/DC Orders Clinical Impression: Paroxysmal atrial fibrillation Instructions: ED AFIB Prescriptions: No Action aspirin 81 mg tablet,delayed release (DR/EC) 81 mg PO QDAY RF: 0 vitamin E (dl, acetate) 1,000 unit capsule 1,000 unit PO QDAY RF: 0 vitamin B comp and C no.3 [B Complex Plus Vitamin C] 66-73-08-5-300 mg capsule 1 cap PO QDAY RF: 0 lisinopril 10 MG tablet 10 mg PO DAILY Qty: 30 RF: 0 flecainide 100 mg tablet 300 mg PO ONCE PRN (Reason: atrial fibrillation) Qty: 30 RF: 3 diltiazem HCl [Cartia XT] 120 mg capsule,extended release 24hr 120 mg PO DAILY Qty: 90 RF: 3 Primary Care Provider: Nash Callahan Referrals: Nash Callahan MD [Primary Care Provider] - Dago Travis MD [STAFF PHYSICIAN] - (as directed) Disposition Disposition: Home, Self Care
[2021-11-11 11:41] VITALS: BP 147/99; PULSE 112; RESP 96; O2SAT 13
[2021-11-11 11:50] VITALS: BP 120/80; PULSE 103; RESP 19; O2SAT 100
--- NOTE | 2021-11-11 12:07 | EKG12_ITS ---
Test Reason : POST CARDIOVERSION Blood Pressure : / mmHG Vent. Rate : 088 BPM Atrial Rate : 088 BPM P-R Int : 156 ms QRS Dur : 100 ms QT Int : 354 ms P-R-T Axes : 056 014 026 degrees QTc Int : 428 ms Normal sinus rhythm Normal ECG Confirmed by LOCO PETERSON, LEONOR ([id number]), medical editor JULIOCESAR FREEDMAN ([id number]) on 11/12/2021 9:19:54 AM Referred By: SANDRA Confirmed By:LEONOR ADAN MD
[2021-11-11 12:11] VITALS: BP 105/85; PULSE 85; RESP 18; O2SAT 98
--- NOTE | 2021-11-11 12:14 | ED.RN ---
VALTREX NOT HELD IN THIS HOSPITAL. VALTREX BROUGHT IN BY [facility] STAFF. THIS NURSE GAVE MEDICATION AT 1150.
[2021-11-11 13:05] VITALS: PULSE 77; RESP 18; O2SAT 95
[2021-11-11 13:32] VITALS: PULSE 81; RESP 18; O2SAT 95
== END 2021-11-11 13:32 | disposition home or self-care (01) ==
PROVIDERS: Emergency Provider Emergency Medicine; PCP Family Medicine; Visit Provider Emergency Medicine
DX: I48.0 Paroxysmal atrial fibrillation (principal); K21.9 Gastro-esophageal reflux disease without esophagitis; Z87.19 Personal history of other diseases of the digestive system; K58.9 Irritable bowel syndrome, unspecified; G47.33 Obstructive sleep apnea (adult) (pediatric); Z79.82 Long term (current) use of aspirin; Z79.899 Other long term (current) drug therapy
CPT/HCPCS: 93005; 96360; 96361; 99283; J7030; A4216

== ENCOUNTER 2021-11-27 06:09 | Outpatient (CLI) | payer BC, SELFPAY ==
--- NOTE | 2021-11-27 10:18 | STRESSREP_ITS ---
Stress Test Report Date: 11-27-2021 Procedure: Exercise tolerance test/imaging study Indications: Atrial fibrillation; antiarrhythmic medication therapy Consent: Per the patient Procedure: The patient exercised on a Gus protocol for 8 minutes and 30 seconds completing Stage II and 2 minutes and 30 seconds of Stage III achieving a peak heart rate of 150 bpm (87% predicted maximal heart rate) with a peak blood pressure 172/86 mmHg and a peak MET capacity of 10 METs. The baseline ECG demonstrated normal sinus rhythm. The peak exercise ECG demonstrated no obvious ECG changes. There were no cardiac dysrhythmias pretest, during exercise, or recovery. The functional capacity was considered good. There was no complaint of chest discomfort during exercise or recovery. The examination was discontinued secondary to dyspnea. Impression: 1. Technically adequate (percent predicted maximal heart rate greater than 85%) exercise tolerance test 2. Peak exercise ECG no obvious ECG changes 3. There were no cardiac dysrhythmias pretest, during exercise, or recovery 4. Nuclear images pending Myocardial perfusion imaging study: Technique: The patient was injected with 14.7 mCi of technetium 99m Cardiolite and subsequently rest SPECT Cardiolite nuclear imaging was obtained in the horizontal long, vertical long, and short axis views. The patient exercised on a Gus protocol for 8 minutes and 30 seconds completing Stage II and 2 minutes and 30 seconds of Stage III achieving a peak heart rate of 150 bpm (87% predicted maximal heart rate) with a peak blood pressure 172/86 mmHg and a peak MET capacity of 10 METs. The patient was injected with 44.9 mCi of technetium 99m Cardiolite and subsequently stress SPECT Cardiolite nuclear imaging was obtained in the horizontal long, vertical long, and short axis views. A gated Cardiolite study at peak stress was obtained. Interpretation: Rest and stress SPECT Cardiolite nuclear imaging status post realignment, normalization, and attenuation correction, demonstrates the appearance of an element of body motion during image acquisition at rest a small area of subtle diminished tracer uptake near the distal lateral apical segments which appears to improve/normalize following stress. There is end systolic thickening and brightening. The gated Cardiolite study demonstrates myocardial thickening and inward wall motion. The reported LVEF is 66%. Impression: 1. Rest and stress SPECT Cardiolite nuclear imaging demonstrates the appearance of an element of body motion during image acquisition and a small area of subtle diminished tracer uptake near the distal lateral apical segments which appears to improve/normalize following stress appearing compatible with shifting soft tissue attenuation/artifact with no myocardial perfusion changes considered diagnostic for associated stress-induced myocardial ischemia. 2. The gated Cardiolite study reports an LVEF of 66%. This note was generated with Quint[employer] software. It may contain incorrect words, spelling, and punctuation that were not noted in checking the note before signing.
== END 2021-11-27 23:59 | disposition home or self-care (01) ==
PROVIDERS: PCP Family Medicine; Referring Provider Internal Medicine Cardiovascular Disease; Visit Provider Internal Medicine Cardiovascular Disease
DX: I48.0 Paroxysmal atrial fibrillation (principal)
CPT/HCPCS: 78452; 93017; A9500; A4216

== ENCOUNTER → 2022-03-27 | Outpatient (CLI) | payer BC, SELFPAY ==
[2022-03-27 15:19] LABS: Absolute Lymphocyte Count 1.74 X10^3/uL (0.83-4.51); Basophil# 0.06 X10^3/uL; Basophil% 0.7 % (0-1); Eosinophil# 0.29 X10^3/uL; Eosinophils% 3.2 % (0-5); Hematocrit 52.4 % (40-54); Hemoglobin 17.5 g/dL (13.0-16.5); Lymphocyte # 1.74 X10^3/ul (0.83-4.51); Lymphocyte % 19.3 % (19-41); Mean Corp Hgb Conc 33.4 g/dL (32-36); Mean Corpuscular Hgb 30.4 pg (27.0-32.0); Mean Corpuscular Volume 91.1 fL (80-94); Mean Platelet Vol. 10.1 fl (6.2-12.0); Monocyte# 0.89 X10^3/uL; Monocyte% 9.9 % (0-10); NRBC Flagged by Analyzer 0 % (0-5); Neutrophil % 66.6 % (47-70); Platelet Count 219 K/mm3 (150-450); RBC Distribution Width SD 46.6 fl (35.1-43.9); RET-HE 35.2 pg (30-35); Red Blood Count 5.75 M/mm3 (4.6-6.2); Reticulocyte Count 1.52 % (0.5-1.5)
[2022-03-27 16:04] LABS: ALB/GLOB Ratio 1.1 RATIO (0.9-2.4); AST(SGOT) 36 U/L (15-37); Alanine Aminotransfer ALT/SGPT 73 U/L (16-61); Albumin, Serum 4.1 g/dL (3.2-5.0); Alkaline Phosphatase 58 U/L (45-117); Anion Gap 8 (5-15); BUN 12 mg/dL (7-18); BUN/Creat Ratio 10.9 RATIO (10-20); Calcium,Total 9.3 mg/dL (8.5-10.1); Chloride 103 mmol/L (98-107); EST Glomerular Filtration Rate 76 mL/min (>60); Est Glom Filt Rate - Afr Amer 92 mL/min (>60); Ferritin 94 ng/mL (26-388); Globulin 3.9 g/dL (2.2-4.2); Glucose 80 mg/dL (74-106); Potassium 4.3 mmol/L (3.5-5.1); Sodium Level 134 mmol/L (136-145)
[2022-03-30 20:14] LABS: Transferrin 302 mg/dL (177-329)
== END | disposition home or self-care (01) ==
LOC: MFPLAB 11:48
PROVIDERS: PCP Family Medicine; Referring Provider Family Medicine; Visit Provider Family Medicine
DX: D58.2 Other hemoglobinopathies (principal)
CPT/HCPCS: 36415; 80053; 82728; 84466; 85025; 85045

== ENCOUNTER → 2022-06-10 | Outpatient (CLI) | payer BC, SELFPAY ==
[2022-06-10 10:16] LABS: Absolute Lymphocyte Count 2.31 X10^3/uL (0.83-4.51); Absolute Neutrophil Count 3.8 X10^3/uL (2.0-7.7); Basophil# 0.04 X10^3/uL; Basophil% 0.5 % (0-1); Eosinophil# 0.33 X10^3/uL; Eosinophils% 4.5 % (0-5); Hematocrit 44.4 % (40-54); Hemoglobin 14.7 g/dL (13.0-16.5); Lymphocyte # 2.31 X10^3/ul (0.83-4.51); Lymphocyte % 31.3 % (19-41); Mean Corp Hgb Conc 33.1 g/dL (32-36); Mean Corpuscular Hgb 29.9 pg (27.0-32.0); Mean Corpuscular Volume 90.2 fL (80-94); Mean Platelet Vol. 9.7 fl (6.2-12.0); Monocyte# 0.85 X10^3/uL; Monocyte% 11.5 % (0-10); NRBC Flagged by Analyzer 0 % (0-5); Neutrophil # 3.82 X10^3/uL (2.7-7.7); Neutrophil % 51.8 % (47-70); Platelet Count 213 K/mm3 (150-450); RBC Distribution Width CV 13.4 % (11.6-14.6); RBC Distribution Width SD 44.7 fl (35.1-43.9); Red Blood Count 4.92 M/mm3 (4.6-6.2); White Blood Count 7.4 K/mm3 (4.4-11.0)
[2022-06-10 10:54] LABS: ALB/GLOB Ratio 0.9 RATIO (0.9-2.4); AST(SGOT) 25 U/L (15-37); Alanine Aminotransfer ALT/SGPT 54 U/L (16-61); Albumin, Serum 3.7 g/dL (3.2-5.0); Alkaline Phosphatase 59 U/L (45-117); Anion Gap 6 (5-15); BUN 15 mg/dL (7-18); BUN/Creat Ratio 13.3 RATIO (10-20); Chloride 106 mmol/L (98-107); Cholesterol 218 mg/dL (200); Creatinine, Serum 1.13 mg/dL (0.70-1.30); EST Glomerular Filtration Rate 73 mL/min (>60); Est Glom Filt Rate - Afr Amer 89 mL/min (>60); Globulin 3.9 g/dL (2.2-4.2); Glucose 94 mg/dL (74-106); High Density Lipoprotein 64 mg/dL; Potassium 4.1 mmol/L (3.5-5.1); Protein, Total 7.6 g/dL (6.4-8.2); Sodium Level 138 mmol/L (136-145); Thyroid Stim Hormone (TSH) 2.45 uIU/mL (0.358-3.74); Triglycerides 276 mg/dL; Very Low Density Lipoprotein 55 mg/dL (5-40)
== END | disposition home or self-care (01) ==
PROVIDERS: PCP Family Medicine; Referring Provider Family Medicine; Visit Provider Family Medicine
DX: I48.0 Paroxysmal atrial fibrillation (principal); E78.00 Pure hypercholesterolemia, unspecified; R79.89 Other specified abnormal findings of blood chemistry
CPT/HCPCS: 36415; 80053; 80061; 83735; 84403; 84443; 85025

== ENCOUNTER → 2022-11-24 | Outpatient (CLI) | payer BC, SELFPAY ==
[2022-11-24 12:28] LABS: Absolute Lymphocyte Count 1.73 X10^3/uL (0.83-4.51); Basophil# 0.03 X10^3/uL; Basophil% 0.5 % (0-1); Eosinophil# 0.18 X10^3/uL; Eosinophils% 2.8 % (0-5); Hemoglobin 14.8 g/dL (13.0-16.5); Lymphocyte # 1.73 X10^3/ul (0.83-4.51); Lymphocyte % 26.6 % (19-41); Mean Corp Hgb Conc 32.9 g/dL (32-36); Mean Corpuscular Hgb 30.1 pg (27.0-32.0); Mean Corpuscular Volume 91.5 fL (80-94); Mean Platelet Vol. 9.8 fl (6.2-12.0); Monocyte# 0.55 X10^3/uL; Monocyte% 8.5 % (0-10); NRBC Flagged by Analyzer 0 % (0-5); Neutrophil # 3.99 X10^3/uL (2.7-7.7); Neutrophil % 61.3 % (47-70); Platelet Count 243 K/mm3 (150-450); RBC Distribution Width CV 13.2 % (11.6-14.6); Red Blood Count 4.92 M/mm3 (4.6-6.2); White Blood Count 6.5 K/mm3 (4.4-11.0)
[2022-11-24 13:34] LABS: Anion Gap 9 (5-15); BUN 17 mg/dL (7-18); BUN/Creat Ratio 18.1 RATIO (10-20); Calcium,Total 9.3 mg/dL (8.5-10.1); Chloride 107 mmol/L (98-107); Creatinine, Serum 0.94 mg/dL (0.70-1.30); EST Glomerular Filtration Rate 91 mL/min (>60); Est Glom Filt Rate - Afr Amer 110 mL/min (>60); Glucose 92 mg/dL (74-106); Potassium 3.8 mmol/L (3.5-5.1); Sodium Level 140 mmol/L (136-145)
[2022-11-24 13:52] LABS: Magnesium 2.1 mg/dL (1.6-2.6)
[2022-11-24 14:02] LABS: Hemoglobin A1c 5.8 % (3.8-5.6)
== END | disposition home or self-care (01) ==
LOC: MFPLAB 09:58
PROVIDERS: Anesthesiology; PCP Family Medicine; Referring Provider Family Medicine; Visit Provider Specialist
DX: Z01.812 Encounter for preprocedural laboratory examination (principal)
CPT/HCPCS: 36415; 80048; 82040; 83036; 83735; 85025; 87077; 87081

== ENCOUNTER 2022-12-02 14:09 | Observation (INO) | payer BC, SELFPAY ==
[2022-12-02] VITALS (8 sets, daily range): BP systolic 106–136; BP diastolic 70–92; PULSE 61–78; RESP 16–18; TEMP 36.3–37.3; O2SAT 94–100; BMI 38.6
[2022-12-02] MEDS: Lactated Ringers 1,000 ML 999 ML IV (12:26)
[2022-12-02] MEDS: Acetaminophen 500 MG Tablet 1000 MG PO ×2 (12:28→22:05)
[2022-12-02] MEDS: Gabapentin 600 MG Tablet PO (12:29)
--- NOTE | 2022-12-02 13:46 | PCM.OPRPT ---
Report of Operation Date of Procedure: 12/02/22 Pre-Operative Diagnosis: Right hip primary osteoarthritis Post-Operative Diagnosis: Right hip primary osteoarthritis Surgery/Procedure Performed:: Right minimally invasive direct anterior total hip replacement Description of Surgical Findings:: Stable hip with equal leg length Surgeon: Rj Noble treasury associate: Gordo Morgan Type of Anesthesia: Spinal Anesthesiologist: Ritesh Ferrell Special Medications: 3 g Ancef, vancomycin, 1 g TXA at incision, 1 g TXA 1 minute lavage and wound closure, 10 mg Decadron, joint cocktail (5 mg Duramorph, 30 mL of 0.5% Ropivicaine, 1000 units of epinephrine, 30 mg of Toradol) Specimen's removed: Bony cuts Estimated Blood Loss (mL): 300 Fluids Replaced: 700 mL crystalloid Description of Procedure: Components used: 1. Accolade [address] femoral stem size 6 127? 2. Juliana trident 2 acetabular shell size 56 mm 3. Juliana X3 polyethylene F [address]. [address] Biolox delta 36mm, 7.5mm femoral head Brief history operative indications: 47 yo M who failed conservative measures for their hip osteoarthritis. X-rays were consistent with osteoarthritis including joint space narrowing, osteophyte formation and subchondral cysts. Total hip replacement was discussed with the patient with risks and benefits including but not limited to blood loss, DVTs, PEs, neurovascular damage, dislocation, general risks of anesthesia including loss of life. Patient demonstrated an understanding medical clearance is obtained the patient was consented for surgery. Procedure: On the date of procedure the patient's right hip was marked in the preoperative area. Patient was then taken back to the operating room where anesthesia assumed control of the C-spine and airway and administered anesthetic. Patient was transferred to the operating table and placed in the supine position. The hips were placed at the break of the bed and a sacral bump was placed. The right lower extremity was then prepped out in a sterile fashion using chlorhexidine while the surgeon scrubbed. The PA was vital in the positioning of the patient. Upon reentering the room the right lower extremity was draped in the standard orthopedic fashion and the incision was marked. A timeout was called and everyone agreed upon the side, the site, the procedure be performed, antibody given, and patient's identity. At this time incision was made through skin, subcutaneous tissue, and fat down to fascia. The fascia was then incised and the TFL was retracted laterally. A retractor was placed on the lateral border of the femoral neck. Attention was directed to the inferior portion of the approach and all crossing vessels were identified and appropriately coagulated. A retractor was then placed on the medial portion of the femoral neck. The anterior capsule was then cleared of all soft tissue and then H shaped capsulotomy was made. The retractors were then placed inside the capsule. The femoral neck was identified and a cleanup cut was made. At this time a power corkscrew was used to remove the femoral head. Attention was then turned toward the acetabulum where the soft tissues were appropriately retracted and the acetabulum was sequentially reamed to 56 mm. A 56 mm cup was then selected and impacted into place. Acetabular liner was impacted into place and locking mechanism was verified. The position of the acetabular cup was then verified under live fluoroscopy. Attention was then turned to the femur. Soft tissue releases on the medial and lateral femoral neck were appropriately done, the leg was externally rotated and lateralized. A Hurtado retractor was placed medially and proximally to the greater trochanter this allowed appropriate visualization and exposure of the femoral canal. Rongeour was then used to remove excess lateral bone. A canal finder and entry broach were used to open the proximal canal. Once we verified we were down the femoral canal we subsequently broached up to a size 6 femur. The appropriate neck was placed in the previously selected head was trialed with a 7.5 mm neck. Traction was pulled and the hip was reduced with internal rotation. Once it was appropriately reduced and stability was checked. There was minimal shuck, equal leg lengths and appropriate stability with hyperextension and external rotation as well as with 90? flexion and internal rotation. Fluoroscopy was then also used to verify the position of the components and leg lengths using the contralateral side for comparison. The trial components were then dislocated the proximal femur was again exposed and the components were removed from the wound. The final components were verified and opened. The wound was copiously irrigated out with normal saline. The acetabulum was checked for any residual debris. The final components were placed and impacted. Traction and internal rotation were again used to reduce the hip. After adequate reduction the hip remained stable with appropriate leg lengths. The final components were once again checked with live fluoroscopy and were found to be satisfactory. The wound was then copiously irrigated with normal saline once more, and hemostasis was obtained. Closure was then done using #1 Vicryl runner to close the fascia. A 2-0 vicryl interuppted sutures were used to close the subcutaneous skin. A 3-0 Monocryl and Steri-Strips were used for final skin closure. A Silverlon dressing was placed. Patient was awakened by anesthesia and transferred to the rbomoseen. Patient was then transferred to the PACU for recovery. During the course of the procedure the physician component assembler supervisor (PE) played a vital role. Their intimate knowledge of my steps in the procedure aided in safe and expedient completion of the procedure. The PE played a vital rolls in positioning particularly in obtaining the appropriate positioning of the sacral bump. The PE was also vital in the retraction of soft tissues during the exposure and especially the femoral work as this is a vital part of the procedure to prevent complications and fractures. The PE was also vital and protecting soft tissues during times of bony cuts and reaming. He also played a vital role in closure with my direct supervision. The PE was also important during reduction and dislocation of the joint and trials intraoperatively. Postoperative plan: Patient will get 24 hours postop antibiotics. Patient will get in-house physical therapy and will be weight-bear as tolerated. Patient will follow up in office in 2 weeks for a wound check and x-rays. Patient will resume Eliquis 5 mg twice daily tomorrow (atrial fibrillation). Complications No intraoperative complications Admit VTE Documentation VTE Present on Admission: No VTE Mechan Device Prophylaxis: SCD's and Thigh High SHIRLEY Hose VTE Pharm Prophylaxis ordered?: Yes
--- NOTE | 2022-12-02 14:20 | HIP_PTH ---
PATIENT: LEONOR SIN LOC: MS3 U#:[id number] AGE/SX: 47/M ROOM: MT315 RE12/02/[address]: Dr. Rj Noble MD : 1975 BED: 1 DIS: 12/03/2022 SPEC #: [id number] RECD: 12/03/22 11:59 STATUS: JESSICA REMargo #: [id number] BRITTA: 12/02/22 14:[address]: Rj Noble DEPT: SURGICAL PATHOLOGY RECD BY: Karine Lentz ENTERED: 12/03/22 12:36 SP TYPE: TOTAL HIP OTHR DR: MD Dr. Rg Godwin, DO Tissues: Hip, NOS Procedures: Decalcification bone/plaque Surgery Specimen Level IV HEADER OPERATION: ERAS, total hip anterior approach PRE-OP DIAGNOSIS: Unilateral secondary osteoarthritis of hip; trochanteric bursitis, joint derangements of right hip TISSUE SUBMITTED: Bone and soft tissue right hip MICROSCOPIC DIAGNOSIS Right hip bone and soft tissue, total hip replacement/resection: Femoral head with degenerative osteoarthritic changes. LIZ:hector 12/09/2022 MICROSCOPIC DESCRIPTION Slides are reviewed. GROSS DESCRIPTION Received is one container labeled with the patient's name and designated bone and soft tissue hip, right. The specimen consists of a cutler femoral head measuring 5.0 x 5.0 x 4.5 cm. Also present in the container is a portion of bone consistent with femoral neck measuring 5.0 x 3.5 x 2.0 cm. No soft tissue is identified. The articular surface displays prominent osteophyte formation and bone erosion. Communications Equipment Installer sections are submitted in two cassettes after decalcification. / LIZ:hector 12/03/2022 TC:5 [facility]: [id number], [id number]
[2022-12-02] MEDS: Lactated Ringers 1,000 ML 75 ML IV (14:50)
[2022-12-02] MEDS: Cefazolin 2 GM in 0.9% Normal Saline 100 ML IV (15:00)
[2022-12-02] MEDS: TXA 1000mg in NS100 100ml (IVPB at Incision) 660 MG IV (15:05)
[2022-12-02] MEDS: dexAMETHasone 10 MG/ML Vial IV (15:10)
--- NOTE | 2022-12-02 15:45 | RAD_ITS ---
STUDY: X-RAY - PELVIS AND RIGHT HIP REASON FOR EXAM: Male, 47 years old. RIGHT TOTAL ANTERIOR HIP TECHNIQUE: 1 views of the pelvis and hip. COMPARISON: None. FINDINGS: Intraoperative imaging provided for right total hip replacement. There is good alignment. RAD/Hip 1 view with Pelvis IMPRESSION: Intraoperative imaging provided for right total hip replacement. There is good alignment. Electronically Signed: Espinoza Simms MD at 9:39 EST ,
[2022-12-02] MEDS: TXA 1000mg in NS100 100ml (IVPB at Closure) 660 MG OPERA.SITE (16:20)
--- NOTE | 2022-12-02 17:17 | RAD_ITS ---
EXAM: XR RIGHT HIP WITH PELVIS WHEN PERFORMED, 2 OR 3 VIEWS CLINICAL INDICATION: Post Op -- AP both hips on single ayan/lateral of op hip PACU TECHNIQUE: Two or three views of the right hip with pelvis when performed. This report was created using [employer] report generation technology. COMPARISON: 06/12/2020 FINDINGS: BONES/JOINTS: There is a total right hip prosthesis in anatomic alignment. There is no evidence of loosening. No displaced fracture. No destructive or sclerotic lesions. Note that overlapping bowel shadows may however obscure fine detail. Sacroiliac joint is unremarkable. No widening of the pubic symphysis. SOFT TISSUES: Unremarkable. No soft tissue swelling or gas. RAD/Hip Min 2 Views (Portable) IMPRESSION: Right hip prosthesis in anatomic alignment. There is no osseous abnormality. Electronically Signed: Jewel Beckman MD at 18:02 EST ,
[2022-12-02] MEDS: Ensure Surgery 237 ML LIQUID PO (18:27)
--- NOTE | 2022-12-02 19:16 | PCM.PN.HOSP ---
Reason for Visit Reason for Visit: Diagnoses Encounter for other preprocedural examination (12/02/22) Subjective Subjective Patient was seen and examined today, he is postop right minimally invasive direct anterior total hip replacement due to primary osteoarthritis. At the time my examination tonight, patient has no complaints of any shortness of breath, chest discomfort, or significant surgical discomfort. Objective Data Objective Data Vital Signs: Vital Signs Temp Pulse Resp BP Pulse Ox O2 Del Method O2 Flow Rate 97.5 F L 61 18 119/70 96 Nasal Cannula 2 12/02/22 18:07 12/02/22 18:07 12/02/22 18:07 12/02/22 18:07 12/02/22 18:07 12/02/22 18:28 12/02/22 18:28 Oxygen Flow Rate (L/min) 2 Oxygen Delivery Method Nasal Cannula Weight: 144 kg Body Mass Index (BMI) 38.6 Intake & Output: Intake and Output for Last 24 Hours 11/30/22 12/01/22 12/02/22 23:59 23:59 23:59 Intake Total 1971 Balance 1971 Radiography Diagnostic Testing: Radiology Impression Hip X-Ray 12/02/22 17:17 IMPRESSION: Right hip prosthesis in anatomic alignment. There is no osseous abnormality. Electronically Signed: Jewel Beckman MD at 18:02 EST , Physical Exam Const alert, oriented x3, no apparent distress, average body habitus and healthy appearing General Appearance: cooperative, well kempt and well developed Orientation / Consciousness: awake, oriented to person, oriented to place and oriented to time HEENT normocephalic, head/scalp atraumatic and moist oral mucous membranes Eyes PERRL, EOMs intact bilaterally and conjunctivae normal Neck supple, no JVD, thyroid normal and no carotid bruits General: trachea midline Resp normal respiratory effort, no retractions, no use of accessory muscles and clear to auscultation bilaterally Auscultation: Negative for rales, rhonchi or wheezes Cardio regular rate, regular rhythm, S1 normal heart sound, S2 normal heart sound, no murmurs, no rub and no gallops GI normal to inspection, nondistended, normoactive bowel sounds, soft to palpation, non-tender and non-distended Extremity no clubbing, cyanosis or edema Skin no rashes or lesions noted General Skin Exam: no breakdown Neuro oriented x3, CN's II-XII intact bilaterally, no focal motor deficits and no sensory deficits noted Sensorium / Orientation: awake and alert Speech: speech normal Psych affect normal Assessment & Plan Assessment/Plan (1) CHEY (obstructive sleep apnea): PLAN: Plan 1. Obstructive sleep apnea-patient has his CPAP here which he can use #2 paroxysmal atrial fibrillation-patient usually is on Eliquis, this will be held for now, he is on rate limiting medication also which he will be getting in the hospital #3 hyperlipidemia-patient is on a statin #4 osteoarthritis of the right hip-status post minimally invasive right hip replacement postop day 0, patient will be seen by PT and OT, he will most probably be discharged home when he is stable Total clinical time spent by myself addressing the patient's medical problems, reviewing the data, and collaborating with patient's care team: 40 minutes Charges/Coding Visit Charges Inpatient E&M: 87624 Init Hosp L1
[2022-12-02] MEDS: dilTIAZem CD 240 MG Capsule PO (22:05)
[2022-12-02] MEDS: Lisinopril 40 MG Tablet PO (22:05)
[2022-12-02] MEDS: Senna/Docusate Sodium 1 Tablet 2 TABLET PO (22:05)
[2022-12-02] MEDS: Cefazolin 1 GM/50 ML BAG IV (22:06)
--- NOTE | 2022-12-02 22:27 | CPS ---
PEP not given per patient preference
[2022-12-03 02:34] VITALS: BP 114/69; PULSE 63; RESP 17; TEMP 36.6; O2SAT 97
[2022-12-03 06:18] LABS: Hematocrit 38.6 % (40-54); Hemoglobin 12.9 g/dL (13.0-16.5); Mean Corp Hgb Conc 33.4 g/dL (32-36); Mean Corpuscular Hgb 30.6 pg (27.0-32.0); Mean Corpuscular Volume 91.5 fL (80-94); Mean Platelet Vol. 9.3 fl (6.2-12.0); Platelet Count 193 K/mm3 (150-450); RBC Distribution Width CV 13.2 % (11.6-14.6); RBC Distribution Width SD 44.2 fl (35.1-43.9); Red Blood Count 4.22 M/mm3 (4.6-6.2); White Blood Count 13.4 K/mm3 (4.4-11.0)
[2022-12-03] MEDS: Acetaminophen 500 MG Tablet 1000 MG PO (06:22)
[2022-12-03] MEDS: APIXABAN 5 MG TABLET PO (06:23)
[2022-12-03] MEDS: Cefazolin 1 GM/50 ML BAG IV (06:23)
[2022-12-03 06:49] LABS: Anion Gap 8 (5-15); BUN 18 mg/dL (7-18); BUN/Creat Ratio 17.3 RATIO (10-20); Calcium,Total 8.7 mg/dL (8.5-10.1); Chloride 107 mmol/L (98-107); Creatinine, Serum 1.04 mg/dL (0.70-1.30); EST Glomerular Filtration Rate 81 mL/min (>60); Est Glom Filt Rate - Afr Amer 97 mL/min (>60); Estimated Creatinine Clearance 105.49 ml/min; Glucose 138 mg/dL (74-106); Potassium 4.6 mmol/L (3.5-5.1); Sodium Level 139 mmol/L (136-145)
[2022-12-03] MEDS: Senna/Docusate Sodium 1 Tablet 2 TABLET PO (08:11)
[2022-12-03] MEDS: Cholecalciferol (VIT D3) 25 MCG TABLET (1,000 UNITS) 50 MCG PO (08:11)
[2022-12-03] MEDS: Famotidine 20 MG Tablet PO (08:11)
[2022-12-03] MEDS: dilTIAZem CD 240 MG Capsule PO (08:11)
[2022-12-03] MEDS: buPROPion (XL) 150 MG TABLET.XL PO (08:11)
[2022-12-03] MEDS: Ensure Surgery 237 ML LIQUID PO (08:11)
[2022-12-03 08:30] VITALS: BP 117/79; PULSE 61; RESP 18; TEMP 36.6; O2SAT 97
[2022-12-03 09:32] LABS: Thyroid Stim Hormone (TSH) 0.56 uIU/mL (0.358-3.74)
--- NOTE | 2022-12-03 09:54 | PCM.PN.ORT ---
Subjective Subjective The patient was sitting in bedside chair upon examination. Patient denies any chest pain, shortness of breath, dizziness, lightheadedness, nausea or vomiting, or calf pain. Pain is controlled on medications. No adverse overnight events. Patient is only doing Tylenol for pain. He does not want any other pain medications. Patient tolerated therapy very well. He is very pleased with outcome of surgery. Does have some soreness in the right thigh. Objective Data Objective Data Vital Signs: Vital Signs Temp Pulse Resp BP Pulse Ox O2 Del Method O2 Flow Rate 97.8 F 61 18 117/79 97 Room Air 2 12/03/22 08:30 12/03/22 08:30 12/03/22 08:30 12/03/22 08:30 12/03/22 08:30 12/03/22 08:59 12/02/22 18:28 Oxygen Flow Rate (L/min) 2 Oxygen Delivery Method Room Air Weight: 144 kg Body Mass Index (BMI) 38.6 Intake & Output: Intake and Output for Last 24 Hours 12/01/22 12/02/22 12/03/22 23:59 23:59 23:59 Intake Total 2677 / 4677 2995 / 2995 Balance 2677 / 4677 2995 / 2995 Lab / Micro Data Result Diagrams: 12/03/22 05:55 12/03/22 05:55 Labs: Laboratory Results - last 24 hr 12/03/22 05:55: WBC 13.4 H, RBC 4.22 L, Hgb 12.9 L, Hct 38.6 L, MCV 91.5, MCH 30.6, MCHC 33.4, RDW Std Deviation 44.2 H, RDW Coeff of Justyn 13.2, Plt Count 193, MPV 9.3 12/03/22 05:55: Sodium 139, Potassium 4.6, Chloride 107, Carbon Dioxide 24.0, Anion Gap 8, BUN 18, Creatinine 1.04, Estim Creat Clear Calc 105.49, Est GFR (MDRD) Af Amer 97, Est GFR (MDRD) Non-Af 81, BUN/Creatinine Ratio 17.3, Glucose 138 H, Calcium 8.7, TSH 0.56 Radiography Diagnostic Testing: Radiology Impression Hip X-Ray 12/02/22 17:17 IMPRESSION: Right hip prosthesis in anatomic alignment. There is no osseous abnormality. Electronically Signed: Jewel Beckman MD at 18:02 EST , Physical Exam Narrative Vital signs stable and afebrile. SCDs and SHIRLEY hose are in place bilaterally Right thigh is soft and supple Patient is able to plantarflex and dorsiflex actively. Sensation is intact to light touch to saphenous, sural, superficial and deep peroneal, and tibial distribution. Dressing is clean dry and intact. There is some mild reactive erythema over the proximal incision area. Negative Homans bilaterally, negative signs and symptoms of DVT. Const alert, oriented x3 and no apparent distress Assessment & Plan Assessment/Plan (1) Status post total replacement of right hip: PLAN: 1. S/P right direct anterior total hip arthroplasty POD #1 2. Continue Pain Medications: Tylenol only. Patient did not want any prescription for narcotic. He was instructed to contact our office if Tylenol is not sufficient upon discharge. He voiced understanding agreement. 3. DVT Prophylaxis: Patient has resumed his Eliquis postoperatively 4. PT/OT: Weightbearing as tolerated with walker. Patient is doing very well from physical therapy standpoint 5. H & H: 12.9/38.6, asymptomatic. Postoperative anemia secondary to acute blood loss from surgery without any intra operative complications. 6. Reactive leukocytosis: Currently 13.4, afebrile. Patient did receive Decadron intraoperatively 7. Continue postoperative medical management per medicine 8. Encouraged Incentive Spirometry 9. Disposition: Orthopedically patient is doing very well. Plan will be for discharge home today as long as patient tolerates therapy, pain is well controlled, and medically stable. Patient is only requiring Tylenol for pain control. He does not want any further narcotic medication on discharge. I did discuss with patient anterior hip precautions and explained these to him. Also recommended to protect the proximal incision with 4 x 4 dressing for 4 weeks postoperatively once the Mepilex dressing has been removed. Patient does have outpatient physical therapy established. He will contact our office with any concerns or questions. He will follow-up per postop instructions. Stool softener for senna will be sent to [facility] outpatient pharmacy. I have reviewed the [place] Automated Rx Reporting System (OARRS) report for this patient for refill pattern and other prescriber involvement as part of the appropriate surveillance for the provision of acute and chronic controlled medications. The report was requested and reviewed on the date of this entry and was considered in the prescribing process. This dictation was created using voice recognition software. Phonetic and/or grammatical errors may exist.
--- NOTE | 2022-12-03 09:59 | DCINST_ITS ---
Discharge Instructions Diet Discharge Diet: No restrictions Activity Discharge Activity: May Not Drive (No driving for 6 weeks postoperatively.) May shower in (days): 1 (only if incision is dry and without drainage. Do NOT soak/submerge in tub/pool/mars/stream/hot tub.)) Ice area for (Minutes): 20 (Every 1-2 hours while [address] barrier between ice and skin.) Weight Bearing Status: Weight bearing as tolerated Keep extremity elevated above heart level: Operative Extremity Additional Activity Instructions:: Follow [facility] Post-op Instructions. Once postoperative dressing has been removed only use gentle soap and water over the incision. Do not use any ointments, Neosporin, salves, alcohol pads over the incision for 6 weeks postoperatively. Do not submerge underwater for 6 weeks postoperatively. Wear elastic stockings for 2 weeks. Do NOT use alcohol with narcotic pain medication. Do NOT make important decisions while taking narcotic medication. If you have problems with taking your medication (rash, itching, nausea, etc.) call the office at once. Dressing / Incision Call your doctor if your incision/area has: Continuous Slow Oozing, Sudden Increased Bleeding, Increased Pain/ Swelling, Increased Redness and Foul Smelling Discharge Call your doctor if you observe: Fever of 101 or Higher, Shortness of breath, Chest pain, Calf discomfort and Uncontrolled pain Remove Dressing in: 4 days (Okay to remove dressing on December 07, 2022. After removal of dressing used 4 x 4 gauze pad to protect the proximal incision for 4 weeks postoperatively.) Additional Dressing/Incision Instructions:: Follow [facility] Post-op Instructions. Once postoperative dressing has been removed, only use gentle soap and water over the incision. Do not use any ointments, Neosporin, salves, alcohol pads over the incision for 6 weeks postoperatively. Do not submerge underwater for 6 weeks postoperatively. Continue with SHIRLEY hose/elastic stockings for 2 weeks postoperatively. May remov e at nighttime but needs to be placed back on the leg during the day. Do NOT use alcohol with narcotic pain medication. Do NOT make important decisions while taking narcotic medication. If you have problems with taking your medication (rash, itching, nausea, etc.) call the office at once. Follow Up Care Test Results: Test results from this visit will be discussed in further detail at your follow- up appointment, if applicable. Discharge Plan Admission Admit Date/Time: 12/02/22 14:09 Attending Provider: Rj Noble Primary Care Provider: Nash Callahan Consulting Providers: Rg Akbar Discharge Orders/Prescriptions Prescriptions: New acetaminophen 500 mg Tablet 1,000 mg PO Q8 Qty: 0 0RF Rx Instructions: Do not take more than 3000 mg Tylenol in a 24-hour period. Continued diltiazem HCl 240 mg capsule,extended release 24hr 240 mg PO BID lisinopril 40 mg tablet 40 mg PO QHS rosuvastatin 20 mg tablet 20 mg PO DAILY Eliquis 5 mg tablet 5 mg PO BID bupropion HCl [Wellbutrin XL] 150 mg tablet extended release 24 hr 150 mg PO QAM cholecalciferol (vitamin D3) [Vitamin D3] 50 mcg (2,000 unit) Capsule 50 mcg PO DAILY Referrals / Follow Up: Physical,Therapy [Other] - 12/04/22 11:00 am Nash Callahan MD [Primary Care Provider] - Gordo Morgan PA-C [Med Staff - [facility]] - 12/17/22 2:00 pm Disposition Disposition (needs filled in before D/C Order can be placed): Home, Self Care
--- NOTE | 2022-12-03 10:25 | CM.UR ---
JARAD HELTON DC Planning Assessment: Face to Face with patient for initial transition planning/care coordination assessment. JARAD HELTON introduced self and role at [facility], pt voices understanding. Pt alert, Ox4, sitting up in chair. Pt states he has all needed DME at home including a shower chair and walker, has an outpt tx appointment scheduled for tomorrow and denies any discharge needs or concerns. Pt's RN at bedside to provide discharge instructions. Aman Gonzalez RN CM ?
--- NOTE | 2022-12-03 10:35 | PHA.DC.MR ---
Pharmacy Service has performed discharge medication reconciliation for this patient. The patient's discharge medication list was reviewed for discrepancies and discrepancies were resolved. Home Medications apixaban 5 mg tablet (Eliquis) 5 mg PO BID 03/03/22 diltiazem HCl 240 mg capsule,extended release 24 hr 240 mg PO BID 03/03/22 lisinopril 40 mg tablet 40 mg PO QHS 03/03/22 rosuvastatin 20 mg tablet 20 mg PO DAILY 03/03/22 bupropion HCl 150 mg 24 hr tablet, extended release (Wellbutrin XL) 150 mg PO QAM 09/15/22 cholecalciferol (vitamin D3) 50 mcg (2,000 unit) capsule (Vitamin D3) 50 mcg PO DAILY 11/18/22 acetaminophen 500 mg tablet 1,000 mg PO Q8 #0 tabs 12/03/22
== END 2022-12-03 10:36 | disposition home or self-care (01) ==
LOC: SDC 15:56 → MS3 15:56
PROVIDERS: Admitting Provider Specialist; PCP Family Medicine; Referring Provider Specialist; Visit Provider Specialist
PROC: (CPT 27284; principal; 2022-12-02 13:55)
DX: M16.11 Unilateral primary osteoarthritis, right hip (principal); I48.0 Paroxysmal atrial fibrillation; G47.33 Obstructive sleep apnea (adult) (pediatric); Z79.899 Other long term (current) drug therapy; E78.00 Pure hypercholesterolemia, unspecified; I10 Essential (primary) hypertension; Z87.891 Personal history of nicotine dependence; Z79.01 Long term (current) use of anticoagulants; M70.61 Trochanteric bursitis, right hip; M24.851 Other specific joint derangements of right hip, not elsewhere classified; M76.31 Iliotibial band syndrome, right leg; K21.9 Gastro-esophageal reflux disease without esophagitis; F32.A Depression, unspecified
CPT/HCPCS: 27130; 01214; 36415; 73501; 73502; 76000; 80048; 84443; 85027; 88305; 88311; 94668; 96365; 96366; 97162; 97166; 99221; 99252; C1776; J7040; J7120; G0378; G0463; J2405; J3475

== ENCOUNTER → 2023-01-11 | Outpatient (CLI) | payer BC, SELFPAY ==
[2023-01-11 10:15] LABS: Absolute Lymphocyte Count 1.59 X10^3/uL (0.83-4.51); Basophil# 0.04 X10^3/uL; Basophil% 0.7 % (0-1); Eosinophil# 0.24 X10^3/uL; Eosinophils% 4.4 % (0-5); Lymphocyte # 1.59 X10^3/ul (0.83-4.51); Lymphocyte % 29.2 % (19-41); Mean Corp Hgb Conc 31.7 g/dL (32-36); Mean Corpuscular Hgb 29.8 pg (27.0-32.0); NRBC Flagged by Analyzer 0 % (0-5); Neutrophil # 2.97 X10^3/uL (2.7-7.7); Neutrophil % 54.5 % (47-70); Platelet Count 206 K/mm3 (150-450); RBC Distribution Width CV 13.6 % (11.6-14.6); Red Blood Count 4.36 M/mm3 (4.6-6.2); White Blood Count 5.5 K/mm3 (4.4-11.0)
[2023-01-11 10:44] LABS: ALB/GLOB Ratio 1.1 RATIO (0.9-2.4); AST(SGOT) 44 U/L (15-37); Alanine Aminotransfer ALT/SGPT 97 U/L (16-61); Albumin, Serum 3.8 g/dL (3.2-5.0); Alkaline Phosphatase 65 U/L (45-117); Anion Gap 5 (5-15); BUN 19 mg/dL (7-18); BUN/Creat Ratio 19.2 RATIO (10-20); CRP < 2.90 mg/L (0.0-3.0); Calcium,Total 9.3 mg/dL (8.5-10.1); Chloride 108 mmol/L (98-107); Creatinine, Serum 0.99 mg/dL (0.70-1.30); EST Glomerular Filtration Rate 85 mL/min (>60); Est Glom Filt Rate - Afr Amer 103 mL/min (>60); Globulin 3.6 g/dL (2.2-4.2); Glucose 111 mg/dL (74-106); Potassium 4.2 mmol/L (3.5-5.1); Protein, Total 7.4 g/dL (6.4-8.2); Sodium Level 140 mmol/L (136-145)
[2023-01-14 10:08] LABS: Testosterone, Free 5.49 ng/dL (5.00-21.00)
[2023-01-14 13:05] LABS: Testosterone, % Free 2.26 % (1.50-4.20); Testosterone, Total 243 ng/dL (264-916)
== END | disposition home or self-care (01) ==
LOC: MFPLAB 08:02
PROVIDERS: PCP Family Medicine; Visit Provider Family Medicine
DX: M25.551 Pain in right hip (principal); R79.89 Other specified abnormal findings of blood chemistry
CPT/HCPCS: 36415; 80053; 84402; 84403; 85025; 86140

== ENCOUNTER → 2023-03-23 | Outpatient (CLI) | payer BC, SELFPAY ==
[2023-03-23 12:37] LABS: Absolute Lymphocyte Count 1.57 X10^3/uL (0.83-4.51); Absolute Neutrophil Count 3.6 X10^3/uL (2.0-7.7); Basophil# 0.04 X10^3/uL; Basophil% 0.7 % (0-1); Eosinophil# 0.23 X10^3/uL; Eosinophils% 3.8 % (0-5); Hematocrit 44.5 % (40-54); Hemoglobin 14.4 g/dL (13.0-16.5); Lymphocyte # 1.57 X10^3/ul (0.83-4.51); Lymphocyte % 26.1 % (19-41); Mean Corp Hgb Conc 32.4 g/dL (32-36); Mean Corpuscular Hgb 29.5 pg (27.0-32.0); Mean Corpuscular Volume 91.2 fL (80-94); Monocyte# 0.54 X10^3/uL; NRBC Flagged by Analyzer 0 % (0-5); Neutrophil # 3.62 X10^3/uL (2.7-7.7); Neutrophil % 60.1 % (47-70); Platelet Count 227 K/mm3 (150-450); RBC Distribution Width CV 13.1 % (11.6-14.6); RBC Distribution Width SD 43.6 fl (35.1-43.9); Red Blood Count 4.88 M/mm3 (4.6-6.2)
[2023-03-23 13:10] LABS: AST(SGOT) 52 U/L (15-37); Alanine Aminotransfer ALT/SGPT 104 U/L (16-61); Albumin, Serum 3.9 g/dL (3.2-5.0); Alkaline Phosphatase 67 U/L (45-117); Anion Gap 7 (5-15); BUN 14 mg/dL (7-18); BUN/Creat Ratio 15.4 RATIO (10-20); Calcium,Total 9.2 mg/dL (8.5-10.1); Chloride 106 mmol/L (98-107); Creatinine, Serum 0.91 mg/dL (0.70-1.30); EST Glomerular Filtration Rate 94 mL/min (>60); Est Glom Filt Rate - Afr Amer 114 mL/min (>60); Globulin 3.9 g/dL (2.2-4.2); Glucose 97 mg/dL (74-106); Potassium 4.2 mmol/L (3.5-5.1); Protein, Total 7.8 g/dL (6.4-8.2); Sodium Level 138 mmol/L (136-145)
[2023-03-27 16:09] LABS: Testosterone, % Free 2.99 % (1.50-4.20); Testosterone, Free 7.92 ng/dL (5.00-21.00); Testosterone, Total 265 ng/dL (264-916)
== END | disposition home or self-care (01) ==
LOC: MFPLAB 10:15
PROVIDERS: PCP Family Medicine; Visit Provider Family Medicine
DX: R74.01 Elevation of levels of liver transaminase levels (principal); E66.01 Morbid (severe) obesity due to excess calories; G47.33 Obstructive sleep apnea (adult) (pediatric); R79.89 Other specified abnormal findings of blood chemistry; Z11.59 Encounter for screening for other viral diseases
CPT/HCPCS: 36415; 80053; 84402; 84403; 85025; 86803

== ENCOUNTER → 2023-03-25 | Outpatient (CLI) | payer BC, SELFPAY ==
[2023-03-25 19:01] LABS: Hepatitis C Antibody Non-Reactive (Nonreactive)
== END | disposition home or self-care (01) ==
LOC: MFPLAB 15:36
PROVIDERS: PCP Family Medicine; Visit Provider Family Medicine
DX: Z11.59 Encounter for screening for other viral diseases (principal)
CPT/HCPCS: 36415; 86803

== ENCOUNTER → 2024-02-28 | Outpatient (CLI) | payer BC, SELFPAY ==
--- NOTE | 2024-02-28 10:31 | RAD_ITS ---
INDICATION: RALES EXAMINATION/TECHNIQUE: X-RAY - XR Chest 2 Views COMPARISON: Prior study dated: 07/15/2021 FINDINGS: LINES/DEVICES: None. LUNGS: No consolidation, edema or effusion. No pneumothorax. MEDIASTINUM AND CARDIOVASCULAR STRUCTURES: Cardiac silhouette not enlarged. Central airways and mediastinal contour are unremarkable. BONES AND SOFT TISSUES: Unremarkable. RAD/Chest PA and Lateral IMPRESSION: No radiographic evidence of acute cardiopulmonary disease. Electronically Signed: Sean Barroso MD at 11:00 EDT ,
[2024-02-28 12:17] LABS: Absolute Neutrophil Count 4.6 X10^3/uL (2.0-7.7); Basophil# 0.02 X10^3/uL; Basophil% 0.3 % (0-1); Eosinophil# 0.02 X10^3/uL; Eosinophils% 0.3 % (0-5); Hematocrit 43.7 % (40-54); Hemoglobin 14.6 g/dL (13.0-16.5); Lymphocyte % 11.7 % (19-41); Mean Corp Hgb Conc 33.4 g/dL (32-36); Mean Corpuscular Hgb 29.8 pg (27.0-32.0); Mean Corpuscular Volume 89.2 fL (80-94); Mean Platelet Vol. 9.9 fl (6.2-12.0); Monocyte# 0.58 X10^3/uL; Monocyte% 9.7 % (0-10); NRBC Flagged by Analyzer 0 % (0-5); Neutrophil # 4.64 X10^3/uL (2.7-7.7); Neutrophil % 77.8 % (47-70); Platelet Count 165 K/mm3 (150-450); RBC Distribution Width CV 13.1 % (11.6-14.6); RBC Distribution Width SD 42.7 fl (35.1-43.9)
[2024-02-28 12:48] LABS: ALB/GLOB Ratio 0.9 RATIO (0.9-2.4); AST(SGOT) 36 U/L (15-37); Alanine Aminotransfer ALT/SGPT 57 U/L (16-61); Albumin, Serum 3.5 g/dL (3.2-5.0); Alkaline Phosphatase 60 U/L (45-117); Anion Gap 8 (5-15); BUN 11 mg/dL (7-18); BUN/Creat Ratio 9.4 RATIO (10-20); Calcium,Total 8.5 mg/dL (8.5-10.1); Chloride 104 mmol/L (98-107); Creatinine, Serum 1.17 mg/dL (0.70-1.30); EST Glomerular Filtration Rate 70 mL/min (>60); Est Glom Filt Rate - Afr Amer 85 mL/min (>60); Globulin 3.8 g/dL (2.2-4.2); Glucose 116 mg/dL (74-106); Potassium 3.5 mmol/L (3.5-5.1); Protein, Total 7.3 g/dL (6.4-8.2); Sodium Level 135 mmol/L (136-145)
[2024-02-29 17:07] LABS: Lyme Scn Total Ab w/Rflx Negative (Negative)
== END | disposition home or self-care (01) ==
PROVIDERS: PCP Family Medicine; Referring Provider Family Medicine; Visit Provider Family Medicine
DX: R09.89 Other specified symptoms and signs involving the circulatory and respiratory systems (principal); R68.89 Other general symptoms and signs
CPT/HCPCS: 36415; 71046; 80053; 85025; 86140; 86618